=== PATIENT | female | born 1945 | race American Indian/Alaskan Native ===

== ENCOUNTER 2022-03-20 14:33 | Inpatient (IN) | payer MEDICARE, OTHER ==
[2022-03-20] MEDS ORDERED: SODIUM CHLORIDE 0.9% 500 ML 500 ML IV ONE (15:41)
--- NOTE | 2022-03-20 15:45 | Emergency Department Report ---
ED General Adult HPI - General Chief complaint: Weakness Stated complaint: LOW BLOOD PRESSURE Time Seen by Provider: 03/20/22 15:34 Source: patient, EMS (Verbal report received from emergency medical services. EMS documentation not available at time of chart dictation ), RN notes reviewed Mode of arrival: Stretcher Limitations: Altered Mental Status, Physical Limitation - History of Present Illness Initial comments: The patient was evaluated in the emergency department for symptoms described in the history of present illness. He/she was evaluated in the context of the global COVID-19 pandemic, which necessitated consideration that the patient mi ght be at risk for infection with the virus that causes COVID-19. Institutional protocols and algorithms that pertain to the evaluation of patients at risk for COVID-19 are in a state of rapid change based on information released by regulatory bodies including the CDC and federal and state organizations. These policies and algorithms were followed during the patient's care in the emergency department. Please note that these policies, procedures and recommendations changed on a rapid basis. Nephrology: Dr. Green Past medical history: Anemia of chronic disease, end-stage renal disease on h emodialysis, iron deficiency anemia, malnutrition, secondary hyperparathyroidism This is a 76-year-old female. She is brought to the hospital by emergency medical services with an EMS articulated complaint of low blood pressure during hemodialysis. Apparently patient's blood pressure dropped to the 70s during hemodialysis. It is not clear if she received a full hemodialysis session. EMS reports that blood pressure improved with resolution of hemodialysis, and also resolved with IV fluids given in the field. EMS also articulated to myself that son has endorsed decreased mentation and confusion over the past month. The patient herself is currently awake, confused, and moving 4 extremities. She states that she is cold, and is asking for a blanket. She otherwise denies complaints. The patient is confused, and does not describe the qualitative nature of symptoms, exacerbating factors relieving factors or aggravating factors. The patient denies physical pain to myself -: This afternoon - Related Data Allergies Allergy/AdvReac Type Severity Reaction Status Date / Time No Known Allergies Allergy Verified 03/20/22 14:42 ED Review of Systems ROS: Stated complaint: LOW BLOOD PRESSURE Other details as noted in HPI Comment: Unobtainable due to pts medical conditions ED Physical Exam - General Limitations: Altered Mental Status, Physical Limitation General appearance: in no apparent distress - Head Head exam: Present: atraumatic, normocephalic - Eye Eye exam: Present: normal appearance, EOMI, other (Corneal opacification consistent with cataract noted in the bilateral eye). Absent: nystagmus - ENT ENT exam: Present: normal exam, normal orophraynx, mucous membranes moist - Neck Neck exam: Present: normal inspection, full ROM. Absent: tenderness, meningismus - Respiratory Respiratory exam: Present: decreased breath sounds. Absent: respiratory distress, wheezes, rales, rhonchi, stridor - Cardiovascular Cardiovascular Exam: Present: regular rate, normal rhythm, normal heart sounds, JVD. Absent: bradycardia, tachycardia, irregular rhythm, rubs, gallop - GI/Abdominal GI/Abdominal exam: Present: soft. Absent: distended, tenderness, guarding, rebound, rigid, pulsatile mass - Extremities Exam Extremities exam: Present: full ROM, pedal edema, other (Patient has dry gangrene noted in her bilateral second toes. On the right posterior distal lower extremity, there is a chronic appearing wound with dry gangrene. There appears to be exposed tissue. Pulses are thready.). Absent: normal inspection (There is a right upper extremity fistula with an appropriate thrill. There is right upper extremity ecchymosis) - Back Exam Back exam: Present: normal inspection. Absent: tenderness, CVA tenderness (R), CVA tenderness (L), paraspinal tenderness, vertebral tenderness - Neurological Exam Neurological exam: Present: altered, other (There is no facial droop. The tongue is midline. EOMI. 5 out of 5 strength in 4 extremities.) - Psychiatric Psychiatric exam: Present: flat affect, other (Sensation is intact to light touch in 4 extremities.) - Skin Skin exam: Present: warm - Other Other exam information: 2+ femoral pulses noted in the bilateral lower extremities. 2+ radial pulses noted in the bilateral upper extremities. The bilateral lower extremities are warm. The patient is moving 4 extremities. There is no pain with passive range of motion of the upper or lower extremities ED Course Vital Signs 03/20/22 03/20/22 14:35 17:39 Temperature 97.7 F Pulse Rate 67 72 Respiratory 18 13 Rate Blood Pressure 152/68 121/51 [Left] O2 Sat by Pulse 98 98 Oximetry - Reevaluation(s) Reevaluation #1: 03/20/22 17:04 Differential diagnosis, including but not limited to: Dialysis disequilibrium syndrome, intracranial hemorrhage, electrolyte derangement, thyroid derangement, dry gangrene, peripheral artery disease, chronic wound Assessment and plan: 76-year-old female with a primary EMS articulated complaint of low blood pressure during hemodialysis. Her blood pressure is acceptable at this time. EMS reports that patient appears confused over the past month. She is found to have evidence of poor distal circulation, as well as dry gangrene, and a chronic appearing wound on the right posterior lower extremity. We will obtain consultation with both general surgery and nephrology. Her insurance verification rep Dr. Green does not present to this hospital. We will obtain appropriate laboratory studies, x-ray the chest, x-ray of the lower extremities, and duplex arterial ultrasonography of the bilateral lower extremities. We will also obtain CT scan of the brain. Reassess after initial data points. Anticipate admission to the medical service with surgery and nephrology to follow in consultation 03/20/22 17:12 I discussed the patient's history, physical, and clinical impression with both nephrology on-call, Dr. Jonn Armstrong, And general surgery on-call, Dr. Margret Guerrier They are in agreement with the plan of care, and they will follow in consultation. Nephrology request call back once laboratory studies have resulted 03/20/22 19:19 Laboratory studies are communicated to the aforementioned insurance verification rep. CT scan of the brain is reviewed and appreciated. CT scan of the brain is also reviewed by neurosurgeon on-call, Dr. Levy. He advises this is likely not an emergent finding. He advises that a CAT scan can be obtained in 4 to 6 hours. He also advises that neurosurgery can follow in consultation, if the inpatient team would like him to follow for this incidental abnormal finding. We will load with ceftriaxone and vancomycin. Hospital physician, Dr. Mcarthur to admit patient to the medical service. ED Medical Decision Making - Lab Data Result diagrams: 03/20/22 17:09 03/20/22 17:09 Vital Signs 03/20/22 14:35 Temperature 97.7 F Pulse Rate 67 Respiratory 18 Rate Blood Pressure 152/68 [Left] O2 Sat by Pulse 98 Oximetry Lab Results 03/20/22 03/20/22 03/20/22 Range/Units 17:09 17:09 17:09 WBC 10.6 (4.5-11.0) K/mm3 RBC 2.32 L (3.65-5.03) M/mm3 Hgb 7.0 L (10.1-14.3) gm/dl Hct 21.1 L (30.3-42.9) % MCV 91 (79-97) fl MCH 30 (28-32) pg MCHC 33 (30-34) % RDW 18.7 H (13.2-15.2) % Plt Count 250 (140-440) K/mm3 Lymph % (Auto) 7.1 L (13.4-35.0) % [place] % (Auto) 6.2 (0.0-7.3) % Eos % (Auto) 0.7 (0.0-4.3) % Baso % (Auto) 0.3 (0.0-1.8) % Lymph # (Auto) 0.7 L (1.2-5.4) K/mm3 [place] # (Auto) 0.7 (0.0-0.8) K/mm3 Eos # (Auto) 0.1 (0.0-0.4) K/mm3 Baso # (Auto) 0.0 (0.0-0.1) K/mm3 Seg Neutrophils % 85.7 H (40.0-70.0) % Seg Neutrophils # 9.0 H (1.8-7.7) K/mm3 PT 13.5 (12.2-14.9) Sec. INR 0.93 (0.87-1.13) Sodium 136 L (137-145) mmol/L Potassium 4.2 (3.6-5.0) mmol/L Chloride 97.7 L (98-107) mmol/L Carbon Dioxide 24 (22-30) mmol/L Anion Gap 19 mmol/L BUN 46 H (7-17) mg/dL Creatinine 7.0 H (0.6-1.2) mg/dL Estimated GFR 6 ml/min BUN/Creatinine Ratio 7 % Glucose 79 (65-100) mg/dL Lactic Acid (0.7-2.0) mmol/L Calcium 8.6 (8.4-10.2) mg/dL Total Bilirubin 0.40 (0.1-1.2) mg/dL AST 17 (5-40) units/L ALT 9 (7-56) units/L Alkaline Phosphatase 88 (35-129) units/L Ammonia (25-60) umol/L Total Creatine Kinase 100 (30-135) units/L Troponin T 0.203 H* (0.00-0.029) ng/mL Total Protein 5.5 L (6.3-8.2) g/dL Albumin 2.6 L (3.9-5) g/dL Albumin/Globulin Ratio 0.9 % Salicylates (2.8-20.0) mg/dL Acetaminophen (10.0-30.0) ug/mL 03/20/22 03/20/22 03/20/22 Range/Units 17:09 17:09 17:09 WBC (4.5-11.0) K/mm3 RBC (3.65-5.03) M/mm3 Hgb (10.1-14.3) gm/dl Hct (30.3-42.9) % MCV (79-97) fl MCH (28-32) pg MCHC (30-34) % RDW (13.2-15.2) % Plt Count (140-440) K/mm3 Lymph % (Auto) (13.4-35.0) % [place] % (Auto) (0.0-7.3) % Eos % (Auto) (0.0-4.3) % Baso % (Auto) (0.0-1.8) % Lymph # (Auto) (1.2-5.4) K/mm3 [place] # (Auto) (0.0-0.8) K/mm3 Eos # (Auto) (0.0-0.4) K/mm3 Baso # (Auto) (0.0-0.1) K/mm3 Seg Neutrophils % (40.0-70.0) % Seg Neutrophils # (1.8-7.7) K/mm3 PT (12.2-14.9) Sec. INR (0.87-1.13) Sodium (137-145) mmol/L Potassium (3.6-5.0) mmol/L Chloride (98-107) mmol/L Carbon Dioxide (22-30) mmol/L Anion Gap mmol/L BUN (7-17) mg/dL Creatinine (0.6-1.2) mg/dL Estimated GFR ml/min BUN/Creatinine Ratio % Glucose (65-100) mg/dL Lactic Acid 1.00 (0.7-2.0) mmol/L Calcium (8.4-10.2) mg/dL Total Bilirubin (0.1-1.2) mg/dL AST (5-40) units/L ALT (7-56) units/L Alkaline Phosphatase (35-129) units/L Ammonia < 10.0 L (25-60) umol/L Total Creatine Kinase (30-135) units/L Troponin T (0.00-0.029) ng/mL Total Protein (6.3-8.2) g/dL Albumin (3.9-5) g/dL Albumin/Globulin Ratio % Salicylates < 0.3 L (2.8-20.0) mg/dL Acetaminophen (10.0-30.0) ug/mL 03/20/22 Range/Units 17:09 WBC (4.5-11.0) K/mm3 RBC (3.65-5.03) M/mm3 Hgb (10.1-14.3) gm/dl Hct (30.3-42.9) % MCV (79-97) fl MCH (28-32) pg MCHC (30-34) % RDW (13.2-15.2) % Plt Count (140-440) K/mm3 Lymph % (Auto) (13.4-35.0) % [place] % (Auto) (0.0-7.3) % Eos % (Auto) (0.0-4.3) % Baso % (Auto) (0.0-1.8) % Lymph # (Auto) (1.2-5.4) K/mm3 [place] # (Auto) (0.0-0.8) K/mm3 Eos # (Auto) (0.0-0.4) K/mm3 Baso # (Auto) (0.0-0.1) K/mm3 Seg Neutrophils % (40.0-70.0) % Seg Neutrophils # (1.8-7.7) K/mm3 PT (12.2-14.9) Sec. INR (0.87-1.13) Sodium (137-145) mmol/L Potassium (3.6-5.0) mmol/L Chloride (98-107) mmol/L Carbon Dioxide (22-30) mmol/L Anion Gap mmol/L BUN (7-17) mg/dL Creatinine (0.6-1.2) mg/dL Estimated GFR ml/min BUN/Creatinine Ratio % Glucose (65-100) mg/dL Lactic Acid (0.7-2.0) mmol/L Calcium (8.4-10.2) mg/dL Total Bilirubin (0.1-1.2) mg/dL AST (5-40) units/L ALT (7-56) units/L Alkaline Phosphatase (35-129) units/L Ammonia (25-60) umol/L Total Creatine Kinase (30-135) units/L Troponin T (0.00-0.029) ng/mL Total Protein (6.3-8.2) g/dL Albumin (3.9-5) g/dL Albumin/Globulin Ratio % Salicylates (2.8-20.0) mg/dL Acetaminophen 5.0 L (10.0-30.0) ug/mL - EKG Data -: EKG Interpreted by Me EKG shows normal: sinus rhythm - EKG Data When compared to previous EKG there are: previous EKG unavailable 03/20/22 17:38 The EKG is interpreted at 17: 34 Sinus rhythm, rate 66 bpm. Normal axis, left ventricular hypertrophy, right bundle branch block, QTC 4 4 8 ms. PVC. Abnormal EKG. No endorsement of chest pain. Not a STEMI. - Radiology Data Radiology results: pending, report reviewed, image reviewed interpreted by me: Bilateral feet INDICATION: Foot wound FINDINGS: Diffuse vascular calcifications in bilateral feet. MTP joints show degenerative changes great toe bilaterally. No definite destructive change is seen in either foot. Degenerative change throughout the hindfoot is also noted. IMPRESSION: Mild diffuse soft tissue edema. Degenerative changes seen throughout the foot. Question soft tissue injury/defect in posterior right ankle soft tissues. No definite destructive change however if there is further clinical concern for osteomyelitis MRI is recommended. Right tibia and fibula 5 views INDICATION: Pain FINDINGS: Vascular calcifications are seen. No acute fracture is identified. No bony destructive change is definitely seen. No focal soft tissue swelling is identified. Signer Name: Errol Hemphill MD Signed: 03/20/2022 4:12 PM Workstation Name: [id number] CHEST 1 VIEW 03/20/2022 4:05 PM INDICATION / CLINICAL INFORMATION: Altered Mental Status. COMPARISON: None available. FINDINGS: SUPPORT DEVICES: None. HEART / MEDIASTINUM: No significant abnormality. LUNGS / PLEURA: Mild areas of increased interstitial prominence. Within the right mid and upper lung there is some interstitial prominence with mild rounded nodularity and density measuring 1.1 cm. There may be a small left effusion. No pneumothorax. ADDITIONAL FINDINGS: Left vascular stents in the arm IMPRESSION: 1. Increased interstitial prominence. Mild areas of nodularity in the right upper lung measuring 1.1 cm. A follow-up CT chest is recommended for pulmonary nodule. Stat report given. Signer Name: Errol Hemphill MD Signed: 03/20/2022 4:08 PM Workstation Name: [id number] DUPLEX DOPPLER LOWER EXTREMITY ARTERIAL, BILATERAL INDICATION / CLINICAL INFORMATION: Lower extremity wounds and suspected peripheral ar. TECHNIQUE: Arterial duplex examination of both lower extremities performed using B-mode, color flow and spectral Doppler assessment. FINDINGS: RIGHT: Common Femoral Artery: PSV 144 cm/sec. Biphasic waveform. Proximal SFA: PSV 126 cm/sec. Biphasic waveform. Mid SFA: PSV 104 cm/sec. Biphasic waveform. Distal SFA: PSV 153 cm/sec. Biphasic waveform. Popliteal Artery: PSV 56 cm/sec. Biphasic waveform. Posterior Tibial Artery: PSV 13 cm/sec. Monophasic waveform. Dorsalis Pedis Artery: PSV 12 cm/sec. Monophasic waveform. LEFT: Common Femoral Artery: PSV 116 cm/sec. Triphasic waveform. Proximal SFA: PSV 100 cm/sec. Biphasic waveform. Mid SFA: PSV 96 cm/sec. Biphasic waveform. Distal SFA: PSV 97 cm/sec. Triphasic waveform. Popliteal Artery: PSV 78 cm/sec. Triphasic waveform. Posterior Tibial Artery: PSV 41 cm/sec. Monophasic waveform. Dorsalis Pedis Art henri: PSV 41 cm/sec. Monophasic waveform. ADDITIONAL FINDINGS: None. RIGHT ITALIA: Not performed LEFT ITALIA: Not performed IMPRESSION: 1. Bilateral distal crural peripheral vascular disease with abnormal monophasic waveforms both forelegs. No occlusive disease Ankle-Brachial Index (ITALIA): - Calcified arteries > 1.4 - Normal = 0.9-1.4 - Mild PAD = 0.7-0.89 - Moderate PAD = 0.51-0.69 - Severe PAD < 0.5 Doppler Waveform: - Triphasic is normal. - Biphasic is abnormal if clear transition from triphasic signal along vascular tree. - Monophasic is abnormal. Signer Name: Geoff Meneses MD Signed: 03/20/2022 4:44 PM Workstation Name: [employer] [place] [address] [address] [place] [address] Cat Scan Report Signed Patient: KRISS RODRÍGUEZ MR#: [id number] 3 : 1945 Acct:[id number] Age/Sex: 76 / F ADM Date: 03/20/22 Loc: ED Attending Dr: Ordering Physician: MIN KENNY MD Date of Service: 03/20/22 Procedure(s): CT head/brain wo con Accession Number(s): [id number] cc: MIN KENNY MD CT head/brain wo con INDICATION / CLINICAL INFORMATION: 76 years Female; Altered Mental Status. TECHNIQUE: Routine CT head without contrast. All CT scans at this location are performed using CT dose reduction for ALARA by means of automated exposure control. COMPARISON: None. FINDINGS: BRAIN / INTRACRANIAL CONTENTS: There is a small area of mild increased attenuation adjacent to the atrium of the right lateral ventricle. This finding measures 12 mm in maximum dimension. Intraventricular meningioma, heterotopic saba matter, or perhaps subependymoma hemorrhage, most likely subacute, could be considered. Comparison with any prior exam would be helpful, if available. Alternatively, close follow-up is recommended. Encephalomalacia seen in the left parietal lobe, with associated atrophic dilat ation of the adjacent left lateral ventricle. Findings may be related to old branch MCA infarct or perhaps prior trauma. 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 Old lacunar-type infarct is seen in the superior thalamic region on the left. Otherwise, no acute hemorrhage, mass effect, midline shift, hydrocephalus, or acute, large territorial infarct. Moderate, diffuse cerebral and cerebellar atrophy. Marked degree of hippocampal atrophy suggested bilaterally. There are moderate, confluent areas of decreased attenuation in the white matter of the cerebral hemispheres. These are nonspecific findings and may be related to microangiopathy (hypertension, diabetes, atherosclerosis), given the patient's age. It might be difficult to evaluate for small areas of ischemia without diffusion imaging by MRI. CRANIOCERVICAL JUNCTION: No significant abnormality. ORBITS: No significant abnormality of visualized orbits. SINUSES / MASTOIDS: Visualized paranasal sinuses and mastoid air cells are essentially clear. ADDITIONAL FINDINGS: Significant canal narrowing seen at C3-4 from disc disease anteriorly and ligamentum flavum hypertrophy posteriorly. Findings most likely affect the cervical cord. Follow-up with MRI of the cervical spine, as clinically warranted. Significant atherosclerotic disease is seen in the anterior and posterior circulation. IMPRESSION: 1. Findings near the atrium of the right lateral ventricle, as described above. If no prior exams are available, close follow-up with pre and postcontrast CT and/or MRI of the head would be helpful for further evaluation. 2. Probable cord impingement at C3-4, as described above. 3. Otherwise, no focal mass, hemorrhage, hydrocephalus, or acute, large infarct appreciated. Signer Name: Juan Manuel Ramirez MD, III Signed: 03/20/2022 6:13 PM Workstation Name: [id number] Transcribed By: HR Dictated By: Juan Manuel Ramirez MD Electronically Authenticated By: Juan Manuel Ramirez MD Signed Date/Time: 03/20/221812 DD/ 02 TD/TT: Critical care attestation.: If time is entered above; I have spent that time in minutes in the direct care of this critically ill patient, excluding procedure time. ED Disposition Clinical Impression: End-stage renal disease on hemodialysis, Gangrene of toe of both feet, Wound of right lower extremity, Peripheral artery disease, Mental status, decreased Disposition: 09 ADMITTED INPATIENT Is pt being admited?: Yes Does the pt Need Aspirin: No Condition: Fair
--- NOTE | 2022-03-20 17:12 | XRay Report ---
CHEST 1 VIEW 03/20/2022 4:05 PM INDICATION / CLINICAL INFORMATION: Altered Mental Status. COMPARISON: None available. FINDINGS: SUPPORT DEVICES: None. HEART / MEDIASTINUM: No significant abnormality. LUNGS / PLEURA: Mild areas of increased interstitial prominence. Within the right mid and upper lung there is some interstitial prominence with mild rounded nodularity and density measuring 1.1 cm. Ther e may be a small left effusion. No pneumothorax. ADDITIONAL FINDINGS: Left vascular stents in the arm IMPRESSION: 1. Increased interstitial prominence. Mild areas of nodularity in the right upper lung measuring 1.1 cm. A follow-up CT chest is recommended for pulmonary nodule. Stat report given. Signer Name: Errol Hemphill MD Signed: 03/20/2022 5:08 PM Workstation Name: [id number]
--- NOTE | 2022-03-20 17:17 | XRay Report ---
Bilateral feet INDICATION: Foot wound FINDINGS: Diffuse vascular calcifications in bilateral feet. MTP joints show degenerative changes gre at toe bilaterally. No definite destructive change is seen in either foot. Degenerative change throug hout the hindfoot is also noted. IMPRESSION: Mild diffuse soft tissue edema. Degenerative changes seen throughout the foot. Question soft tissue i njury/defect in posterior right ankle soft tissues. No definite destructive change however if there i s further clinical concern for osteomyelitis MRI is recommended. Right tibia and fibula 5 views INDICATION: Pain FINDINGS: Vascular calcifications are seen. No acute fracture is identified. No bony destructive luke ge is definitely seen. No focal soft tissue swelling is identified. Signer Name: Errol Hemphill MD Signed: 03/20/2022 5:12 PM Workstation Name: [id number]
[2022-03-20 17:43] LABS: Basophils % (Auto) 0.3 % (0.0-1.8); Eosinophils # (Auto) 0.1 K/mm3 (0.0-0.4); Eosinophils % (Auto) 0.7 % (0.0-4.3); Hematocrit 21.1 % (30.3-42.9); Lymphocytes # (Auto) 0.7 K/mm3 (1.2-5.4); Lymphocytes % (Auto) 7.1 % (13.4-35.0); Mean Corpuscular HGB Conc 33 % (30-34); Mean Corpuscular Volume 91 fl (79-97); Monocytes # (Auto) 0.7 K/mm3 (0.0-0.8); Monocytes % (Auto) 6.2 % (0.0-7.3); Platelet Count 250 K/mm3 (140-440); Red Blood Count 2.32 M/mm3 (3.65-5.03); Red Cell Distribution Width 18.7 % (13.2-15.2)
--- NOTE | 2022-03-20 17:49 | Vascular Lab Report ---
DUPLEX DOPPLER LOWER EXTREMITY ARTERIAL, BILATERAL INDICATION / CLINICAL INFORMATION: Lower extremity wounds and suspected peripheral ar. TECHNIQUE: Arterial duplex examination of both lower extremities performed using B-mode, color flow a nd spectral Doppler assessment. FINDINGS: RIGHT: Common Femoral Artery: PSV 144 cm/sec. Biphasic waveform. Proximal SFA: PSV 126 cm/sec. Biphasic waveform. Mid SFA: PSV 104 cm/sec. Biphasic waveform. Distal SFA: PSV 153 cm/sec. Biphasic waveform. Popliteal Artery: PSV 56 cm/sec. Biphasic waveform. Posterior Tibial Artery: PSV 13 cm/sec. Monophasic waveform. Dorsalis Pedis Artery: PSV 12 cm/sec. Monophasic waveform. LEFT: Common Femoral Artery: PSV 116 cm/sec. Triphasic waveform. Proximal SFA: PSV 100 cm/sec. Biphasic waveform. Mid SFA: PSV 96 cm/sec. Biphasic waveform. Distal SFA: PSV 97 cm/sec. Triphasic waveform. Popliteal Artery: PSV 78 cm/sec. Triphasic waveform. Posterior Tibial Artery: PSV 41 cm/sec. Monophasic waveform. Dorsalis Pedis Artery: PSV 41 cm/sec. Monophasic waveform. ADDITIONAL FINDINGS: None. RIGHT ITALIA: Not performed LEFT ITALIA: Not performed IMPRESSION: 1. Bilateral distal crural peripheral vascular disease with abnormal monophasic waveforms both forele . No occlusive disease Ankle-Brachial Index (ITALIA): - Calcified arteries > 1.4 - Normal = 0.9-1.4 - Mild PAD = 0.7-0.89 - Moderate PAD = 0.51-0.69 - Severe PAD < 0.5 Doppler Waveform: - Triphasic is normal. - Biphasic is abnormal if clear transition from triphasic signal along vascular tree. - Monophasic is abnormal. Signer Name: Geoff Meneses MD Signed: 03/20/2022 5:44 PM Workstation Name: [id number]
[2022-03-20 17:50] LABS: INR 0.93 (0.87-1.13)
[2022-03-20 18:04] LABS: Albumin 2.6 g/dL (3.9-5); Calcium 8.6 mg/dL (8.4-10.2)
--- NOTE | 2022-03-20 18:17 | Cat Scan Report ---
CT head/brain wo con INDICATION / CLINICAL INFORMATION: 76 years Female; Altered Mental Status. TECHNIQUE: Routine CT head without contrast. All CT scans at this location are performed using CT dos e reduction for ALARA by means of automated exposure control. COMPARISON: None. FINDINGS: BRAIN / INTRACRANIAL CONTENTS: There is a small area of mild increased attenuation adjacent to the at rium of the right lateral ventricle. This finding measures 12 mm in maximum dimension. Intraventricul ar meningioma, heterotopic saba matter, or perhaps subependymoma hemorrhage, most likely subacute, co uld be considered. Comparison with any prior exam would be helpful, if available. Alternatively, clos e follow-up is recommended. Encephalomalacia seen in the left parietal lobe, with associated atrophic dilatation of the adjacent left lateral ventricle. Findings may be related to old branch MCA infarct or perhaps prior trauma. 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 Old lacunar-type infarct is seen in the superior thalamic region on the left. Otherwise, no acute hemorrhage, mass effect, midline shift, hydrocephalus, or acute, large territori al infarct. Moderate, diffuse cerebral and cerebellar atrophy. Marked degree of hippocampal atrophy suggested rosangela aterally. There are moderate, confluent areas of decreased attenuation in the white matter of the cerebral nina spheres. These are nonspecific findings and may be related to microangiopathy (hypertension, diabetes , atherosclerosis), given the patient's age. It might be difficult to evaluate for small areas of isc hemia without diffusion imaging by MRI. CRANIOCERVICAL JUNCTION: No significant abnormality. ORBITS: No significant abnormality of visualized orbits. SINUSES / MASTOIDS: Visualized paranasal sinuses and mastoid air cells are essentially clear. ADDITIONAL FINDINGS: Significant canal narrowing seen at C3-4 from disc disease anteriorly and ligame ntum flavum hypertrophy posteriorly. Findings most likely affect the cervical cord. Follow-up with MR I of the cervical spine, as clinically warranted. Significant atherosclerotic disease is seen in the anterior and posterior circulation. IMPRESSION: 1. Findings near the atrium of the right lateral ventricle, as described above. If no prior exams are available, close follow-up with pre and postcontrast CT and/or MRI of the head would be helpful for further evaluation. 2. Probable cord impingement at C3-4, as described above. 3. Otherwise, no focal mass, hemorrhage, hydrocephalus, or acute, large infarct appreciated. Signer Name: Juan Manuel Ramirez MD, III Signed: 03/20/2022 6:13 PM Workstation Name: [id number]
[2022-03-20 18:21] LABS: Chol/HDL Ratio 3.24 %
[2022-03-20 18:22] LABS: Erythrocyte Sedimentation Rate > 140.0 mm/Hr (0-20)
--- NOTE | 2022-03-20 19:00 | History and Physical Report ---
History of Present Illness Chief complaint: Her blood sugar pressure was low in dialysis History of present illness: 76 YO Female with Vascular Dementia, Cerebral Atherosclerosis, ESRD on HD, Anemia of Chronic Disease, Malnutrition, Hyperparathyroidism, PAD, Debility presents to ED for evaluation. Patient is guarded with diminished cognition at the time my evaluation is unable to provide history. Patient history provided by son who is at bedside during exam and interview. Patient is bedbound and nonambulatory and has a palliative performance score of 30% and requires 6/6 assistance with activities of daily living. Patient has decreased verbalization and is unable to make needs known or follow simple commands. As per son the patient developed low blood pressure during dialysis today. Patient was found t o have a systolic blood pressure in the 70s. EMS was notified and upon arrival the patient was found to be in distress and subsequently transported to [facility] for further care and evaluation of the aforementioned symptoms. The patient was seen and evaluated in the emergency department. All lab and imaging studies reviewed. Patient was found to have right lower limb ischemia complicated by dragging gangrene, end-stage renal disease, hyponatremia. Patient admitted to medical floor due to increased risk of worsening symptoms and for medical stabilization. Nephrology team consulted in ED. Interventional radiology team consulted in ED. No reports of fever, chills, chest pain, palpitation, pro ductive cough, skin rash, recent contact, known exposure to COVID-19. No prior admission for review. No medication listed at time of admission for reconciliation. Advanced care planning conducted in ED. Past History Past Medical History: ESRD, hypertension, other (See HPI) Past Surgical History: Other (Dialysis access) Social history: single, lives with family. denies: smoking, alcohol abuse, prescription drug abuse Family history: hypertension Medications and Allergies Allergies Allergy/AdvReac Type Severity Reaction Status Date / Time No Known Allergies Allergy Verified 03/20/22 19:20 Review of Systems ROS unobtainable: due to mental status Exam - Constitutional Vitals: Temp Pulse Resp BP Pulse Ox 97.7 F 72 13 121/51 98 03/20/22 14:35 03/20/22 17:39 03/20/22 17:39 03/20/22 17:39 03/20/22 17:39 General appearance: Present: mild distress, cachectic - EENT Eyes: Present: PERRL ENT: hearing intact, clear oral mucosa - Neck Neck: Present: supple, normal ROM - Respiratory Respiratory effort: labored Respiratory: bilateral: diminished - Cardiovascular Heart Sounds: Present: S1 & S2. Absent: rub, click - Extremities Extremity abnormal: black, pulses diminished Peripheral Pulses: abnormal - Abdominal General gastrointestinal: Present: soft, non-tender, non-distended - Integumentary Integumentary: Present: clear, dry - Musculoskeletal Musculoskeletal: generalized weakness - Psychiatric Psychiatric: no appropriate mood/affect, no intact judgment & insight - Neurologic Neurologic: CNII-XII intact, no focal deficits, no gait normal HEART Score - HEART Score Troponin: Troponin T 0.203 ng/mL (0.00-0.029) H* 03/20/22 17:09 Results - Labs CBC & Chem 7: 03/20/22 17:09 03/20/22 17:09 Labs: Abnormal lab results 03/20/22 03/20/22 03/20/22 Range/Units 17:09 17:09 17:09 RBC 2.32 L (3.65-5.03) M/mm3 Hgb 7.0 L (10.1-14.3) gm/dl Hct 21.1 L (30.3-42.9) % RDW 18.7 H (13.2-15.2) % Lymph % (Auto) 7.1 L (13.4-35.0) % Lymph # (Auto) 0.7 L (1.2-5.4) K/mm3 Seg Neutrophils % 85.7 H (40.0-70.0) % Seg Neutrophils # 9.0 H (1.8-7.7) K/mm3 Sodium 136 L (137-145) mmol/L Chloride 97.7 L (98-107) mmol/L BUN 46 H (7-17) mg/dL Creatinine 7.0 H (0.6-1.2) mg/dL Ammonia (25-60) umol/L Troponin T 0.203 H* (0.00-0.029) ng/mL C-Reactive Protein 7.30 H (0.00-1.30) mg/dL Total Protein 5.5 L (6.3-8.2) g/dL Albumin 2.6 L (3.9-5) g/dL Salicylates (2.8-20.0) mg/dL Acetaminophen (10.0-30.0) ug/mL 03/20/22 03/20/22 03/20/22 Range/Units 17:09 17:09 17:09 RBC (3.65-5.03) M/mm3 Hgb (10.1-14.3) gm/dl Hct (30.3-42.9) % RDW (13.2-15.2) % Lymph % (Auto) (13.4-35.0) % Lymph # (Auto) (1.2-5.4) K/mm3 Seg Neutrophils % (40.0-70.0) % Seg Neutrophils # (1.8-7.7) K/mm3 Sodium (137-145) mmol/L Chloride (98-107) mmol/L BUN (7-17) mg/dL Creatinine (0.6-1.2) mg/dL Ammonia < 10.0 L (25-60) umol/L Troponin T (0.00-0.029) ng/mL C-Reactive Protein (0.00-1.30) mg/dL Total Protein (6.3-8.2) g/dL Albumin (3.9-5) g/dL Salicylates < 0.3 L (2.8-20.0) mg/dL Acetaminophen 5.0 L (10.0-30.0) ug/mL Assessment and Plan - Patient Problems (1) Ischemia of right lower extremity Status: Acute Plan to address problem: Lower extremity arterial duplex, vascular surgery team consulted, supportive care. 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 Wound care team consulted. (3) End stage renal disease Status: Acute Plan to address problem: Nephrology team consulted in ED, dialysis as per renal team. (4) Vascular dementia Status: Acute Qualifiers: Dementia behavioral disturbance: without behavioral disturbance Qualified Code(s): F01.50 - Vascular dementia without behavioral disturbance Plan to address problem: Verbal prompting, verbal redirection, benzodiazepine therapy as clinically indicated. (5) Cerebral atherosclerosis Status: Acute Plan to address problem: Risk factor reduction, antiplatelet therapy as clinically indicated. (6) Malnutrition Status: Acute Qualifiers: Malnutrition type: protein-calorie malnutrition Protein-calorie malnutrition severity: severe Qualified Code(s): E43 - Unspecified severe protein-calorie malnutrition Plan to address problem: Increase protein intake, dietary supplementation. (7) Peripheral artery disease Status: Acute Plan to address problem: Chronic, supportive care, vascular surgery team consulted. (8) DVT prophylaxis Status: Acute Plan to address problem: SCDs bilateral lower extremities while in bed (9) Advance care planning Status: Acute Plan to address problem: Disease education conducted, care plan discussed, diagnoses discussed, prognosis discussed, patient is full code. Patient son acknowledges understanding and agreement with current care plan. +30 minutes. (10) Preventative health care Status: Acute Plan to address problem: Patient son regarding patient prognosis. Patient son counseled regarding future need for end-of-life care. Patient son counseled regarding outpatient follow-up for all age and risk factor appropriate screening test. +30 minutes.
[2022-03-20] MEDS ORDERED: ONDANSETRON 4 MG/2 ML INJ IV PRN (19:10)
[2022-03-20] MEDS ORDERED: ALBUTEROL 2.5 MG/3 ML NEBU IH PRN (19:10)
[2022-03-20] MEDS ORDERED: ACETAMINOPHEN 325 MG TAB PO PRN (19:10)
[2022-03-20] MEDS ORDERED: oxyCODONE /ACETAMINOPHEN 5-325MG TAB PO PRN (19:10)
[2022-03-20] MEDS ORDERED: HYDROmorphone 0.5 MG/0.5 ML INJ IV PRN (19:10)
[2022-03-20] MEDS ORDERED: VANCOMYCIN 500 MG in SODIUM CHLORIDE 0.9% 500 ML 500 ML IV ONE (19:17)
[2022-03-20] MEDS ORDERED: cefTRIAXone/NS 1 GM/50 ML 1 GM/50 ML BAG IV ONE (19:17)
[2022-03-20] MEDS ORDERED: VANCOMYCIN 500 MG in SODIUM CHLORIDE 0.9% 100 ML IV ONE (21:00)
[2022-03-20] MEDS ORDERED: SODIUM CHLORIDE 0.9% 1000 ML 1,000 ML ONE (21:22)
[2022-03-21 00:18] LABS: Hepatitis B Surface Antigen Non-Reactive (Negative); Hepatitis C Virus Antibody Non-Reactive (NonReactive)
--- NOTE | 2022-03-21 01:11 | Cat Scan Report ---
CT HEAD WITHOUT CONTRAST INDICATION / CLINICAL INFORMATION: AMS. TECHNIQUE: All CT scans at this location are performed using CT dose reduction for ALARA by means of automated exposure control. COMPARISON: 03/20/2022 FINDINGS: BRAIN PARENCHYMA: Moderate areas of periventricular and subcortical white matter hypoattenuation, mos t consistent with chronic small vessel ischemic changes. There is stable encephalomalacia probably re lated to remote infarct in the left parietal lobe, left thalamus, and right cerebellar hemisphere. No acute intracranial hemorrhage. There is no evidence of recent infarct. No mass effect or midline sasha ft. VENTRICULAR SYSTEM/EXTRA-AXIAL SPACES: Stable focus of mild increased attenuation adjacent to the atr ium of the right lateral ventricle. These findings remain indeterminate on this noncontrast study. Fo llow recommendations are unchanged. There is moderate cerebral atrophy and ex vacuo dilatation of the occipital horn left lateral ventricle. No extra-axial fluid collection. ORBITS: No acute findings. SKELETAL SYSTEM/SOFT TISSUES: Normal bones and soft tissues. PARANASAL SINUSES/MASTOID AIR CELLS: No significant abnormality. ADDITIONAL FINDINGS: None. IMPRESSION: No significant interval change from 03/20/2022. Stable focus of increased attenuation adjacent to the a trium of the right lateral ventricle. This remains incompletely characterized and follow-up recommend ations are unchanged. Signer Name: Chuy Correa MD Signed: 03/21/2022 1:07 AM Workstation Name: [id number]
[2022-03-21 05:36] LABS: Hemoglobin 6.5 gm/dl (10.1-14.3)
[2022-03-21 05:59] LABS: Calcium 8.6 mg/dL (8.4-10.2)
--- NOTE | 2022-03-21 08:01 | Consultation ---
History of Present Illness - Reason for Consult Consult date: 03/21/22 - History of Present Illness The patient is a 76 YO female with Dementia, Anemia of Chronic Disease, Malnutrition, Hyperparathyroidism, PAD, Debility and ESRD on HD who presented to [facility] ED 03/20/22 for evaluation of hypotension. Patient not able to provide any history and there was no family member at the bedside. Patient is bedbound and nonambulatory. Patient developed low blood pressure during dialysis. Patient was found to have a systolic blood pressure in the 70s. All lab and imaging studies reviewed. Patient was found to have right lower limb ischemia complicated by dry gangrene. Patient admitted to medical floor. Nephrology consulted for ESRD management. Past History Past Medical History: dialysis, ESRD, hypertension, other (See HPI) Past Surgical History: Other (Dialysis access) Social history: single, lives with family. denies: smoking, alcohol abuse, prescription drug abuse Family history: hypertension Medications and Allergies Allergies Allergy/AdvReac Type Severity Reaction Status Date / Time No Known Allergies Allergy Verified 03/20/22 19:20 Active Meds: Active Medications Acetaminophen (Acetaminophen 325 Mg Tab) 650 mg PO Q4H PRN PRN Reason: Pain MILD(1-3)/Fever >100.5/PATTERSON Albuterol (Albuterol 2.5 Mg/3 Ml Nebu) 2.5 mg IH Q4HRT PRN PRN Reason: Shortness Of Breath Hydromorphone HCl (Hydromorphone 0.5 Mg/0.5 Ml Inj) 0.5 mg IV Q13H PRN PRN Reason: Pain , Severe (7-10) Ondansetron HCl (Ondansetron 4 Mg/2 Ml Inj) 4 mg IV Q8H PRN PRN Reason: Nausea And Vomiting Oxycodone/Acetaminophen (Oxycodone /Acetaminophen 5-325mg Tab) 1 tab PO Q6H PRN PRN Reason: Pain, Moderate (4-6) Sodium Chloride (Sodium Chloride 0.9% 10 Ml Flush Syringe) 10 ml IV BID LEONOR Last Admin: 03/20/22 23:55 Dose: 10 ml Sodium Chloride (Sodium Chloride 0.9% 10 Ml Flush Syringe) 10 ml IV PRN PRN PRN Reason: LINE FLUSH Review of Systems ROS unobtainable: due to mental status Exam - Vital Signs Vital signs: Vital Signs Temp Pulse Resp BP Pulse Ox 97.7 F 67 18 152/68 98 03/20/22 14:35 03/20/22 14:35 03/20/22 14:35 03/20/22 14:35 03/20/22 14:35 Results - Lab Results 03/21/22 05:06 03/21/22 05:06 Most recent lab results Calcium 8.6 mg/dL (8.4-10.2) 03/21/22 05:06 Assessment and Plan 1. End Stage Renal Disease: Patient is a on maintenance hemodialysis, ?MWF schedule. Unable to get any further information. Meds dosage based on GFR. Hemodialysis: today. 2. FEN: Hyponatremia, HD today, monitor. Volume overload, UF with HD, monitor. Monitor lytes. 3. Right lower extremity Ischemia / PAD: Associated cellulitis/dry gangrene. Abx. 4. Sepsis: 2/2 R lower extremity cellulitis. Abx. 5. Normocytic Anemia, POA: PRBC as needed. Epogen with HD. 6. Hypotension: BP is better now. Monitor. 7. Dementia. 8. Protein calorie malnutrition. Subjective: Patient was seen and examined at the bedside. Examination: General appearance: well-developed, emaciated, appears stated age, no distress, not cooperative HEENT: ATNC, no icterus Neck: trachea midline Respiratory: clear to auscultation, diminished bibasilar Heart: S1S2, appears regular, no murmur Gastrointestinal: normoactive bowel sounds, NT Integumentary: R 2nd toe necrotic, R arm bruise Neurologic: somnolent, not following any command MS: legs are crossed Ext: trace LE edema noted Hemodialysis access: R arm AVF
--- NOTE | 2022-03-21 09:49 | Progress Note ---
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 On admission, patient was noted to be guarded with diminished cognition and unable to provide history. Patient history provided by son who reported that the. Patient is bedbound and nonambulatory and has a palliative performance score of 30% and requires 6/6 assistance with activities of daily living. Patient has decreased verbalization and is unable to make needs known or follow simple commands. As per son, the patient developed low blood pressure during dialysis today. Prashanth pringle was found to have a systolic blood pressure in the 70s. EMS was notified and upon arrival the patient was found to be in distress and subsequently transported to [facility] for further care and evaluation of the aforementioned symptoms. The patient was seen and evaluated in the emergency department. All lab and imaging studies reviewed. Patient was found to have right lower limb ischemia complicated by dry gangrene, end-stage renal disease, hyponatremia. Patient admitted to medical floor due to increased risk of worsening symptoms and for medical stabilization. Nephrology team consulted in ED. Interventional radiology team consulted in ED. Right ischemic lower extremity Right lower extremity cellulitis/dry gangrene Sepsis. Patient meets criteria given the tachycardia, tachypnea and diagnosis of right lower extremity cellulitis Peripheral vascular disease ESRD on HD Vascular dementia Cerebral atherosclerosis Protein calorie malnutrition 03/21/2022. Continue IV antibiotics. Follow-up blood cultures. Await IR consultation. Continue hemodialysis per nephrology recommendations. Nephrology consultation pending. History Interval history: No new issues overnight. Hospitalist Physical - Constitutional Vitals: Temp Pulse Resp BP Pulse Ox 97.6 F 84 18 142/46 100 03/21/22 09:37 03/21/22 01:08 03/21/22 09:37 03/21/22 09:37 03/21/22 01:08 General appearance: Present: mild distress, cachectic - EENT Eyes: Present: PERRL, EOM intact ENT: hearing intact, clear oral mucosa, dentition normal - Neck Neck: Present: supple, normal ROM - Respiratory Respiratory effort: normal Respiratory: bilateral: CTA - Cardiovascular Rhythm: regular Heart Sounds: Present: S1 & S2. Absent: gallop, rub - Extremities Extremities: no ischemia, No edema, Full ROM - Abdominal General gastrointestinal: soft, non-tender, non-distended, normal bowel sounds - Integumentary Integumentary: Present: clear, warm, dry - Neurologic Neurologic: CNII-XII intact, moves all extremities HEART Score - HEART Score Troponin: Troponin T 0.203 ng/mL (0.00-0.029) H* 03/20/22 17:09 Results - Labs CBC & Chem 7: 03/21/22 05:06 03/21/22 05:06 Labs: Laboratory Last Values WBC 10.6 K/mm3 (4.5-11.0) 03/20/22 17:09 RBC 2.32 M/mm3 (3.65-5.03) L 03/20/22 17:09 Hgb 6.5 gm/dl (10.1-14.3) L 03/21/22 05:06 Hct 20.0 % (30.3-42.9) L 03/21/22 05:06 MCV 91 fl (79-97) 03/20/22 17:09 MCH 30 pg (28-32) 03/20/22 17:09 MCHC 33 % (30-34) 03/20/22 17:09 RDW 18.7 % (13.2-15.2) H 03/20/22 17:09 Plt Count 250 K/mm3 (140-440) 03/20/22 17:09 Lymph % (Auto) 7.1 % (13.4-35.0) L 03/20/22 17:09 [place] % (Auto) 6.2 % (0.0-7.3) 03/20/22 17:09 Eos % (Auto) 0.7 % (0.0-4.3) 03/20/22 17:09 Baso % (Auto) 0.3 % (0.0-1.8) 03/20/22 17:09 Lymph # (Auto) 0.7 K/mm3 (1.2-5.4) L 03/20/22 17:09 [place] # (Auto) 0.7 K/mm3 (0.0-0.8) 03/20/22 17:09 Eos # (Auto) 0.1 K/mm3 (0.0-0.4) 03/20/22 17:09 Baso # (Auto) 0.0 K/mm3 (0.0-0.1) 03/20/22 17:09 Seg Neutrophils % 85.7 % (40.0-70.0) H 03/20/22 17:09 Seg Neutrophils # 9.0 K/mm3 (1.8-7.7) H 03/20/22 17:09 ESR > 140.0 mm/Hr (0-20) 03/20/22 17:09 PT 13.5 Sec. (12.2-14.9) 03/20/22 17:09 INR 0.93 (0.87-1.13) 03/20/22 17:09 Sodium 137 mmol/L (137-145) 03/21/22 05:06 Potassium 4.3 mmol/L (3.6-5.0) 03/21/22 05:06 Chloride 99.9 mmol/L (98-107) 03/21/22 05:06 Carbon Dioxide 22 mmol/L (22-30) 03/21/22 05:06 Anion Gap 19 mmol/L 03/21/22 05:06 BUN 52 mg/dL (7-17) H 03/21/22 05:06 Creatinine 7.6 mg/dL (0.6-1.2) H 03/21/22 05:06 Estimated GFR 6 ml/min 03/21/22 05:06 BUN/Creatinine Ratio 7 % 03/21/22 05:06 Glucose 72 mg/dL (65-100) 03/21/22 05:06 Lactic Acid 1.00 mmol/L (0.7-2.0) 03/20/22 17:09 Calcium 8.6 mg/dL (8.4-10.2) 03/21/22 05:06 Total Bilirubin 0.40 mg/dL (0.1-1.2) 03/20/22 17:09 AST 17 units/L (5-40) 03/20/22 17:09 ALT 9 units/L (7-56) 03/20/22 17:09 Alkaline Phosphatase 88 units/L (35-129) 03/20/22 17:09 Ammonia < 10.0 umol/L (25-60) L 03/20/22 17:09 Total Creatine Kinase 100 units/L (30-135) 03/20/22 17:09 Troponin T 0.203 ng/mL (0.00-0.029) H* 03/20/22 17:09 C-Reactive Protein 7.30 mg/dL (0.00-1.30) H 03/20/22 17:09 Total Protein 5.5 g/dL (6.3-8.2) L 03/20/22 17:09 Albumin 2.6 g/dL (3.9-5) L 03/20/22 17:09 Albumin/Globulin Ratio 0.9 % 03/20/22 17:09 Triglycerides 118 mg/dL (2-149) 03/20/22 17:09 Cholesterol 133 mg/dL (50-199) 03/20/22 17:09 LDL Cholesterol Direct 64 mg/dL (50-130) 03/20/22 17:09 HDL Cholesterol 41 mg/dL (40-59) 03/20/22 17:09 Cholesterol/HDL Ratio 3.24 % 03/20/22 17:09 TSH 3.590 mlU/mL (0.270-4.200) 03/20/22 17:09 Salicylates < 0.3 mg/dL (2.8-20.0) L 03/20/22 17:09 Acetaminophen 5.0 ug/mL (10.0-30.0) L 03/20/22 17:09 Hepatitis A IgM Ab Non-reactive (NonReactive) 03/20/22 23:31 Hep Bs Antigen Non-reactive (Negative) 03/20/22 23:31 Hep B Core IgM Ab Non-reactive (NonReactive) 03/20/22 23:31 Hepatitis C Antibody Non-reactive (NonReactive) 03/20/22 23:31 Microbiology: Microbiology 03/20/22 17:09 Peripheral/Venous Blood Culture - Preliminary Culture in Progress 03/20/22 17:09 Peripheral/Venous Blood Culture - Preliminary Culture in Progress Active Medications - Current Medications Current Medications: Generic Name Dose Route Start Last Admin Trade Name Freq PRN Reason Stop Dose Admin Acetaminophen 650 mg 03/20/22 19:10 Acetaminophen 325 Mg Tab PO Q4H PRN Pain MILD(1-3)/Fever >100.5/PATTERSON Albuterol 2.5 mg 03/20/22 19:10 Albuterol 2.5 Mg/3 Ml Nebu IH Q4HRT PRN Shortness Of Breath Hydromorphone HCl 0.5 mg 03/20/22 19:10 Hydromorphone 0.5 Mg/0.5 Ml Inj IV Q13H PRN Pain , Severe (7-10) Ondansetron HCl 4 mg 03/20/22 19:10 Ondansetron 4 Mg/2 Ml Inj IV Q8H PRN Nausea And Vomiting Oxycodone/Acetaminophen 1 tab 03/20/22 19:10 Oxycodone /Acetaminophen 5-325mg Tab PO Q6H PRN Pain, Moderate (4-6) Sodium Chloride 10 ml 03/20/22 22:00 03/21/22 09:39 Sodium Chloride 0.9% 10 Ml Flush Syringe IV 10 ml BID LEONOR Administration Sodium Chloride 10 ml 03/20/22 19:10 Sodium Chloride 0.9% 10 Ml Flush Syringe IV PRN PRN LINE FLUSH
[2022-03-21] MEDS ORDERED: SODIUM CHLORIDE 0.9% 100 ML IV PRN (11:00)
--- NOTE | 2022-03-21 11:28 | Consultation ---
History of Present Illness Consult date: 03/21/22 Reason for consult: wound care Chief complaint: leg wounds - History of present illness History of present illness: 76 yo F with PMHx of esrd on hd, anemia, malnutrition who was brought to ER by EMS for hypotension during HD. Patient was treated with IV fluids and HD terminated. Her BP responded well to those interventions. Patient also with AMS. Pt found to have chronic appearing lower extremity wounds with possible infection, non palpable pedal pulses. General surgery consulted for evaluation of wounds. All hx obtained from chart. Past History Past Medical History: ESRD, hypertension, other (See HPI) Past Surgical History: Other (Dialysis access) Social history: single, lives with family. denies: smoking, alcohol abuse, prescription drug abuse Family history: hypertension Medications and Allergies Allergies Allergy/AdvReac Type Severity Reaction Status Date / Time No Known Allergies Allergy Verified 03/20/22 19:20 Active Meds: Active Medications Acetaminophen (Acetaminophen 325 Mg Tab) 650 mg PO Q4H PRN PRN Reason: Pain MILD(1-3)/Fever >100.5/PATTERSON Albuterol (Albuterol 2.5 Mg/3 Ml Nebu) 2.5 mg IH Q4HRT PRN PRN Reason: Shortness Of Breath Epoetin Raulito-epbx (Epoetin Raulito-Epbx 20,000 Unit/1 Ml Vial) 20,000 unit IV GARETH PRN PRN Reason: hemodialysis Hydromorphone HCl (Hydromorphone 0.5 Mg/0.5 Ml Inj) 0.5 mg IV Q13H PRN PRN Reason: Pain , Severe (7-10) Sodium Chloride (Nacl 0.9%) 100 mls @ 999 mls/hr IV GARETH PRN PRN Reason: Hypotension Ondansetron HCl (Ondansetron 4 Mg/2 Ml Inj) 4 mg IV Q8H PRN PRN Reason: Nausea And Vomiting Oxycodone/Acetaminophen (Oxycodone /Acetaminophen 5-325mg Tab) 1 tab PO Q6H PRN PRN Reason: Pain, Moderate (4-6) Sodium Chloride (Sodium Chloride 0.9% 10 Ml Flush Syringe) 10 ml IV BID LEONOR Last Admin: 03/21/22 09:39 Dose: 10 ml Sodium Chloride (Sodium Chloride 0.9% 10 Ml Flush Syringe) 10 ml IV PRN PRN PRN Reason: LINE FLUSH Exam Vital Signs Temp Pulse Resp BP Pulse Ox 97.7 F 67 18 152/68 98 03/20/22 14:35 03/20/22 14:35 03/20/22 14:35 03/20/22 14:35 03/20/22 14:35 Narrative exam: Gen: Awake, alert. NAD. Not oriented. Cachectic. Asking to go home. ENT; no scleral icterus or conjuntival pallor CV: S1, S2+ Resp: even and unlabored Ext: Contracted b/l LE. B/L 2nd toe dry gangrene. Feet are warm but cannot palpate distal pulses. Right posterior ankle wound with dressing c/d/i. Photos reviewed - full thickness wound with eschar and fat exposed. Results - Labs 03/21/22 05:06 03/21/22 05:06 Abnormal lab results 03/20/22 03/20/22 03/20/22 Range/Units 17:09 17:09 17:09 RBC 2.32 L (3.65-5.03) M/mm3 Hgb 7.0 L (10.1-14.3) gm/dl Hct 21.1 L (30.3-42.9) % RDW 18.7 H (13.2-15.2) % Lymph % (Auto) 7.1 L (13.4-35.0) % Lymph # (Auto) 0.7 L (1.2-5.4) K/mm3 Seg Neutrophils % 85.7 H (40.0-70.0) % Seg Neutrophils # 9.0 H (1.8-7.7) K/mm3 Sodium 136 L (137-145) mmol/L Chloride 97.7 L (98-107) mmol/L BUN 46 H (7-17) mg/dL Creatinine 7.0 H (0.6-1.2) mg/dL Ammonia (25-60) umol/L Troponin T 0.203 H* (0.00-0.029) ng/mL C-Reactive Protein 7.30 H (0.00-1.30) mg/dL Total Protein 5.5 L (6.3-8.2) g/dL Albumin 2.6 L (3.9-5) g/dL Salicylates (2.8-20.0) mg/dL Acetaminophen (10.0-30.0) ug/mL 03/20/22 03/20/22 03/20/22 Range/Units 17:09 17:09 17:09 RBC (3.65-5.03) M/mm3 Hgb (10.1-14.3) gm/dl Hct (30.3-42.9) % RDW (13.2-15.2) % Lymph % (Auto) (13.4-35.0) % Lymph # (Auto) (1.2-5.4) K/mm3 Seg Neutrophils % (40.0-70.0) % Seg Neutrophils # (1.8-7.7) K/mm3 Sodium (137-145) mmol/L Chloride (98-107) mmol/L BUN (7-17) mg/dL Creatinine (0.6-1.2) mg/dL Ammonia < 10.0 L (25-60) umol/L Troponin T (0.00-0.029) ng/mL C-Reactive Protein (0.00-1.30) mg/dL Total Protein (6.3-8.2) g/dL Albumin (3.9-5) g/dL Salicylates < 0.3 L (2.8-20.0) mg/dL Acetaminophen 5.0 L (10.0-30.0) ug/mL 03/21/22 03/21/22 Range/Units 05:06 05:06 RBC (3.65-5.03) M/mm3 Hgb 6.5 L (10.1-14.3) gm/dl Hct 20.0 L (30.3-42.9) % RDW (13.2-15.2) % Lymph % (Auto) (13.4-35.0) % Lymph # (Auto) (1.2-5.4) K/mm3 Seg Neutrophils % (40.0-70.0) % Seg Neutrophils # (1.8-7.7) K/mm3 Sodium (137-145) mmol/L Chloride (98-107) mmol/L BUN 52 H (7-17) mg/dL Creatinine 7.6 H (0.6-1.2) mg/dL Ammonia (25-60) umol/L Troponin T (0.00-0.029) ng/mL C-Reactive Protein (0.00-1.30) mg/dL Total Protein (6.3-8.2) g/dL Albumin (3.9-5) g/dL Salicylates (2.8-20.0) mg/dL Acetaminophen (10.0-30.0) ug/mL Diabetes panel 03/20/22 03/21/22 Range/Units 17:09 05:06 Sodium 136 L 137 (137-145) mmol/L Potassium 4.2 4.3 (3.6-5.0) mmol/L Chloride 97.7 L 99.9 (98-107) mmol/L Carbon Dioxide 24 22 (22-30) mmol/L BUN 46 H 52 H (7-17) mg/dL Creatinine 7.0 H 7.6 H (0.6-1.2) mg/dL Glucose 79 72 (65-100) mg/dL Calcium 8.6 8.6 (8.4-10.2) mg/dL AST 17 (5-40) units/L ALT 9 (7-56) units/L Alkaline Phosphatase 88 (35-129) units/L Total Protein 5.5 L (6.3-8.2) g/dL Albumin 2.6 L (3.9-5) g/dL Triglycerides 118 (2-149) mg/dL HDL Cholesterol 41 (40-59) mg/dL Thyroid panel 03/20/22 Range/Units 17:09 TSH 3.590 (0.270-4.200) mlU/mL Calcium panel 03/20/22 03/21/22 Range/Units 17:09 05:06 Calcium 8.6 8.6 (8.4-10.2) mg/dL Albumin 2.6 L (3.9-5) g/dL Pituitary panel 03/20/22 03/20/22 03/21/22 Range/Units 17:09 17:09 05:06 Sodium 136 L 137 (137-145) mmol/L Potassium 4.2 4.3 (3.6-5.0) mmol/L Chloride 97.7 L 99.9 (98-107) mmol/L Carbon Dioxide 24 22 (22-30) mmol/L BUN 46 H 52 H (7-17) mg/dL Creatinine 7.0 H 7.6 H (0.6-1.2) mg/dL Glucose 79 72 (65-100) mg/dL Calcium 8.6 8.6 (8.4-10.2) mg/dL TSH 3.590 (0.270-4.200) mlU/mL Adrenal panel 03/20/22 03/21/22 Range/Units 17:09 05:06 Sodium 136 L 137 (137-145) mmol/L Potassium 4.2 4.3 (3.6-5.0) mmol/L Chloride 97.7 L 99.9 (98-107) mmol/L Carbon Dioxide 24 22 (22-30) mmol/L BUN 46 H 52 H (7-17) mg/dL Creatinine 7.0 H 7.6 H (0.6-1.2) mg/dL Glucose 79 72 (65-100) mg/dL Calcium 8.6 8.6 (8.4-10.2) mg/dL Total Bilirubin 0.40 (0.1-1.2) mg/dL AST 17 (5-40) units/L ALT 9 (7-56) units/L Alkaline Phosphatase 88 (35-129) units/L Total Protein 5.5 L (6.3-8.2) g/dL Albumin 2.6 L (3.9-5) g/dL - Imaging Additional studies: R foot and tib/fib xray U/s art doppler LE Assessment and Plan 76 yo F with 1. chronic RLE wounds 2. PAD 3. protein calorie malnutrition 4. ESRD of HD Plan: 1. empiric IV abx 2. topical wound care 3. Vascular consult for abnormal arterial u/s 4. optimize nutrition 5. offload bony prominences 6. HD per nephro 7. Follow up vascular recs. May need to be evaluated for amputation. Thank you, please call with questions.
--- NOTE | 2022-03-21 12:05 | Consultation ---
History of Present Illness - Reason for Consult Consult date: 03/21/22 PVD with gangrene and nonhealing wounds - History of Present Illness Patient with a history of end-stage renal disease on hemodialysis, vascular dementia who is bedbound with bilateral lower extremities partially contracted. She is noted to have chronic appearing wounds to the medial aspect of her right ankle with gangrenous changes to multiple toes on both feet. Past History Past Medical History: ESRD, hypertension, other (See HPI) Past Surgical History: Other (Dialysis access) Social history: single, lives with family. denies: smoking, alcohol abuse, prescription drug abuse Family history: hypertension Medications and Allergies Allergies Allergy/AdvReac Type Severity Reaction Status Date / Time No Known Allergies Allergy Verified 03/20/22 19:20 Active Meds: Active Medications Acetaminophen (Acetaminophen 325 Mg Tab) 650 mg PO Q4H PRN PRN Reason: Pain MILD(1-3)/Fever >100.5/PATTERSON Albuterol (Albuterol 2.5 Mg/3 Ml Nebu) 2.5 mg IH Q4HRT PRN PRN Reason: Shortness Of Breath Epoetin Raulito-epbx (Epoetin Raulito-Epbx 20,000 Unit/1 Ml Vial) 20,000 unit IV GARETH PRN PRN Reason: hemodialysis Hydromorphone HCl (Hydromorphone 0.5 Mg/0.5 Ml Inj) 0.5 mg IV Q13H PRN PRN Reason: Pain , Severe (7-10) Sodium Chloride (Nacl 0.9%) 100 mls @ 999 mls/hr IV GARETH PRN PRN Reason: Hypotension Ondansetron HCl (Ondansetron 4 Mg/2 Ml Inj) 4 mg IV Q8H PRN PRN Reason: Nausea And Vomiting Oxycodone/Acetaminophen (Oxycodone /Acetaminophen 5-325mg Tab) 1 tab PO Q6H PRN PRN Reason: Pain, Moderate (4-6) Sodium Chloride (Sodium Chloride 0.9% 10 Ml Flush Syringe) 10 ml IV BID LEONOR Last Admin: 03/21/22 09:39 Dose: 10 ml Sodium Chloride (Sodium Chloride 0.9% 10 Ml Flush Syringe) 10 ml IV PRN PRN PRN Reason: LINE FLUSH Review of Systems ROS unobtainable: due to mental status Exam - Constitutional Vitals: Temp Pulse Resp BP Pulse Ox 97.6 F 84 20 142/46 98 03/21/22 09:37 03/21/22 01:08 03/21/22 10:39 03/21/22 09:37 03/21/22 10:39 General appearance: Present: cachectic - EENT ENT: hearing intact - Neck Neck: Present: normal ROM - Respiratory Respiratory effort: normal - Extremities Extremities: abnormal - Abdominal General gastrointestinal: Present: deferred - Rectal Rectal Exam: deferred Results - Labs CBC & Chem 7: 03/21/22 05:06 03/21/22 05:06 Labs: Abnormal lab results 03/20/22 03/20/22 03/20/22 Range/Units 17:09 17:09 17:09 RBC 2.32 L (3.65-5.03) M/mm3 Hgb 7.0 L (10.1-14.3) gm/dl Hct 21.1 L (30.3-42.9) % RDW 18.7 H (13.2-15.2) % Lymph % (Auto) 7.1 L (13.4-35.0) % Lymph # (Auto) 0.7 L (1.2-5.4) K/mm3 Seg Neutrophils % 85.7 H (40.0-70.0) % Seg Neutrophils # 9.0 H (1.8-7.7) K/mm3 Sodium 136 L (137-145) mmol/L Chloride 97.7 L (98-107) mmol/L BUN 46 H (7-17) mg/dL Creatinine 7.0 H (0.6-1.2) mg/dL Ammonia (25-60) umol/L Troponin T 0.203 H* (0.00-0.029) ng/mL C-Reactive Protein 7.30 H (0.00-1.30) mg/dL Total Protein 5.5 L (6.3-8.2) g/dL Albumin 2.6 L (3.9-5) g/dL Salicylates (2.8-20.0) mg/dL Acetaminophen (10.0-30.0) ug/mL 03/20/22 03/20/22 03/20/22 Range/Units 17:09 17:09 17:09 RBC (3.65-5.03) M/mm3 Hgb (10.1-14.3) gm/dl Hct (30.3-42.9) % RDW (13.2-15.2) % Lymph % (Auto) (13.4-35.0) % Lymph # (Auto) (1.2-5.4) K/mm3 Seg Neutrophils % (40.0-70.0) % Seg Neutrophils # (1.8-7.7) K/mm3 Sodium (137-145) mmol/L Chloride (98-107) mmol/L BUN (7-17) mg/dL Creatinine (0.6-1.2) mg/dL Ammonia < 10.0 L (25-60) umol/L Troponin T (0.00-0.029) ng/mL C-Reactive Protein (0.00-1.30) mg/dL Total Protein (6.3-8.2) g/dL Albumin (3.9-5) g/dL Salicylates < 0.3 L (2.8-20.0) mg/dL Acetaminophen 5.0 L (10.0-30.0) ug/mL 03/21/22 03/21/22 Range/Units 05:06 05:06 RBC (3.65-5.03) M/mm3 Hgb 6.5 L (10.1-14.3) gm/dl Hct 20.0 L (30.3-42.9) % RDW (13.2-15.2) % Lymph % (Auto) (13.4-35.0) % Lymph # (Auto) (1.2-5.4) K/mm3 Seg Neutrophils % (40.0-70.0) % Seg Neutrophils # (1.8-7.7) K/mm3 Sodium (137-145) mmol/L Chloride (98-107) mmol/L BUN 52 H (7-17) mg/dL Creatinine 7.6 H (0.6-1.2) mg/dL Ammonia (25-60) umol/L Troponin T (0.00-0.029) ng/mL C-Reactive Protein (0.00-1.30) mg/dL Total Protein (6.3-8.2) g/dL Albumin (3.9-5) g/dL Salicylates (2.8-20.0) mg/dL Acetaminophen (10.0-30.0) ug/mL - Imaging and Cardiology Venous US: report reviewed, image reviewed Assessment and Plan Patient with PVD with slow to heal wounds. We will obtain a CTA of the abdomen and pelvis with bilateral lower extremity runoff. Ultimately, the patient may require amputations as she is bedbound, contracted and nonambulatory. Based on her ultrasound, the patient appears to have popliteal disease and distal disease.
--- NOTE | 2022-03-22 10:00 | Progress Note ---
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 On admission, patient was noted to be guarded with diminished cognition and unable to provide history. Patient history provided by son who reported that the. Patient is bedbound and nonambulatory and has a palliative performance score of 30% and requires 6/6 assistance with activities of daily living. Patient has decreased verbalization and is unable to make needs known or follow simple commands. As per son, the patient developed low blood pressure during dialysis today. Prashanth pringle was found to have a systolic blood pressure in the 70s. EMS was notified and upon arrival the patient was found to be in distress and subsequently transported to [facility] for further care and evaluation of the aforementioned symptoms. The patient was seen and evaluated in the emergency department. All lab and imaging studies reviewed. Patient was found to have right lower limb ischemia complicated by dry gangrene, end-stage renal disease, hyponatremia. Patient admitted to medical floor due to increased risk of worsening symptoms and for medical stabilization. Nephrology team consulted in ED. Interventional radiology team consulted in ED. Right ischemic lower extremity Right lower extremity cellulitis/dry gangrene Sepsis. Patient meets criteria given the tachycardia, tachypnea and diagnosis of right lower extremity cellulitis Peripheral vascular disease ESRD on HD Vascular dementia Cerebral atherosclerosis Protein calorie malnutrition 03/21/2022. Continue IV antibiotics. Follow-up blood cultures. Await IR consultation. Continue hemodialysis per nephrology recommendations. Nephrology consultation pending. 03/22/2022. Arterial Doppler reveals bilateral distal crural peripheral vascular disease with abnormal monophasic waveforms in both forelegs. No occlusive disease. Based on her ultrasound, the patient appears to have popliteal disease and distal disease. Plain films essentially negative. Continue empiric IV antibiotics and wound care. Vascular to perform CTA of the abdomen and pelvis with lower extremity runoffs. Patient may require amputations given nonambulatory/bedbound status, contractures. History Interval history: No new issues overnight. Hospitalist Physical - Constitutional Vitals: Temp Pulse Resp BP Pulse Ox 98.6 F 93 H 20 142/64 96 03/22/22 06:00 03/22/22 06:00 03/22/22 06:00 03/22/22 06:00 03/22/22 06:00 General appearance: Present: cachectic - EENT Eyes: Present: PERRL, EOM intact ENT: hearing intact, clear oral mucosa, dentition normal - Neck Neck: Present: supple, normal ROM - Respiratory Respiratory effort: normal Respiratory: bilateral: CTA - Cardiovascular Rhythm: regular Heart Sounds: Present: S1 & S2. Absent: gallop, rub - Extremities Extremities: no ischemia, No edema, Full ROM - Abdominal General gastrointestinal: soft, non-tender, non-distended, normal bowel sounds - Integumentary Integumentary: Present: clear, warm, dry - Neurologic Neurologic: CNII-XII intact, moves all extremities HEART Score - HEART Score Troponin: Troponin T 0.203 ng/mL (0.00-0.029) H* 03/20/22 17:09 Results - Labs CBC & Chem 7: 03/21/22 05:06 03/21/22 05:06 Labs: Laboratory Last Values WBC 10.6 K/mm3 (4.5-11.0) 03/20/22 17:09 RBC 2.32 M/mm3 (3.65-5.03) L 03/20/22 17:09 Hgb 6.5 gm/dl (10.1-14.3) L 03/21/22 05:06 Hct 20.0 % (30.3-42.9) L 03/21/22 05:06 MCV 91 fl (79-97) 03/20/22 17:09 MCH 30 pg (28-32) 03/20/22 17:09 MCHC 33 % (30-34) 03/20/22 17:09 RDW 18.7 % (13.2-15.2) H 03/20/22 17:09 Plt Count 250 K/mm3 (140-440) 03/20/22 17:09 Lymph % (Auto) 7.1 % (13.4-35.0) L 03/20/22 17:09 [place] % (Auto) 6.2 % (0.0-7.3) 03/20/22 17:09 Eos % (Auto) 0.7 % (0.0-4.3) 03/20/22 17:09 Baso % (Auto) 0.3 % (0.0-1.8) 03/20/22 17:09 Lymph # (Auto) 0.7 K/mm3 (1.2-5.4) L 03/20/22 17:09 [place] # (Auto) 0.7 K/mm3 (0.0-0.8) 03/20/22 17:09 Eos # (Auto) 0.1 K/mm3 (0.0-0.4) 03/20/22 17:09 Baso # (Auto) 0.0 K/mm3 (0.0-0.1) 03/20/22 17:09 Seg Neutrophils % 85.7 % (40.0-70.0) H 03/20/22 17:09 Seg Neutrophils # 9.0 K/mm3 (1.8-7.7) H 03/20/22 17:09 ESR > 140.0 mm/Hr (0-20) 03/20/22 17:09 PT 13.5 Sec. (12.2-14.9) 03/20/22 17:09 INR 0.93 (0.87-1.13) 03/20/22 17:09 Sodium 137 mmol/L (137-145) 03/21/22 05:06 Potassium 4.3 mmol/L (3.6-5.0) 03/21/22 05:06 Chloride 99.9 mmol/L (98-107) 03/21/22 05:06 Carbon Dioxide 22 mmol/L (22-30) 03/21/22 05:06 Anion Gap 19 mmol/L 03/21/22 05:06 BUN 52 mg/dL (7-17) H 03/21/22 05:06 Creatinine 7.6 mg/dL (0.6-1.2) H 03/21/22 05:06 Estimated GFR 6 ml/min 03/21/22 05:06 BUN/Creatinine Ratio 7 % 03/21/22 05:06 Glucose 72 mg/dL (65-100) 03/21/22 05:06 Lactic Acid 1.00 mmol/L (0.7-2.0) 03/20/22 17:09 Calcium 8.6 mg/dL (8.4-10.2) 03/21/22 05:06 Total Bilirubin 0.40 mg/dL (0.1-1.2) 03/20/22 17:09 AST 17 units/L (5-40) 03/20/22 17:09 ALT 9 units/L (7-56) 03/20/22 17:09 Alkaline Phosphatase 88 units/L (35-129) 03/20/22 17:09 Ammonia < 10.0 umol/L (25-60) L 03/20/22 17:09 Total Creatine Kinase 100 units/L (30-135) 03/20/22 17:09 Troponin T 0.203 ng/mL (0.00-0.029) H* 03/20/22 17:09 C-Reactive Protein 7.30 mg/dL (0.00-1.30) H 03/20/22 17:09 Total Protein 5.5 g/dL (6.3-8.2) L 03/20/22 17:09 Albumin 2.6 g/dL (3.9-5) L 03/20/22 17:09 Albumin/Globulin Ratio 0.9 % 03/20/22 17:09 Triglycerides 118 mg/dL (2-149) 03/20/22 17:09 Cholesterol 133 mg/dL (50-199) 03/20/22 17:09 LDL Cholesterol Direct 64 mg/dL (50-130) 03/20/22 17:09 HDL Cholesterol 41 mg/dL (40-59) 03/20/22 17:09 Cholesterol/HDL Ratio 3.24 % 03/20/22 17:09 TSH 3.590 mlU/mL (0.270-4.200) 03/20/22 17:09 Salicylates < 0.3 mg/dL (2.8-20.0) L 03/20/22 17:09 Acetaminophen 5.0 ug/mL (10.0-30.0) L 03/20/22 17:09 Hepatitis A IgM Ab Non-reactive (NonReactive) 03/20/22 23:31 Hep Bs Antigen Non-reactive (Negative) 03/20/22 23:31 Hep B Core IgM Ab Non-reactive (NonReactive) 03/20/22 23:31 Hepatitis C Antibody Non-reactive (NonReactive) 03/20/22 23:31 Microbiology: Microbiology 03/20/22 17:09 Peripheral/Venous Blood Culture - Preliminary NO GROWTH AFTER 24 HOURS 03/20/22 17:09 Peripheral/Venous Blood Culture - Preliminary NO GROWTH AFTER 24 HOURS Active Medications - Current Medications Current Medications: Generic Name Dose Route Start Last Admin Trade Name Freq PRN Reason Stop Dose Admin Acetaminophen 650 mg 03/20/22 19:10 Acetaminophen 325 Mg Tab PO Q4H PRN Pain MILD(1-3)/Fever >100.5/PATTERSON Albuterol 2.5 mg 03/20/22 19:10 Albuterol 2.5 Mg/3 Ml Nebu IH Q4HRT PRN Shortness Of Breath Epoetin Raulito-epbx 20,000 unit 03/21/22 11:00 Epoetin Raulito-Epbx 20,000 Unit/1 Ml Vial IV GARETH PRN hemodialysis Hydromorphone HCl 0.5 mg 03/20/22 19:10 Hydromorphone 0.5 Mg/0.5 Ml Inj IV Q13H PRN Pain , Severe (7-10) Sodium Chloride 100 mls @ 999 mls/hr 03/21/22 11:00 Nacl 0.9% IV GARETH PRN Hypotension Ondansetron HCl 4 mg 03/20/22 19:10 Ondansetron 4 Mg/2 Ml Inj IV Q8H PRN Nausea And Vomiting Oxycodone/Acetaminophen 1 tab 03/20/22 19:10 Oxycodone /Acetaminophen 5-325mg Tab PO Q6H PRN Pain, Moderate (4-6) Sodium Chloride 10 ml 03/20/22 22:00 03/21/22 22:03 Sodium Chloride 0.9% 10 Ml Flush Syringe IV 10 ml BID LEONOR Administration Sodium Chloride 10 ml 03/20/22 19:10 Sodium Chloride 0.9% 10 Ml Flush Syringe IV PRN PRN LINE FLUSH Nutrition/Malnutrition Assess - Dietary Evaluation Nutrition/Malnutrition Findings: Nutrition Notes Start: 03/21/22 12:46 Freq: Status: Active Protocol: Document 03/21/22 12:46 DEXTER (Rec: 03/21/22 13:14 DEXTER [id number]) Nutrition Notes Need for Assessment generated from: MD Order,spray crew,MST, Education,Low BMI Initial or Follow up Assessment Current Diagnosis CKD (stage V CKD),Hypertension ,Malnutrition Other Pertinent Diagnosis ESRD+HD, Anemia, R-LE Ischemia /Dry Gangrene, PAD, ... Current Diet Renal Diet (D 03/20). Labs/Tests 03/21: BUN 52, Crea 7.6. Pertinent Medications 03/21: Nutritionally unremarkable. Height 5 ft Weight 40.3 kg [place] Body Weight (kg) 45.45 BMI 17.3 Intake Prior to Admission Poor Weight change and time frame Pt states having, unintentionally, loss between 2 and 13 lb recently. Weight Status Underweight Subjective/Other Information RD consult for Skin risk, risk of malnutrition, Low BMI, and nutrition educatioin assessments. No reports available on Pt's PO intake of meals at the time , will assess at F/U. I will prescribe dietary supplements to compensate for poor or insuficient PO intake of meals and to support for wound healing processes. Pt is on Nasal Cannula, O2 saturation @ 98%, according to Physical Assessment History notes. Pt presents R-Foot stage IV wound and Gangrene as sinificant skin risk factors of concern, according to Physical Assessment History notes and Admission Documents. Pt shows unintentional body weight loss and prolongued poor appetite as significant risk for malnutrition factors, according to Physical Assessment History notes. Pt's Low BMI seems to correspond to a natural body composition, exacerbated by a sudden loss of body weight and possibly chronic malnutrition , as is mentioned in the Physical Assessment History and the Progress notes. Pt needs total assistance with ADL activities, not a candidate for Nutrition Education. Percent of energy/protein needs met: Prescribed Renal Diet provides for energy/protein needs (2, 072 Kcal/77 g) during LOS; additionally, Dietary Supplements will compensate for possible poor or insufficient PO intake of meals and support wound healing processes with 1,275 Kcal and 57 g of protein. Burn Absent Trauma Absent GI Symptoms None Food Allergy No Skin Integrity/Comment R-Foot stage IV wound and Gangrene. 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 Etiology PAD As Evidenced by Signs and Symptoms R-LE Ischemia/stage IV wound/ Dry Gangrene. #1 Nutrition Diagnosis Malnutrition Etiology Possibly ESRD. As Evidenced by Signs and Symptoms Prolongued poor appetite PO intake of meals <50% for more than 5 days, unintentional body weight loss between 2 and 13 lb recently. Is patient on ventilator? No Is Patient Ambulatory and/or Out of Bed No [facility] [phone] Calculation Used for Recommendations [facility] Additional Notes Protein: 1.2-1.5 g/Kg ABW; 48- 60 g/day. Fluids: 1 ml/Kcal, or as per MD. Nutrition Intervention Change Diet Order: Continue Renal Diet. Add Supplement/Snack (indicate name/kcal Start 8 fl oz Nepro w/ /protein ) CARBSTEADY; TID. Provides kCal: 1,275 Provides Protein (gm) 57 Goal #1 Support, through dietary supplementation, wound healing processes during LOS. Goal #2 Compensate, through dietary supplementation, for possible poor or insufficient PO intake of meals during LOS. Goal #3 Adjust the dietary intervention to better serve Pt's needs and clinical conditions during LOS. Follow-Up By: 03/28/22 Additional Comments Continue monitoring food tolerance, %PO intake of meals and ONS, and BM.
--- NOTE | 2022-03-22 10:01 | Progress Note ---
Assessment and Plan 1. End Stage Renal Disease: Patient is a on maintenance hemodialysis, ?MWF schedule. Unable to get any further information. Meds dosage based on GFR. Hemodialysis: 03/22. 2. FEN: Hyponatremia, improved, on HD, monitor. Volume overload, UF with HD, monitor. Monitor lytes. 3. Right lower extremity Ischemia / PAD: Associated cellulitis/dry gangrene. Abx. CTA today. 4. Sepsis: 2/2 R lower extremity cellulitis. Abx. 5. Normocytic Anemia, POA: PRBC as needed. Epogen with HD. 6. Hypotension: BP is better now. Monitor. 7. Dementia. 8. Protein calorie malnutrition. Subjective: Patient was seen and examined at the bedside. Examination: General appearance: well-developed, emaciated, appears stated age, no distress, not cooperative HEENT: ATNC, no icterus Neck: trachea midline Respiratory: clear to auscultation, diminished bibasilar Heart: S1S2, appears regular, no murmur Gastrointestinal: normoactive bowel sounds, NT Integumentary: R 2nd toe necrotic, R arm bruise Neurologic: somnolent, not following any command MS: legs are crossed Ext: no edema Hemodialysis access: R arm AVF Subjective Date of service: 03/22/22 Objective - Vital Signs Vital signs: Vital Signs - 12hr 03/22/22 06:00 Temperature 98.6 F Pulse Rate 93 H Respiratory 20 Rate Blood Pressure 142/64 [Left] O2 Sat by Pulse 96 Oximetry - Lab 03/21/22 05:06 03/21/22 05:06 Most recent lab results Calcium 8.6 mg/dL (8.4-10.2) 03/21/22 05:06 Medications & Allergies - Medications Allergies/Adverse Reactions: Allergies No Known Allergies Allergy (Verified 03/20/22 19:20) Home Medications: Home Medications Medication Instructions Recorded Confirmed Last Taken Type No Known Home Medications [No 03/22/22 03/22/22 Unknown History Reported Home Medications] Active Medications: Generic Name Dose Route Start Last Admin Trade Name Freq PRN Reason Stop Dose Admin Acetaminophen 650 mg 03/20/22 19:10 Acetaminophen 325 Mg Tab PO Q4H PRN Pain MILD(1-3)/Fever >100.5/PATTERSON Albuterol 2.5 mg 03/20/22 19:10 Albuterol 2.5 Mg/3 Ml Nebu IH Q4HRT PRN Shortness Of Breath Epoetin Raulito-epbx 20,000 unit 03/21/22 11:00 Epoetin Raulito-Epbx 20,000 Unit/1 Ml Vial IV GARETH PRN hemodialysis Hydromorphone HCl 0.5 mg 03/20/22 19:10 Hydromorphone 0.5 Mg/0.5 Ml Inj IV Q13H PRN Pain , Severe (7-10) Sodium Chloride 100 mls @ 999 mls/hr 03/21/22 11:00 Nacl 0.9% IV GARETH PRN Hypotension Ondansetron HCl 4 mg 03/20/22 19:10 Ondansetron 4 Mg/2 Ml Inj IV Q8H PRN Nausea And Vomiting Oxycodone/Acetaminophen 1 tab 03/20/22 19:10 Oxycodone /Acetaminophen 5-325mg Tab PO Q6H PRN Pain, Moderate (4-6) Sodium Chloride 10 ml 03/20/22 22:00 03/22/22 09:56 Sodium Chloride 0.9% 10 Ml Flush Syringe IV 10 ml BID LEONOR Administration Sodium Chloride 10 ml 03/20/22 19:10 Sodium Chloride 0.9% 10 Ml Flush Syringe IV PRN PRN LINE FLUSH
--- NOTE | 2022-03-22 15:08 | Cat Scan Report ---
CTA ABDOMEN, PELVIS, AND LOWER EXTREMITIES WITH CONTRAST INDICATION: PVD with gangrene and wound bilaterally. TECHNIQUE: Axial CT images were obtained through the abdomen, pelvis and lower extremities after injection of 10 0 cc Omnipaque 350 IV contrast. 3 plane MIP reconstructions were produced. All CT scans at this [facility] ion are performed using CT dose reduction for ALARA by means of automated exposure control. COMPARISON: Bilateral lower extremity arterial Doppler performed on 03/20/2022. FINDINGS: Motion artifact limits the study. CTA ABDOMEN: Abdominal Aorta: There is moderate generalized nonobstructive atherosclerosis. No other significant a bnormality. Celiac Artery: No significant abnormality. Superior Mesenteric Artery: No significant abnormality. Right Renal Artery: Severely obstructive calcified and noncalcified plaques are seen at the vessel or igin without other significant abnormalities. Left Renal Artery: Severely obstructive calcified and noncalcified plaques are seen along the proxima l third of the vessel as well as short segment near total occlusion along the middle third of the ves channing. No other significant abnormality. Inferior Mesenteric Artery: No significant abnormality. CTA PELVIS: RIGHT: - Common Iliac Artery: There is mild nonobstructive atherosclerosis. No other significant abnormality . - Internal Iliac Artery: There is moderate generalized atherosclerosis with secondary moderate/severe obstruction at the vessel bifurcation. No other significant abnormality. - External Iliac Artery: No significant abnormality. LEFT: - Common Iliac Artery: There is mild nonobstructive atherosclerosis without other significant abnorma lities. - Internal Iliac Artery: There is moderate nonobstructive atherosclerosis without other significant a bnormalities. - External Iliac Artery: No significant abnormality. CTA LOWER EXTREMITIES: RIGHT LOWER EXTREMITY: - Common Femoral Artery: Mild atherosclerosis is seen with secondary mild obstruction along the proxi mal third of the vessel. No other significant abnormality. - Superficial Femoral Artery: Moderate atherosclerosis is seen along the distal half of the vessel wi th secondary moderate/severe obstruction along the distal third of the vessel. No other significant a bnormality. - Profunda Femoral Artery: No significant abnormality. - Popliteal Artery: There is mild nonobstructive atherosclerosis. No other significant abnormality. - Anterior Tibial Artery: Occluded at its origin without distal reconstitution of flow. Severe calcif ication is present throughout the vessel. - Tibioperoneal Trunk: Occluded without distal reconstitution of flow. - Posterior Tibial Artery: Occluded at its origin without distal reconstitution of flow. - Peroneal Artery: Occluded at its origin without distal reconstitution of flow. - Ankle runoff: None. LEFT LOWER EXTREMITY: - Common Femoral Artery: There is mild nonobstructive atherosclerosis. No other significant abnormali ty. - Superficial Femoral Artery: There is moderate atherosclerosis with secondary mild obstruction seen along the middle third of the vessel. No other significant abnormality. - Profunda Femoral Artery: No significant abnormality. - Popliteal Artery: There is mild nonobstructive atherosclerosis without other significant abnormalit ies. - Anterior Tibial Artery: Briefly patent and normal in caliber along the proximal third of its course with subsequent occlusion with distal reconstitution of flow at the ankle, continuing as a patent do rsalis pedis artery. - Tibioperoneal Trunk: There is mild nonobstructive atherosclerosis. No other significant abnormality . - Posterior Tibial Artery: Occluded at its origin without distal reconstitution of flow. - Peroneal Artery: Occluded at its origin without distal reconstitution of flow. - Ankle runoff: One vessel. NONTARGET STRUCTURES: CHEST: A solid spiculated nodule is seen superiorly along the right lower lobe on image 35 of series 2 measuring 1.1 x 0.8 cm. There is a small left pleural effusion with associated atelectasis. The hea rt is mildly enlarged without a significant pericardial effusion. No other significant abnormality. ABDOMEN:There is a large amount of ascites. Noninflamed sigmoid diverticulosis is noted. There is non specific mild/moderate thickening of multiple small bowel loops. Generalized subcutaneous edema is no abi. There is severe bilateral renal atrophy. No other significant abnormality. PELVIS:No significant abnormality. LOWER EXTREMITIES:No significant abnormality. SKELETAL: No acute findings. The bones are demineralized. ADDITIONAL FINDINGS: Multiple collateral vessels are seen along the visualized portions of the upper extremities. IMPRESSION: 1. Limited exam due to motion artifact. 2. Moderate aortoiliac atherosclerosis with secondary moderate/severe obstruction along the right int ernal iliac artery and superior obstruction along the renal arteries. 3. Moderate right superficial femoral atherosclerosis with secondary moderate/severe obstruction dist ally. Severe atherosclerosis is seen along the right lower leg with occlusion of all of the arteries below the knee without distal reconstitution of flow. 4. Mildly obstructive moderate left superficial femoral atherosclerosis with occlusion of the majorit y of the left anterior tibial artery with reconstitution of flow at the ankle. There is occlusion of the left posterior tibial and peroneal arteries at their origins without distal reconstitution of annalise w. 5. Additional findings as above. Signer Name: Freddie Ashby MD Signed: 03/22/2022 3:04 PM Workstation Name: [id number]
--- NOTE | 2022-03-22 17:36 | Electrocardiograph Report ---
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
--- NOTE | 2022-03-23 07:47 | Progress Note ---
Assessment and Plan 1. End Stage Renal Disease: Patient is a on maintenance hemodialysis, ?MWF schedule. Unable to get any further information. Meds dosage based on GFR. Hemodialysis: 03/21. HD today. 2. FEN: Hyponatremia, improved, on HD, monitor. Volume overload, UF with HD, monitor. Monitor lytes. 3. Right lower extremity Ischemia / PAD: Associated cellulitis/dry gangrene. Abx. 4. Sepsis: 2/2 R lower extremity cellulitis. Abx. 5. Normocytic Anemia, POA: PRBC as needed. Epogen with HD. 6. Hypotension: BP is better now. Monitor. 7. Dementia. 8. Protein calorie malnutrition. Subjective: Patient was seen and examined at the bedside. Examination: General appearance: well-developed, emaciated, appears stated age, no distress, not cooperative HEENT: ATNC, no icterus Neck: trachea midline Respiratory: clear to auscultation, diminished bibasilar Heart: S1S2, appears regular, no murmur Gastrointestinal: normoactive bowel sounds, NT Integumentary: R 2nd toe necrotic, R arm bruise Neurologic: somnolent, not following any command MS: legs are crossed Ext: no edema Hemodialysis access: R arm AVF Subjective Date of service: 03/23/22 Objective - Vital Signs Vital signs: Vital Signs - 12hr 03/22/22 03/22/22 21:14 22:00 Temperature 97.6 F Pulse Rate 93 H Respiratory 20 Rate Blood Pressure 160/73 [Left] O2 Sat by Pulse 96 98 Oximetry - Lab 03/23/22 07:09 03/23/22 07:09 Most recent lab results Calcium 8.6 mg/dL (8.4-10.2) 03/21/22 05:06 Medications & Allergies - Medications Allergies/Adverse Reactions: Allergies No Known Allergies Allergy (Verified 03/20/22 19:20) Home Medications: Home Medications Medication Instructions Recorded Confirmed Last Taken Type No Known Home Medications [No 03/22/22 03/22/22 Unknown History Reported Home Medications] Active Medications: Generic Name Dose Route Start Last Admin Trade Name Freq PRN Reason Stop Dose Admin Acetaminophen 650 mg 03/20/22 19:10 Acetaminophen 325 Mg Tab PO Q4H PRN Pain MILD(1-3)/Fever >100.5/PATTERSON Albuterol 2.5 mg 03/20/22 19:10 Albuterol 2.5 Mg/3 Ml Nebu IH Q4HRT PRN Shortness Of Breath Epoetin Raulito-epbx 20,000 unit 03/21/22 11:00 Epoetin Raulito-Epbx 20,000 Unit/1 Ml Vial IV GARETH PRN hemodialysis Hydromorphone HCl 0.5 mg 03/20/22 19:10 Hydromorphone 0.5 Mg/0.5 Ml Inj IV Q13H PRN Pain , Severe (7-10) Sodium Chloride 100 mls @ 999 mls/hr 03/21/22 11:00 Nacl 0.9% IV GARETH PRN Hypotension Ondansetron HCl 4 mg 03/20/22 19:10 Ondansetron 4 Mg/2 Ml Inj IV Q8H PRN Nausea And Vomiting Oxycodone/Acetaminophen 1 tab 03/20/22 19:10 Oxycodone /Acetaminophen 5-325mg Tab PO Q6H PRN Pain, Moderate (4-6) Sodium Chloride 10 ml 03/20/22 22:00 03/22/22 22:27 Sodium Chloride 0.9% 10 Ml Flush Syringe IV 10 ml BID LEONOR Administration Sodium Chloride 10 ml 03/20/22 19:10 Sodium Chloride 0.9% 10 Ml Flush Syringe IV PRN PRN LINE FLUSH
[2022-03-23 08:03] LABS: Calcium 9.7 mg/dL (8.4-10.2)
[2022-03-23 08:10] LABS: Basophils # (Auto) 0.1 K/mm3 (0.0-0.1); Basophils % (Auto) 0.5 % (0.0-1.8); Eosinophils # (Auto) 0.1 K/mm3 (0.0-0.4); Hemoglobin 6.9 gm/dl (10.1-14.3); Lymphocytes % (Auto) 10.3 % (13.4-35.0); Mean Corpuscular HGB Conc 31 % (30-34); Mean Corpuscular Volume 93 fl (79-97); Monocytes # (Auto) 0.8 K/mm3 (0.0-0.8); Monocytes % (Auto) 7.8 % (0.0-7.3); Platelet Count 229 K/mm3 (140-440); Red Blood Count 2.38 M/mm3 (3.65-5.03); Red Cell Distribution Width 19.2 % (13.2-15.2)
--- NOTE | 2022-03-23 09:07 | Progress Note ---
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 On admission, patient was noted to be guarded with diminished cognition and unable to provide history. Patient history provided by son who reported that the. Patient is bedbound and nonambulatory and has a palliative performance score of 30% and requires 6/6 assistance with activities of daily living. Patient has decreased verbalization and is unable to make needs known or follow simple commands. As per son, the patient developed low blood pressure during dialysis today. Prashanth pringle was found to have a systolic blood pressure in the 70s. EMS was notified and upon arrival the patient was found to be in distress and subsequently transported to [facility] for further care and evaluation of the aforementioned symptoms. The patient was seen and evaluated in the emergency department. All lab and imaging studies reviewed. Patient was found to have right lower limb ischemia complicated by dry gangrene, end-stage renal disease, hyponatremia. Patient admitted to medical floor due to increased risk of worsening symptoms and for medical stabilization. Nephrology team consulted in ED. Interventional radiology team consulted in ED. Right ischemic lower extremity Right lower extremity cellulitis/dry gangrene Sepsis. Patient meets criteria given the tachycardia, tachypnea and diagnosis of right lower extremity cellulitis Peripheral vascular disease ESRD on HD Vascular dementia Cerebral atherosclerosis Protein calorie malnutrition 03/21/2022. Continue IV antibiotics. Follow-up blood cultures. Await IR consultation. Continue hemodialysis per nephrology recommendations. Nephrology consultation pending. 03/22/2022. Arterial Doppler reveals bilateral distal crural peripheral vascular disease with abnormal monophasic waveforms in both forelegs. No occlusive disease. Based on her ultrasound, the patient appears to have popliteal disease and distal disease. Plain films essentially negative. Continue empiric IV antibiotics and wound care. Vascular to perform CTA of the abdomen and pelvis with lower extremity runoffs. Patient may require amputations given nonambulatory/bedbound status, contractures. 03/23/2022. CTA revealed moderate aortoiliac atherosclerosis with secondary moderate to severe obstruction along the right internal iliac artery and superior obstruction along the renal arteries. Moderate right superficial femoral atherosclerosis with secondary moderate to severe obstruction distally severe atherosclerosis is seen along the right lower leg with occlusion of all the arteries below the knee without distal reconstitution of flow. Mild ob structive moderate left superficial femoral atherosclerosis with occlusion of the majority of the left anterior tibial artery with reconstitution of flow at the ankle. There is occlusion of the left posterior tibial and peroneal arteries at their origins without distal reconstitution of flow. Await vascular surgery recommendations for revascularization. Continue hemodialysis per nephrology recommendations. Continue local wound care and IV antibiotics. History Interval history: No new issues overnight. Hospitalist Physical - Constitutional Vitals: Temp Pulse Resp BP Pulse Ox 97.6 F 93 H 20 160/73 98 03/22/22 21:14 03/22/22 21:14 03/22/22 21:14 03/22/22 21:14 03/22/22 22:00 General appearance: Present: cachectic - EENT Eyes: Present: PERRL, EOM intact ENT: hearing intact, clear oral mucosa, dentition normal - Neck Neck: Present: supple, normal ROM - Respiratory Respiratory effort: normal Respiratory: bilateral: CTA - Cardiovascular Rhythm: regular Heart Sounds: Present: S1 & S2. Absent: gallop, rub - Extremities Extremities: no ischemia, No edema, Full ROM - Abdominal General gastrointestinal: soft, non-tender, non-distended, normal bowel sounds - Integumentary Integumentary: Present: clear, warm, dry - Neurologic Neurologic: CNII-XII intact, moves all extremities HEART Score - HEART Score Troponin: Troponin T 0.203 ng/mL (0.00-0.029) H* 03/20/22 17:09 Results - Labs CBC & Chem 7: 03/23/22 07:09 03/23/22 07:09 Labs: Laboratory Last Values WBC 9.9 K/mm3 (4.5-11.0) 03/23/22 07:09 RBC 2.38 M/mm3 (3.65-5.03) L 03/23/22 07:09 Hgb 6.9 gm/dl (10.1-14.3) L 03/23/22 07:09 Hct 22.0 % (30.3-42.9) L 03/23/22 07:09 MCV 93 fl (79-97) 03/23/22 07:09 MCH 29 pg (28-32) 03/23/22 07:09 MCHC 31 % (30-34) 03/23/22 07:09 RDW 19.2 % (13.2-15.2) H 03/23/22 07:09 Plt Count 229 K/mm3 (140-440) 03/23/22 07:09 Lymph % (Auto) 10.3 % (13.4-35.0) L 03/23/22 07:09 [place] % (Auto) 7.8 % (0.0-7.3) H 03/23/22 07:09 Eos % (Auto) 1.0 % (0.0-4.3) 03/23/22 07:09 Baso % (Auto) 0.5 % (0.0-1.8) 03/23/22 07:09 Lymph # (Auto) 1.0 K/mm3 (1.2-5.4) L 03/23/22 07:09 [place] # (Auto) 0.8 K/mm3 (0.0-0.8) 03/23/22 07:09 Eos # (Auto) 0.1 K/mm3 (0.0-0.4) 03/23/22 07:09 Baso # (Auto) 0.1 K/mm3 (0.0-0.1) 03/23/22 07:09 Seg Neutrophils % 80.4 % (40.0-70.0) H 03/23/22 07:09 Seg Neutrophils # 7.9 K/mm3 (1.8-7.7) H 03/23/22 07:09 ESR > 140.0 mm/Hr (0-20) 03/20/22 17:09 PT 13.5 Sec. (12.2-14.9) 03/20/22 17:09 INR 0.93 (0.87-1.13) 03/20/22 17:09 Sodium 138 mmol/L (137-145) 03/23/22 07:09 Potassium 4.8 mmol/L (3.6-5.0) 03/23/22 07:09 Chloride 99.1 mmol/L (98-107) 03/23/22 07:09 Carbon Dioxide 27 mmol/L (22-30) 03/23/22 07:09 Anion Gap 17 mmol/L 03/23/22 07:09 BUN 22 mg/dL (7-17) H 03/23/22 07:09 Creatinine 5.5 mg/dL (0.6-1.2) H 03/23/22 07:09 Estimated GFR 9 ml/min 03/23/22 07:09 BUN/Creatinine Ratio 4 % 03/23/22 07:09 Glucose 78 mg/dL (65-100) 03/23/22 07:09 Lactic Acid 1.00 mmol/L (0.7-2.0) 03/20/22 17:09 Calcium 9.7 mg/dL (8.4-10.2) 03/23/22 07:09 Total Bilirubin 0.40 mg/dL (0.1-1.2) 03/20/22 17:09 AST 17 units/L (5-40) 03/20/22 17:09 ALT 9 units/L (7-56) 03/20/22 17:09 Alkaline Phosphatase 88 units/L (35-129) 03/20/22 17:09 Ammonia < 10.0 umol/L (25-60) L 03/20/22 17:09 Total Creatine Kinase 100 units/L (30-135) 03/20/22 17:09 Troponin T 0.203 ng/mL (0.00-0.029) H* 03/20/22 17:09 C-Reactive Protein 7.30 mg/dL (0.00-1.30) H 03/20/22 17:09 Total Protein 5.5 g/dL (6.3-8.2) L 03/20/22 17:09 Albumin 2.6 g/dL (3.9-5) L 03/20/22 17:09 Albumin/Globulin Ratio 0.9 % 03/20/22 17:09 Triglycerides 118 mg/dL (2-149) 03/20/22 17:09 Cholesterol 133 mg/dL (50-199) 03/20/22 17:09 LDL Cholesterol Direct 64 mg/dL (50-130) 03/20/22 17:09 HDL Cholesterol 41 mg/dL (40-59) 03/20/22 17:09 Cholesterol/HDL Ratio 3.24 % 03/20/22 17:09 TSH 3.590 mlU/mL (0.270-4.200) 03/20/22 17:09 Salicylates < 0.3 mg/dL (2.8-20.0) L 03/20/22 17:09 Acetaminophen 5.0 ug/mL (10.0-30.0) L 03/20/22 17:09 Hepatitis A IgM Ab Non-reactive (NonReactive) 03/20/22 23:31 Hep Bs Antigen Non-reactive (Negative) 03/20/22 23:31 Hep B Core IgM Ab Non-reactive (NonReactive) 03/20/22 23:31 Hepatitis C Antibody Non-reactive (NonReactive) 03/20/22 23:31 Microbiology: Microbiology 03/20/22 17:09 Peripheral/Venous Blood Culture - Preliminary NO GROWTH AFTER 48 HOURS 03/20/22 17:09 Peripheral/Venous Blood Culture - Preliminary NO GROWTH AFTER 48 HOURS Active Medications - Current Medications Current Medications: Generic Name Dose Route Start Last Admin Trade Name Freq PRN Reason Stop Dose Admin Acetaminophen 650 mg 03/20/22 19:10 Acetaminophen 325 Mg Tab PO Q4H PRN Pain MILD(1-3)/Fever >100.5/PATTERSON Albuterol 2.5 mg 03/20/22 19:10 Albuterol 2.5 Mg/3 Ml Nebu IH Q4HRT PRN Shortness Of Breath Epoetin Raulito-epbx 20,000 unit 03/21/22 11:00 Epoetin Raulito-Epbx 20,000 Unit/1 Ml Vial IV GARETH PRN hemodialysis Hydromorphone HCl 0.5 mg 03/20/22 19:10 Hydromorphone 0.5 Mg/0.5 Ml Inj IV Q13H PRN Pain , Severe (7-10) Sodium Chloride 100 mls @ 999 mls/hr 03/21/22 11:00 Nacl 0.9% IV GARETH PRN Hypotension Ceftriaxone Sodium 1 gm in 50 mls @ 100 mls/hr 03/23/22 09:00 Rocephin/Ns 1 Gm/50 Ml IV Q24H LEONOR Protocol Ondansetron HCl 4 mg 03/20/22 19:10 Ondansetron 4 Mg/2 Ml Inj IV Q8H PRN Nausea And Vomiting Oxycodone/Acetaminophen 1 tab 03/20/22 19:10 Oxycodone /Acetaminophen 5-325mg Tab PO Q6H PRN Pain, Moderate (4-6) Sodium Chloride 10 ml 03/20/22 22:00 03/22/22 22:27 Sodium Chloride 0.9% 10 Ml Flush Syringe IV 10 ml BID LEONOR Administration Sodium Chloride 10 ml 03/20/22 19:10 Sodium Chloride 0.9% 10 Ml Flush Syringe IV PRN PRN LINE FLUSH Nutrition/Malnutrition Assess - Dietary Evaluation Nutrition/Malnutrition Findings: Nutrition Notes Start: 03/21/22 12:46 Freq: Status: Active Protocol: Document 03/21/22 12:46 DEXTER (Rec: 03/21/22 13:14 DEXTER [id number]) Nutrition Notes Need for Assessment generated from: MD 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 Current Diet Renal Diet (D 03/20). Labs/Tests 03/21: BUN 52, Crea 7.6. Pertinent Medications 03/21: Nutritionally unremarkable. Height 5 ft Weight 40.3 kg Pony Body Weight (kg) 45.45 BMI 17.3 Intake Prior to Admission Poor Weight change and time frame Pt states having, unintentionally, loss between 2 and 13 lb recently. Weight Status Underweight Subjective/Other Information RD consult for Skin risk, risk of malnutrition, Low BMI, and nutrition educatioin assessments. No reports available on Pt's PO intake of meals at the time , will assess at F/U. I will prescribe dietary supplements to compensate for poor or insuficient PO intake of meals and to support for wound healing processes. Pt is on Nasal Cannula, O2 saturation @ 98%, according to Physical Assessment History notes. Pt presents R-Foot stage IV wound and Gangrene as sinificant skin risk factors of concern, according to Physical Assessment History notes and Admission Documents. Pt shows unintentional body weight loss and prolongued poor appetite as significant risk for malnutrition factors, according to Physical Assessment History notes. Pt's Low BMI seems to correspond to a natural body composition, exacerbated by a sudden loss of body weight and possibly chronic malnutrition , as is mentioned in the Physical Assessment History and the Progress notes. Pt needs total assistance with ADL activities, not a candidate for Nutrition Education. Percent of energy/protein needs met: Prescribed Renal Diet provides for energy/protein needs (2, 072 Kcal/77 g) during LOS; additionally, Dietary Supplements will compensate for possible poor or insufficient PO intake of meals and support wound healing processes with 1,275 Kcal and 57 g of protein. Burn Absent Trauma Absent GI Symptoms None Food Allergy No Skin Integrity/Comment R-Foot stage IV wound and Gangrene. Minimum of two criteria Yes Energy Intake (severe) < or equal to 50% Estimated Energy Requirement > or equal to 5 days Interpretation of Weight Loss (severe) >10% in 6 months Fluid Accumulation N/A Reduced Bear Keeper Strength N/A (non-severe) Protein-Calorie Malnutrition Severe #2 Nutrition Diagnosis Increased nutrient needs ( specify in comment below) Comments: Protein to support wound healing processes. Etiology PAD As Evidenced by Signs and Symptoms R-LE Ischemia/stage IV wound/ Dry Gangrene. #1 Nutrition Diagnosis Malnutrition Etiology Possibly ESRD. As Evidenced by Signs and Symptoms Prolongued poor appetite PO intake of meals <50% for more than 5 days, unintentional body weight loss between 2 and 13 lb recently. Is patient on ventilator? No Is Patient Ambulatory and/or Out of Bed No REE-([facility]-confined to bed) [phone] Calculation Used for Recommendations [facility] Additional Notes Protein: 1.2-1.5 g/Kg ABW; 48- 60 g/day. Fluids: 1 ml/Kcal, or as per MD. Nutrition Intervention Change Diet Order: Continue Renal Diet. Add Supplement/Snack (indicate name/kcal Start 8 fl oz Nepro w/ /protein ) CARBSTEADY; TID. Provides kCal: 1,275 Provides Protein (gm) 57 Goal #1 Support, through dietary supplementation, wound healing processes during LOS. Goal #2 Compensate, through dietary supplementation, for possible poor or insufficient PO intake of meals during LOS. Goal #3 Adjust the dietary intervention to better serve Pt's needs and clinical conditions during LOS. Follow-Up By: 03/28/22 Additional Comments Continue monitoring food tolerance, %PO intake of meals and ONS, and BM.
--- NOTE | 2022-03-23 12:14 | Progress Note ---
Assessment and Plan 76-year-old female with bilateral lower extremity contractures, gangrene of the bilateral second digits, gangrene of the right lower ankle. The patient has underlying severe peripheral vascular disease. Given her contractures, and severe dementia, she is not a candidate for revascularization. Options include palliation with Betadine and hospice care versus above-knee amputations. Recommend palliation with Betadine and hospice care. I had a discussion with the patient's son and provided my recommendations. He is in agreement with palliation with Betadine and hospice care. Subjective Date of service: 03/23/22 Interval history: Patient is aggressively demented. Her legs are contracted. She has bilateral second digit gangrene. Her right lower ankle region is partially gangrenous. Objective - Constitutional Vitals: Vital Signs - 12hr 03/23/22 10:00 O2 Sat by Pulse 96 Oximetry General appearance: Present: other (Aggressive and extremely demented) - EENT ENT: other (Difficult to determine) - Neck Neck: supple - Respiratory Respiratory effort: normal Extremities: abnormal (Contracted with gangrene as described before) - Gastrointestinal General gastrointestinal: Present: soft, non-tender - Psychiatric Psychiatric: other (Demented, aggressive) - Labs CBC & Chem 7: 03/23/22 07:09 03/23/22 07:09 Labs: Abnormal lab results 03/23/22 03/23/22 Range/Units 07:09 07:09 RBC 2.38 L (3.65-5.03) M/mm3 Hgb 6.9 L (10.1-14.3) gm/dl Hct 22.0 L (30.3-42.9) % RDW 19.2 H (13.2-15.2) % Lymph % (Auto) 10.3 L (13.4-35.0) % [place] % (Auto) 7.8 H (0.0-7.3) % Lymph # (Auto) 1.0 L (1.2-5.4) K/mm3 Seg Neutrophils % 80.4 H (40.0-70.0) % Seg Neutrophils # 7.9 H (1.8-7.7) K/mm3 BUN 22 H (7-17) mg/dL Creatinine 5.5 H (0.6-1.2) mg/dL Medications & Allergies - Medications Allergies/Adverse Reactions: Allergies No Known Allergies Allergy (Verified 03/20/22 19:20) Home Medications: Home Medications Medication Instructions Recorded Confirmed Last Taken Type No Known Home Medications [No 03/22/22 03/22/22 Unknown History Reported Home Medications] Active Medications: Generic Name Dose Route Start Last Admin Trade Name Freq PRN Reason Stop Dose Admin Acetaminophen 650 mg 03/20/22 19:10 Acetaminophen 325 Mg Tab PO Q4H PRN Pain MILD(1-3)/Fever >100.5/PATTERSON Albuterol 2.5 mg 03/20/22 19:10 Albuterol 2.5 Mg/3 Ml Nebu IH Q4HRT PRN Shortness Of Breath Epoetin Raulito-epbx 20,000 unit 03/21/22 11:00 Epoetin Raulito-Epbx 20,000 Unit/1 Ml Vial IV GARETH PRN hemodialysis Hydromorphone HCl 0.5 mg 03/20/22 19:10 Hydromorphone 0.5 Mg/0.5 Ml Inj IV Q13H PRN Pain , Severe (7-10) Sodium Chloride 100 mls @ 999 mls/hr 03/21/22 11:00 Nacl 0.9% IV GARETH PRN Hypotension Ceftriaxone Sodium 1 gm in 50 mls @ 100 mls/hr 03/23/22 09:00 Rocephin/Ns 1 Gm/50 Ml IV Q24H LEONOR Protocol Ondansetron HCl 4 mg 03/20/22 19:10 Ondansetron 4 Mg/2 Ml Inj IV Q8H PRN Nausea And Vomiting Oxycodone/Acetaminophen 1 tab 03/20/22 19:10 Oxycodone /Acetaminophen 5-325mg Tab PO Q6H PRN Pain, Moderate (4-6) Sodium Chloride 10 ml 03/20/22 22:00 03/22/22 22:27 Sodium Chloride 0.9% 10 Ml Flush Syringe IV 10 ml BID LEONOR Administration Sodium Chloride 10 ml 03/20/22 19:10 Sodium Chloride 0.9% 10 Ml Flush Syringe IV PRN PRN LINE FLUSH HEART Score - HEART Score Troponin: Troponin T 0.203 ng/mL (0.00-0.029) H* 03/20/22 17:09
[2022-03-23] MEDS: cefTRIAXone/NS 1 GM/50 ML 1 GM/50 ML BAG IV SCH (15:10)
[2022-03-23] MEDS: EPOETIN ALFA-EPBX 20,000 UNIT/1 ML VIAL IV PRN (21:32)
--- NOTE | 2022-03-24 10:59 | Progress Note ---
Assessment and Plan 1. End Stage Renal Disease: Patient is a on maintenance hemodialysis, ?MWF schedule. Unable to get any further information. Meds dosage based on GFR. Hemodialysis: 03/21, 03/23. 2. FEN: Hyponatremia, improved, on HD, monitor. Volume overload, UF with HD, monitor. Monitor lytes. 3. Right lower extremity Ischemia / PAD: Associated cellulitis/dry gangrene. Abx. Followed by Vascular. 4. Sepsis: 2/2 R lower extremity cellulitis. Abx. 5. Normocytic Anemia, POA: PRBC as needed. Epogen with HD. 6. Hypotension: BP is better now. Monitor. 7. Dementia. 8. Protein calorie malnutrition. Subjective: Patient was seen and examined at the bedside. Examination: General appearance: well-developed, emaciated, appears stated age, no distress, on mittens HEENT: ATNC, no icterus Neck: trachea midline Respiratory: clear to auscultation, diminished bibasilar Heart: S1S2, appears regular, no murmur Gastrointestinal: normoactive bowel sounds, NT Integumentary: R 2nd toe necrotic Neurologic: lethargic, not following any command MS: multiple contractures noted Ext: no edema Hemodialysis access: R arm AVF Subjective Date of service: 03/24/22 Objective - Vital Signs Vital signs: Vital Signs - 12hr 03/24/22 10:00 O2 Sat by Pulse 96 Oximetry - Lab 03/23/22 07:09 03/24/22 22:30 Most recent lab results Calcium 9.7 mg/dL (8.4-10.2) 03/23/22 07:09 Medications & Allergies - Medications Allergies/Adverse Reactions: Allergies No Known Allergies Allergy (Verified 03/20/22 19:20) Home Medications: Home Medications Medication Instructions Recorded Confirmed Last Taken Type No Known Home Medications [No 03/22/22 03/22/22 Unknown History Reported Home Medications] Active Medications: Generic Name Dose Route Start Last Admin Trade Name Freq PRN Reason Stop Dose Admin Acetaminophen 650 mg 03/20/22 19:10 Acetaminophen 325 Mg Tab PO Q4H PRN Pain MILD(1-3)/Fever >100.5/PATTERSON Albuterol 2.5 mg 03/20/22 19:10 Albuterol 2.5 Mg/3 Ml Nebu IH Q4HRT PRN Shortness Of Breath Epoetin Raulito-epbx 20,000 unit 03/21/22 11:00 03/23/22 21:32 Epoetin Raulito-Epbx 20,000 Unit/1 Ml Vial IV 20,000 unit GARETH PRN Administration hemodialysis Hydromorphone HCl 0.5 mg 03/20/22 19:10 Hydromorphone 0.5 Mg/0.5 Ml Inj IV Q13H PRN Pain , Severe (7-10) Sodium Chloride 100 mls @ 999 mls/hr 03/21/22 11:00 Nacl 0.9% IV GARETH PRN Hypotension Ceftriaxone Sodium 1 gm in 50 mls @ 100 mls/hr 03/23/22 09:00 03/23/22 15:10 Rocephin/Ns 1 Gm/50 Ml IV 100 mls/hr Q24H LEONOR Administration Protocol Ondansetron HCl 4 mg 03/20/22 19:10 Ondansetron 4 Mg/2 Ml Inj IV Q8H PRN Nausea And Vomiting Oxycodone/Acetaminophen 1 tab 03/20/22 19:10 Oxycodone /Acetaminophen 5-325mg Tab PO Q6H PRN Pain, Moderate (4-6) Sodium Chloride 10 ml 03/20/22 22:00 03/23/22 22:53 Sodium Chloride 0.9% 10 Ml Flush Syringe IV 10 ml BID LEONOR Administration Sodium Chloride 10 ml 03/20/22 19:10 Sodium Chloride 0.9% 10 Ml Flush Syringe IV PRN PRN LINE FLUSH
--- NOTE | 2022-03-24 11:10 | Progress Note ---
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 On admission, patient was noted to be guarded with diminished cognition and unable to provide history. Patient history provided by son who reported that the. Patient is bedbound and nonambulatory and has a palliative performance score of 30% and requires 6/6 assistance with activities of daily living. Patient has decreased verbalization and is unable to make needs known or follow simple commands. As per son, the patient developed low blood pressure during dialysis today. Prashanth pringle was found to have a systolic blood pressure in the 70s. EMS was notified and upon arrival the patient was found to be in distress and subsequently transported to [facility] for further care and evaluation of the aforementioned symptoms. The patient was seen and evaluated in the emergency department. All lab and imaging studies reviewed. Patient was found to have right lower limb ischemia complicated by dry gangrene, end-stage renal disease, hyponatremia. Patient admitted to medical floor due to increased risk of worsening symptoms and for medical stabilization. Nephrology team consulted in ED. Interventional radiology team consulted in ED. Right ischemic lower extremity Right lower extremity cellulitis/dry gangrene Sepsis. Patient meets criteria given the tachycardia, tachypnea and diagnosis of right lower extremity cellulitis Peripheral vascular disease ESRD on HD palliation and hospice care Vascular dementia Cerebral atherosclerosis Protein calorie malnutrition 03/21/2022. Continue IV antibiotics. Follow-up blood cultures. Await IR consultation. Continue hemodialysis per nephrology recommendations. Nephrology consultation pending. 03/22/2022. Arterial Doppler reveals bilateral distal crural peripheral vascular disease with abnormal monophasic waveforms in both forelegs. No occlusive disease. Based on her ultrasound, the patient appears to have popliteal disease and distal disease. Plain films essentially negative. Continue empiric IV antibiotics and wound care. Vascular to perform CTA of the abdomen and pelvis with lower extremity runoffs. Patient may require amputations given nonambulatory/bedbound status, contractures. 03/23/2022. CTA revealed moderate aortoiliac atherosclerosis with secondary moderate to severe obstruction along the right internal iliac artery and superior obstruction along the renal arteries. Moderate right superficial femor al atherosclerosis with secondary moderate to severe obstruction distally severe atherosclerosis is seen along the right lower leg with occlusion of all the arteries below the knee without distal reconstitution of flow. Mild obstructive moderate left superficial femoral atherosclerosis with occlusion of the majority of the left anterior tibial artery with reconstitution of flow at the ankle. There is occlusion of the left posterior tibial and peroneal arteries at their origins without distal reconstitution of flow. Await vascular surgery recommendations for revascularization. Continue hemodialysis per nephrology recommendations. Continue local wound care and IV antibiotics. 03/24/2022. Vascular surgery reports that given her contractures and severe dementia that she is not a candidate for revascularization. Options include palliation and hospice care versus above-knee amputation. Dr. Wells discussed with the son who is in agreement with palliation and hospice care. Consult case management for further evaluation History Interval history: No new issues overnight. Hospitalist Physical - Constitutional Vitals: Temp Pulse Resp BP Pulse Ox 98.9 F 107 H 20 157/59 96 03/23/22 20:50 03/23/22 20:50 03/23/22 20:50 03/23/22 20:50 03/24/22 10:00 General appearance: Present: other (Aggressive and extremely demented) - EENT Eyes: Present: PERRL, EOM intact ENT: hearing intact, clear oral mucosa, dentition normal - Neck Neck: Present: supple, normal ROM - Respiratory Respiratory effort: normal Respiratory: bilateral: CTA - Cardiovascular Rhythm: regular Heart Sounds: Present: S1 & S2. Absent: gallop, rub - Extremities Extremities: no ischemia, No edema, Full ROM - Abdominal General gastrointestinal: soft, non-tender, non-distended, normal bowel sounds - Integumentary Integumentary: Present: clear, warm, dry - Neurologic Neurologic: CNII-XII intact, moves all extremities HEART Score - HEART Score Troponin: Troponin T 0.203 ng/mL (0.00-0.029) H* 03/20/22 17:09 Results - Labs CBC & Chem 7: 03/23/22 07:09 03/23/22 07:09 Labs: Laboratory Last Values WBC 9.9 K/mm3 (4.5-11.0) 03/23/22 07:09 RBC 2.38 M/mm3 (3.65-5.03) L 03/23/22 07:09 Hgb 6.9 gm/dl (10.1-14.3) L 03/23/22 07:09 Hct 22.0 % (30.3-42.9) L 03/23/22 07:09 MCV 93 fl (79-97) 03/23/22 07:09 MCH 29 pg (28-32) 03/23/22 07:09 MCHC 31 % (30-34) 03/23/22 07:09 RDW 19.2 % (13.2-15.2) H 03/23/22 07:09 Plt Count 229 K/mm3 (140-440) 03/23/22 07:09 Lymph % (Auto) 10.3 % (13.4-35.0) L 03/23/22 07:09 [place] % (Auto) 7.8 % (0.0-7.3) H 03/23/22 07:09 Eos % (Auto) 1.0 % (0.0-4.3) 03/23/22 07:09 Baso % (Auto) 0.5 % (0.0-1.8) 03/23/22 07:09 Lymph # (Auto) 1.0 K/mm3 (1.2-5.4) L 03/23/22 07:09 [place] # (Auto) 0.8 K/mm3 (0.0-0.8) 03/23/22 07:09 Eos # (Auto) 0.1 K/mm3 (0.0-0.4) 03/23/22 07:09 Baso # (Auto) 0.1 K/mm3 (0.0-0.1) 03/23/22 07:09 Seg Neutrophils % 80.4 % (40.0-70.0) H 03/23/22 07:09 Seg Neutrophils # 7.9 K/mm3 (1.8-7.7) H 03/23/22 07:09 ESR > 140.0 mm/Hr (0-20) 03/20/22 17:09 PT 13.5 Sec. (12.2-14.9) 03/20/22 17:09 INR 0.93 (0.87-1.13) 03/20/22 17:09 Sodium 138 mmol/L (137-145) 03/23/22 07:09 Potassium 4.8 mmol/L (3.6-5.0) 03/23/22 07:09 Chloride 99.1 mmol/L (98-107) 03/23/22 07:09 Carbon Dioxide 27 mmol/L (22-30) 03/23/22 07:09 Anion Gap 17 mmol/L 03/23/22 07:09 BUN 22 mg/dL (7-17) H 03/23/22 07:09 Creatinine 5.5 mg/dL (0.6-1.2) H 03/23/22 07:09 Estimated GFR 9 ml/min 03/23/22 07:09 BUN/Creatinine Ratio 4 % 03/23/22 07:09 Glucose 78 mg/dL (65-100) 03/23/22 07:09 Lactic Acid 1.00 mmol/L (0.7-2.0) 03/20/22 17:09 Calcium 9.7 mg/dL (8.4-10.2) 03/23/22 07:09 Total Bilirubin 0.40 mg/dL (0.1-1.2) 03/20/22 17:09 AST 17 units/L (5-40) 03/20/22 17:09 ALT 9 units/L (7-56) 03/20/22 17:09 Alkaline Phosphatase 88 units/L (35-129) 03/20/22 17:09 Ammonia < 10.0 umol/L (25-60) L 03/20/22 17:09 Total Creatine Kinase 100 units/L (30-135) 03/20/22 17:09 Troponin T 0.203 ng/mL (0.00-0.029) H* 03/20/22 17:09 C-Reactive Protein 7.30 mg/dL (0.00-1.30) H 03/20/22 17:09 Total Protein 5.5 g/dL (6.3-8.2) L 03/20/22 17:09 Albumin 2.6 g/dL (3.9-5) L 03/20/22 17:09 Albumin/Globulin Ratio 0.9 % 03/20/22 17:09 Triglycerides 118 mg/dL (2-149) 03/20/22 17:09 Cholesterol 133 mg/dL (50-199) 03/20/22 17:09 LDL Cholesterol Direct 64 mg/dL (50-130) 03/20/22 17:09 HDL Cholesterol 41 mg/dL (40-59) 03/20/22 17:09 Cholesterol/HDL Ratio 3.24 % 03/20/22 17:09 TSH 3.590 mlU/mL (0.270-4.200) 03/20/22 17:09 Salicylates < 0.3 mg/dL (2.8-20.0) L 03/20/22 17:09 Acetaminophen 5.0 ug/mL (10.0-30.0) L 03/20/22 17:09 Hepatitis A IgM Ab Non-reactive (NonReactive) 03/20/22 23:31 Hep Bs Antigen Non-reactive (Negative) 03/20/22 23:31 Hep B Core IgM Ab Non-reactive (NonReactive) 03/20/22 23:31 Hepatitis C Antibody Non-reactive (NonReactive) 03/20/22 23:31 Microbiology: Microbiology 03/20/22 17:09 Peripheral/Venous Blood Culture - Preliminary NO GROWTH AFTER 72 HOURS 03/20/22 17:09 Peripheral/Venous Blood Culture - Preliminary NO GROWTH AFTER 72 HOURS Owen/IV: Voiding Method Incontinent Active Medications - Current Medications Current Medications: Generic Name Dose Route Start Last Admin Trade Name Freq PRN Reason Stop Dose Admin Acetaminophen 650 mg 03/20/22 19:10 Acetaminophen 325 Mg Tab PO Q4H PRN Pain MILD(1-3)/Fever >100.5/PATTERSON Albuterol 2.5 mg 03/20/22 19:10 Albuterol 2.5 Mg/3 Ml Nebu IH Q4HRT PRN Shortness Of Breath Epoetin Raulito-epbx 20,000 unit 03/21/22 11:00 03/23/22 21:32 Epoetin Raulito-Epbx 20,000 Unit/1 Ml Vial IV 20,000 unit GARETH PRN Administration hemodialysis Hydromorphone HCl 0.5 mg 03/20/22 19:10 Hydromorphone 0.5 Mg/0.5 Ml Inj IV Q13H PRN Pain , Severe (7-10) Sodium Chloride 100 mls @ 999 mls/hr 03/21/22 11:00 Nacl 0.9% IV GARETH PRN Hypotension Ceftriaxone Sodium 1 gm in 50 mls @ 100 mls/hr 03/23/22 09:00 03/23/22 15:10 Rocephin/Ns 1 Gm/50 Ml IV 100 mls/hr Q24H LEONOR Administration Protocol Ondansetron HCl 4 mg 03/20/22 19:10 Ondansetron 4 Mg/2 Ml Inj IV Q8H PRN Nausea And Vomiting Oxycodone/Acetaminophen 1 tab 03/20/22 19:10 Oxycodone /Acetaminophen 5-325mg Tab PO Q6H PRN Pain, Moderate (4-6) Sodium Chloride 10 ml 03/20/22 22:00 03/23/22 22:53 Sodium Chloride 0.9% 10 Ml Flush Syringe IV 10 ml BID LEONOR Administration Sodium Chloride 10 ml 03/20/22 19:10 Sodium Chloride 0.9% 10 Ml Flush Syringe IV PRN PRN LINE FLUSH Nutrition/Malnutrition Assess - Dietary Evaluation Nutrition/Malnutrition Findings: Nutrition Notes Start: 03/21/22 12:46 Freq: Status: Active Protocol: Document 03/21/22 12:46 DEXTER (Rec: 03/21/22 13:14 DEXTER [email or web address]) Nutrition Notes Need for Assessment generated from: MD Order,foreign exchange dealer,MST, Education,Low BMI Initial or Follow up Assessment Current Diagnosis CKD (stage V CKD),Hypertension ,Malnutrition Other Pertinent Diagnosis ESRD+HD, Anemia, R-LE Ischemia /Dry Gangrene, PAD, ... Current Diet Renal Diet (D 03/20). Labs/Tests 03/21: BUN 52, Crea 7.6. Pertinent Medications 03/21: Nutritionally unremarkable. Height 5 ft Weight 40.3 kg [place] Body Weight (kg) 45.45 BMI 17.3 Intake Prior to Admission Poor Weight change and time frame Pt states having, unintentionally, loss between 2 and 13 lb recently. Weight Status Underweight Subjective/Other Information RD consult for Skin risk, risk of malnutrition, Low BMI, and nutrition educatioin assessments. No reports available on Pt's PO intake of meals at the time , will assess at F/U. I will prescribe dietary supplements to compensate for poor or insuficient PO intake of meals and to support for wound healing processes. Pt is on Nasal Cannula, O2 saturation @ 98%, according to Physical Assessment History notes. Pt presents R-Foot stage IV wound and Gangrene as sinificant skin risk factors of concern, according to Physical Assessment History notes and Admission Documents. Pt shows unintentional body weight loss and prolongued poor appetite as significant risk for malnutrition factors, according to Physical Assessment History notes. Pt's Low BMI seems to correspond to a natural body composition, exacerbated by a sudden loss of body weight and possibly chronic malnutrition , as is mentioned in the Physical Assessment History and the Progress notes. Pt needs total assistance with ADL activities, not a candidate for Nutrition Education. Percent of energy/protein needs met: Prescribed Renal Diet provides for energy/protein needs (2, 072 Kcal/77 g) during LOS; additionally, Dietary Supplements will compensate for possible poor or insufficient PO intake of meals and support wound healing processes with 1,275 Kcal and 57 g of protein. Burn Absent Trauma Absent GI Symptoms None Food Allergy No Skin Integrity/Comment R-Foot stage IV wound and Gangrene. 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 Etiology PAD As Evidenced by Signs and Symptoms R-LE Ischemia/stage IV wound/ Dry Gangrene. #1 Nutrition Diagnosis Malnutrition Etiology Possibly ESRD. As Evidenced by Signs and Symptoms Prolongued poor appetite PO intake of meals <50% for more than 5 days, unintentional body weight loss between 2 and 13 lb recently. Is patient on ventilator? No Is Patient Ambulatory and/or Out of Bed No REE-([facility]-confined to bed) [phone] Calculation Used for Recommendations [facility] Additional Notes Protein: 1.2-1.5 g/Kg ABW; 48- 60 g/day. Fluids: 1 ml/Kcal, or as per MD. Nutrition Intervention Change Diet Order: Continue Renal Diet. Add Supplement/Snack (indicate name/kcal Start 8 fl oz Nepro w/ /protein ) CARBSTEADY; TID. Provides kCal: 1,275 Provides Protein (gm) 57 Goal #1 Support, through dietary supplementation, wound healing processes during LOS. Goal #2 Compensate, through dietary supplementation, for possible poor or insufficient PO intake of meals during LOS. Goal #3 Adjust the dietary intervention to better serve Pt's needs and clinical conditions during LOS. Follow-Up By: 03/28/22 Additional Comments Continue monitoring food tolerance, %PO intake of meals and ONS, and BM.
[2022-03-24] MEDS: cefTRIAXone/NS 1 GM/50 ML 1 GM/50 ML BAG IV SCH (12:07)
[2022-03-24] MEDS ORDERED: DEXTROSE 50% IN WATER (25GM) 50 ML SYRINGE IV PRN (22:25)
--- NOTE | 2022-03-25 09:56 | Progress Note ---
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 On admission, patient was noted to be guarded with diminished cognition and unable to provide history. Patient history provided by son who reported that the. Patient is bedbound and nonambulatory and has a palliative performance score of 30% and requires 6/6 assistance with activities of daily living. Patient has decreased verbalization and is unable to make needs known or follow simple commands. As per son, the patient developed low blood pressure during dialysis today. Prashanth pringle was found to have a systolic blood pressure in the 70s. EMS was notified and upon arrival the patient was found to be in distress and subsequently transported to [facility] for further care and evaluation of the aforementioned symptoms. The patient was seen and evaluated in the emergency department. All lab and imaging studies reviewed. Patient was found to have right lower limb ischemia complicated by dry gangrene, end-stage renal disease, hyponatremia. Patient admitted to medical floor due to increased risk of worsening symptoms and for medical stabilization. Nephrology team consulted in ED. Interventional radiology team consulted in ED. Right ischemic lower extremity Right lower extremity cellulitis/dry gangrene Sepsis. Patient meets criteria given the tachycardia, tachypnea and diagnosis of right lower extremity cellulitis Peripheral vascular disease ESRD on HD palliation and hospice care Vascular dementia Cerebral atherosclerosis Protein calorie malnutrition 03/21/2022. Continue IV antibiotics. Follow-up blood cultures. Await IR consultation. Continue hemodialysis per nephrology recommendations. Nephrology consultation pending. 03/22/2022. Arterial Doppler reveals bilateral distal crural peripheral vascular disease with abnormal monophasic waveforms in both forelegs. No occlusive disease. Based on her ultrasound, the patient appears to have popliteal disease and distal disease. Plain films essentially negative. Continue empiric IV antibiotics and wound care. Vascular to perform CTA of the abdomen and pelvis with lower extremity runoffs. Patient may require amputations given nonambulatory/bedbound status, contractures. 03/23/2022. CTA revealed moderate aortoiliac atherosclerosis with secondary moderate to severe obstruction along the right internal iliac artery and superior obstruction along the renal arteries. Moderate right superficial femor al atherosclerosis with secondary moderate to severe obstruction distally severe atherosclerosis is seen along the right lower leg with occlusion of all the arteries below the knee without distal reconstitution of flow. Mild obstructive moderate left superficial femoral atherosclerosis with occlusion of the majority of the left anterior tibial artery with reconstitution of flow at the ankle. There is occlusion of the left posterior tibial and peroneal arteries at their origins without distal reconstitution of flow. Await vascular surgery recommendations for revascularization. Continue hemodialysis per nephrology recommendations. Continue local wound care and IV antibiotics. 03/24/2022. Vascular surgery reports that given her contractures and severe dementia that she is not a candidate for revascularization. Options include palliation and hospice care versus above-knee amputation. Dr. Wells discussed with the son who is in agreement with palliation and hospice care. Consult case management for further evaluation 03/25/2022. Awaiting hospice placement. Continue supportive care. Follow-up H&H and transfuse for hemoglobin less than 7. History Interval history: No new issues overnight. Hospitalist Physical - Constitutional Vitals: Temp Pulse Resp BP Pulse Ox 98.8 F 87 17 146/55 98 03/25/22 06:17 03/25/22 06:17 03/25/22 06:17 03/25/22 06:17 03/25/22 06:17 General appearance: Present: other (Aggressive and extremely demented) - EENT Eyes: Present: PERRL, EOM intact ENT: hearing intact, clear oral mucosa, dentition normal - Neck Neck: Present: supple, normal ROM - Respiratory Respiratory effort: normal Respiratory: bilateral: CTA - Cardiovascular Rhythm: regular Heart Sounds: Present: S1 & S2. Absent: gallop, rub - Extremities Extremities: no ischemia, No edema, Full ROM - Abdominal General gastrointestinal: soft, non-tender, non-distended, normal bowel sounds - Integumentary Integumentary: Present: clear, warm, dry - Neurologic Neurologic: CNII-XII intact, moves all extremities HEART Score - HEART Score Troponin: Troponin T 0.203 ng/mL (0.00-0.029) H* 03/20/22 17:09 Results - Labs CBC & Chem 7: 03/23/22 07:09 03/24/22 22:30 Labs: Laboratory Last Values WBC 9.9 K/mm3 (4.5-11.0) 03/23/22 07:09 RBC 2.38 M/mm3 (3.65-5.03) L 03/23/22 07:09 Hgb 6.9 gm/dl (10.1-14.3) L 03/23/22 07:09 Hct 22.0 % (30.3-42.9) L 03/23/22 07:09 MCV 93 fl (79-97) 03/23/22 07:09 MCH 29 pg (28-32) 03/23/22 07:09 MCHC 31 % (30-34) 03/23/22 07:09 RDW 19.2 % (13.2-15.2) H 03/23/22 07:09 Plt Count 229 K/mm3 (140-440) 03/23/22 07:09 Lymph % (Auto) 10.3 % (13.4-35.0) L 03/23/22 07:09 Gallia % (Auto) 7.8 % (0.0-7.3) H 03/23/22 07:09 Eos % (Auto) 1.0 % (0.0-4.3) 03/23/22 07:09 Baso % (Auto) 0.5 % (0.0-1.8) 03/23/22 07:09 Lymph # (Auto) 1.0 K/mm3 (1.2-5.4) L 03/23/22 07:09 Gallia # (Auto) 0.8 K/mm3 (0.0-0.8) 03/23/22 07:09 Eos # (Auto) 0.1 K/mm3 (0.0-0.4) 03/23/22 07:09 Baso # (Auto) 0.1 K/mm3 (0.0-0.1) 03/23/22 07:09 Seg Neutrophils % 80.4 % (40.0-70.0) H 03/23/22 07:09 Seg Neutrophils # 7.9 K/mm3 (1.8-7.7) H 03/23/22 07:09 ESR > 140.0 mm/Hr (0-20) 03/20/22 17:09 PT 13.5 Sec. (12.2-14.9) 03/20/22 17:09 INR 0.93 (0.87-1.13) 03/20/22 17:09 Sodium 138 mmol/L (137-145) 03/23/22 07:09 Potassium 4.8 mmol/L (3.6-5.0) 03/23/22 07:09 Chloride 99.1 mmol/L (98-107) 03/23/22 07:09 Carbon Dioxide 27 mmol/L (22-30) 03/23/22 07:09 Anion Gap 17 mmol/L 03/23/22 07:09 BUN 22 mg/dL (7-17) H 03/23/22 07:09 Creatinine 5.5 mg/dL (0.6-1.2) H 03/23/22 07:09 Estimated GFR 9 ml/min 03/23/22 07:09 BUN/Creatinine Ratio 4 % 03/23/22 07:09 Glucose 87 mg/dL (65-100) 03/24/22 22:30 POC Glucose 79 mg/dL (70-105) 03/25/22 08:11 Lactic Acid 1.00 mmol/L (0.7-2.0) 03/20/22 17:09 Calcium 9.7 mg/dL (8.4-10.2) 03/23/22 07:09 Total Bilirubin 0.40 mg/dL (0.1-1.2) 03/20/22 17:09 AST 17 units/L (5-40) 03/20/22 17:09 ALT 9 units/L (7-56) 03/20/22 17:09 Alkaline Phosphatase 88 units/L (35-129) 03/20/22 17:09 Ammonia < 10.0 umol/L (25-60) L 03/20/22 17:09 Total Creatine Kinase 100 units/L (30-135) 03/20/22 17:09 Troponin T 0.203 ng/mL (0.00-0.029) H* 03/20/22 17:09 C-Reactive Protein 7.30 mg/dL (0.00-1.30) H 03/20/22 17:09 Total Protein 5.5 g/dL (6.3-8.2) L 03/20/22 17:09 Albumin 2.6 g/dL (3.9-5) L 03/20/22 17:09 Albumin/Globulin Ratio 0.9 % 03/20/22 17:09 Triglycerides 118 mg/dL (2-149) 03/20/22 17:09 Cholesterol 133 mg/dL (50-199) 03/20/22 17:09 LDL Cholesterol Direct 64 mg/dL (50-130) 03/20/22 17:09 HDL Cholesterol 41 mg/dL (40-59) 03/20/22 17:09 Cholesterol/HDL Ratio 3.24 % 03/20/22 17:09 TSH 3.590 mlU/mL (0.270-4.200) 03/20/22 17:09 Salicylates < 0.3 mg/dL (2.8-20.0) L 03/20/22 17:09 Acetaminophen 5.0 ug/mL (10.0-30.0) L 03/20/22 17:09 Hepatitis A IgM Ab Non-reactive (NonReactive) 03/20/22 23:31 Hep Bs Antigen Non-reactive (Negative) 03/20/22 23:31 Hep B Core IgM Ab Non-reactive (NonReactive) 03/20/22 23:31 Hepatitis C Antibody Non-reactive (NonReactive) 03/20/22 23:31 Microbiology: Microbiology 03/20/22 17:09 Peripheral/Venous Blood Culture - Preliminary NO GROWTH AFTER 4 DAYS 03/20/22 17:09 Peripheral/Venous Blood Culture - Preliminary NO GROWTH AFTER 4 DAYS Owen/IV: Voiding Method Diaper Active Medications - Current Medications Current Medications: Generic Name Dose Route Start Last Admin Trade Name Freq PRN Reason Stop Dose Admin Acetaminophen 650 mg 03/20/22 19:10 Acetaminophen 325 Mg Tab PO Q4H PRN Pain MILD(1-3)/Fever >100.5/PATTERSON Albuterol 2.5 mg 03/20/22 19:10 Albuterol 2.5 Mg/3 Ml Nebu IH Q4HRT PRN Shortness Of Breath Dextrose 0 ml 03/24/22 22:25 03/24/22 22:58 Dextrose 50% In Water (25gm) 50 Ml Syringe IV 50 ml Q30MIN PRN Administration Hypoglycemia Protocol Epoetin Raulito-epbx 20,000 unit 03/21/22 11:00 03/23/22 21:32 Epoetin Raulito-Epbx 20,000 Unit/1 Ml Vial IV 20,000 unit GARETH PRN Administration hemodialysis Hydromorphone HCl 0.5 mg 03/20/22 19:10 Hydromorphone 0.5 Mg/0.5 Ml Inj IV Q13H PRN Pain , Severe (7-10) Sodium Chloride 100 mls @ 999 mls/hr 03/21/22 11:00 Nacl 0.9% IV GARETH PRN Hypotension Ceftriaxone Sodium 1 gm in 50 mls @ 100 mls/hr 03/23/22 09:00 03/24/22 12:07 Rocephin/Ns 1 Gm/50 Ml IV 100 mls/hr Q24H LEONOR Administration Protocol Ondansetron HCl 4 mg 03/20/22 19:10 Ondansetron 4 Mg/2 Ml Inj IV Q8H PRN Nausea And Vomiting Oxycodone/Acetaminophen 1 tab 03/20/22 19:10 Oxycodone /Acetaminophen 5-325mg Tab PO Q6H PRN Pain, Moderate (4-6) Sodium Chloride 10 ml 03/20/22 22:00 03/24/22 23:01 Sodium Chloride 0.9% 10 Ml Flush Syringe IV 10 ml BID LEONOR Administration Sodium Chloride 10 ml 03/20/22 19:10 Sodium Chloride 0.9% 10 Ml Flush Syringe IV PRN PRN LINE FLUSH Nutrition/Malnutrition Assess - Dietary Evaluation Nutrition/Malnutrition Findings: Nutrition Notes Start: 03/21/22 12:46 Freq: Status: Active Protocol: Document 03/21/22 12:46 DEXTER (Rec: 03/21/22 13:14 DEXTER [id number]) Nutrition Notes Need for Assessment generated from: MD 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 Current Diet Renal Diet (D 03/20). Labs/Tests 03/21: BUN 52, Crea 7.6. Pertinent Medications 03/21: Nutritionally unremarkable. Height 5 ft Weight 40.3 kg [place] Body Weight (kg) 45.45 BMI 17.3 Intake Prior to Admission Poor Weight change and time frame Pt states having, unintentionally, loss between 2 and 13 lb recently. Weight Status Underweight Subjective/Other Information RD consult for Skin risk, risk of malnutrition, Low BMI, and nutrition educatioin assessments. No reports available on Pt's PO intake of meals at the time , will assess at F/U. I will prescribe dietary supplements to compensate for poor or insuficient PO intake of meals and to support for wound healing processes. Pt is on Nasal Cannula, O2 saturation @ 98%, according to Physical Assessment History notes. Pt presents R-Foot stage IV wound and Gangrene as sinificant skin risk factors of concern, according to Physical Assessment History notes and Admission Documents. Pt shows unintentional body weight loss and prolongued poor appetite as significant risk for malnutrition factors, according to Physical Assessment History notes. Pt's Low BMI seems to correspond to a natural body composition, exacerbated by a sudden loss of body weight and possibly chronic malnutrition , as is mentioned in the Physical Assessment History and the Progress notes. Pt needs total assistance with ADL activities, not a candidate for Nutrition Education. Percent of energy/protein needs met: Prescribed Renal Diet provides for energy/protein needs (2, 072 Kcal/77 g) during LOS; additionally, Dietary Supplements will compensate for possible poor or insufficient PO intake of meals and support wound healing processes with 1,275 Kcal and 57 g of protein. Burn Absent Trauma Absent GI Symptoms None Food Allergy No Skin Integrity/Comment R-Foot stage IV wound and Gangrene. Minimum of two criteria Yes Energy Intake (severe) < or equal to 50% Estimated Energy Requirement > or equal to 5 days Interpretation of Weight Loss (severe) >10% in 6 months Fluid Accumulation N/A Reduced Box Builder Strength N/A (non-severe) Protein-Calorie Malnutrition Severe #2 Nutrition Diagnosis Increased nutrient needs ( specify in comment below) Comments: Protein to support wound healing processes. Etiology PAD As Evidenced by Signs and Symptoms R-LE Ischemia/stage IV wound/ Dry Gangrene. #1 Nutrition Diagnosis Malnutrition Etiology Possibly ESRD. As Evidenced by Signs and Symptoms Prolongued poor appetite PO intake of meals <50% for more than 5 days, unintentional body weight loss between 2 and 13 lb recently. Is patient on ventilator? No Is Patient Ambulatory and/or Out of Bed No REE-([facility]-confined to bed) [phone] Calculation Used for Recommendations [facility] Additional Notes Protein: 1.2-1.5 g/Kg ABW; 48- 60 g/day. Fluids: 1 ml/Kcal, or as per MD. Nutrition Intervention Change Diet Order: Continue Renal Diet. Add Supplement/Snack (indicate name/kcal Start 8 fl oz Nepro w/ /protein ) CARBSTEADY; TID. Provides kCal: 1,275 Provides Protein (gm) 57 Goal #1 Support, through dietary supplementation, wound healing processes during LOS. Goal #2 Compensate, through dietary supplementation, for possible poor or insufficient PO intake of meals during LOS. Goal #3 Adjust the dietary intervention to better serve Pt's needs and clinical conditions during LOS. Follow-Up By: 03/28/22 Additional Comments Continue monitoring food tolerance, %PO intake of meals and ONS, and BM.
[2022-03-25] MEDS: cefTRIAXone/NS 1 GM/50 ML 1 GM/50 ML BAG IV SCH (11:05)
[2022-03-25] MEDS ORDERED: SODIUM CHLORIDE 0.9% 100 ML IV PRN (11:09)
--- NOTE | 2022-03-25 11:09 | Progress Note ---
Assessment and Plan ESRD - HD in am Lytes - F/u labs Vitals - Stable, continue f/u off BP meds Anemia - Consider PRBC transfusion. Continue Epogen on HD Subjective Date of service: 03/25/22 Interval history: No complaint Objective - Vital Signs Vital signs: Vital Signs - 12hr 03/25/22 03/25/22 00:03 06:17 Temperature 98.5 F 98.8 F Pulse Rate 100 H 87 Respiratory 19 17 Rate Blood Pressure 140/59 146/55 [Left] O2 Sat by Pulse 98 98 Oximetry - General Appearance General appearance: other (Awake & responsive) EENT: PERRL Neck: no JVD Respiratory: Present: Other (Good air entry) Cardiology: regular, S1S2 Gastrointestinal: other (Soft) Neurologic: disoriented - Lab 03/23/22 07:09 03/24/22 22:30 Most recent lab results Calcium 9.7 mg/dL (8.4-10.2) 03/23/22 07:09 Medications & Allergies - Medications Allergies/Adverse Reactions: Allergies No Known Allergies Allergy (Verified 03/20/22 19:20) Home Medications: Home Medications Medication Instructions Recorded Confirmed Last Taken Type No Known Home Medications [No 03/22/22 03/22/22 Unknown History Reported Home Medications] Active Medications: Generic Name Dose Route Start Last Admin Trade Name Christianq PRN Reason Stop Dose Admin Acetaminophen 650 mg 03/20/22 19:10 Acetaminophen 325 Mg Tab PO Q4H PRN Pain MILD(1-3)/Fever >100.5/PATTERSON Albuterol 2.5 mg 03/20/22 19:10 Albuterol 2.5 Mg/3 Ml Nebu IH Q4HRT PRN Shortness Of Breath Dextrose 0 ml 03/24/22 22:25 03/24/22 22:58 Dextrose 50% In Water (25gm) 50 Ml Syringe IV 50 ml Q30MIN PRN Administration Hypoglycemia Protocol Epoetin Raulito-epbx 20,000 unit 03/21/22 11:00 03/23/22 21:32 Epoetin Raulito-Epbx 20,000 Unit/1 Ml Vial IV 20,000 unit GARETH PRN Administration hemodialysis Hydromorphone HCl 0.5 mg 03/20/22 19:10 Hydromorphone 0.5 Mg/0.5 Ml Inj IV Q13H PRN Pain , Severe (7-10) Sodium Chloride 100 mls @ 999 mls/hr 03/21/22 11:00 Nacl 0.9% IV GARETH PRN Hypotension Ceftriaxone Sodium 1 gm in 50 mls @ 100 mls/hr 03/23/22 09:00 03/24/22 12:07 Rocephin/Ns 1 Gm/50 Ml IV 100 mls/hr Q24H LEONOR Administration Protocol Ondansetron HCl 4 mg 03/20/22 19:10 Ondansetron 4 Mg/2 Ml Inj IV Q8H PRN Nausea And Vomiting Oxycodone/Acetaminophen 1 tab 03/20/22 19:10 Oxycodone /Acetaminophen 5-325mg Tab PO Q6H PRN Pain, Moderate (4-6) Sodium Chloride 10 ml 03/20/22 22:00 03/24/22 23:01 Sodium Chloride 0.9% 10 Ml Flush Syringe IV 10 ml BID LEONOR Administration Sodium Chloride 10 ml 03/20/22 19:10 Sodium Chloride 0.9% 10 Ml Flush Syringe IV PRN PRN LINE FLUSH
[2022-03-26 01:11] LABS: Basophils # (Auto) 0.2 K/mm3 (0.0-0.1); Basophils % (Auto) 0.9 % (0.0-1.8); Eosinophils # (Auto) 0.1 K/mm3 (0.0-0.4); Eosinophils % (Auto) 0.5 % (0.0-4.3); Lymphocytes # (Auto) 1.7 K/mm3 (1.2-5.4); Lymphocytes % (Auto) 8.9 % (13.4-35.0); Mean Corpuscular HGB Conc 31 % (30-34); Mean Corpuscular Volume 95 fl (79-97); Monocytes % (Auto) 5.5 % (0.0-7.3); Platelet Count 200 K/mm3 (140-440); Red Blood Count 1.98 M/mm3 (3.65-5.03); Red Cell Distribution Width 19.9 % (13.2-15.2)
[2022-03-26 01:14] LABS: Hematocrit 18.8 % (30.3-42.9); Hemoglobin 5.8 gm/dl (10.1-14.3)
[2022-03-26 01:31] LABS: Calcium 9.6 mg/dL (8.4-10.2)
[2022-03-26] MEDS ORDERED: SODIUM CHLORIDE 0.9% 500 ML 500 ML IV ONE ×2 (02:44→18:31)
--- NOTE | 2022-03-26 08:11 | Progress Note ---
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 On admission, patient was noted to be guarded with diminished cognition and unable to provide history. Patient history provided by son who reported that the. Patient is bedbound and nonambulatory and has a palliative performance score of 30% and requires 6/6 assistance with activities of daily living. Patient has decreased verbalization and is unable to make needs known or follow simple commands. As per son, the patient developed low blood pressure during dialysis today. Patient was found to have a systolic blood pressure in the 70s. EMS was notified and upon arrival the patient was found to be in distress and subsequently transported to [facility] for further care and evaluation of the aforementioned symptoms. The patient was seen and evaluated in the emergency department. All lab and imaging studies reviewed. Patient was found to have right lower limb ischemia complicated by dry gangrene, end-stage renal disease, hyponatremia. Patient admitted to medical floor due to increased risk of worsening symptoms and for medical stabilization. Nephrology team consulted in ED. Interventional radiology team consulted in ED. Right ischemic lower extremity Right lower extremity cellulitis/dry gangrene Sepsis. Patient meets criteria given the tachycardia, tachypnea and diagnosis of right lower extremity cellulitis Peripheral vascular disease ESRD on HD palliation and hospice care Vascular dementia Cerebral atherosclerosis Protein calorie malnutrition 03/21/2022. Continue IV antibiotics. Follow-up blood cultures. Await IR consultation. Continue hemodialysis per nephrology recommendations. Nephrology consultation pending. 03/22/2022. Arterial Doppler reveals bilateral distal crural peripheral vascular disease with abnormal monophasic waveforms in both forelegs. No occlusive disease. Based on her ultrasound, the patient appears to have popliteal disease and distal disease. Plain films essentially negative. Continue empiric IV antibiotics and wound c are. Vascular to perform CTA of the abdomen and pelvis with lower extremity runoffs. Patient may require amputations given nonambulatory/bedbound status, contractures. 03/23/2022. CTA revealed moderate aortoiliac atherosclerosis with secondary moderate to severe obstruction along the right internal iliac artery and superior obstruction along the renal arteries. Moderate right superficial femoral atherosclerosis with secondary moderate to severe obstruction distally severe atherosclerosis is seen along the right lower leg with occlusion of all the arteries below the knee without distal reconstitution of flow. Mild obstructive moderate left superficial femoral atherosclerosis with occlusion of the majority of the left anterior tibial artery with reconstitution of flow at the ankle. There is occlusion of the left posterior tibial and peroneal arteries at their origins without distal reconstitution of flow. Await vascular surgery recommendations for revascularization. Continue hemodialysis per nephrology recommendations. Continue local wound care and IV antibiotics. 03/24/2022. Vascular surgery reports that given her contractures and severe dementia that she is not a candidate for revascularization. Options include palliation and hospice care versus above-knee amputation. Dr. Wells discussed with the son who is in agreement with palliation and hospice care. Consult case management for further evaluation 03/25/2022. Awaiting hospice placement. Continue supportive care. Follow-up H&H and transfuse for hemoglobin less than 7. 03/26/2022; patient has severe anemia hemoglobin 5.2, transfuse 2 unit PRBC stat, DC planning possible hospice placement History Interval history: I have seen and examined the patient at the bedside Patient's chart and medications reviewed Patient is critically ill, emaciated, cachectic In mild distress, severe anemia Requiring blood transfusion Vital signs noted Hospitalist Physical - Constitutional Vitals: Temp Pulse Resp BP Pulse Ox 97.9 F 99 H 16 165/81 71 L 03/26/22 04:22 03/26/22 04:22 03/26/22 04:22 03/26/22 04:22 03/26/22 04:22 General appearance: Present: severe distress, cachectic, disheveled, other (Aggressive and extremely demented) - EENT Eyes: Present: PERRL, EOM intact - Neck Neck: Present: supple, normal ROM - Respiratory Respiratory effort: normal Respiratory: bilateral: diminished, negative: rales, rhonchi, wheezing - Cardiovascular Rhythm: regular Heart Sounds: Present: S1 & S2 - Extremities Extremities: abnormal (Gangrene right lower extremity) - Abdominal General gastrointestinal: soft, non-tender, non-distended, normal bowel sounds - Integumentary Integumentary: Present: clear, warm - Psychiatric Psychiatric: other - Neurologic Neurologic: moves all extremities HEART Score - HEART Score Troponin: Troponin T 0.203 ng/mL (0.00-0.029) H* 03/20/22 17:09 Results - Labs CBC & Chem 7: 03/26/22 08:24 03/26/22 08:24 Labs: Laboratory Last Values WBC 18.9 K/mm3 (4.5-11.0) H 03/26/22 00:23 RBC 1.98 M/mm3 (3.65-5.03) L 03/26/22 00:23 Hgb 5.8 gm/dl (10.1-14.3) L* 03/26/22 00:23 Hct 18.8 % (30.3-42.9) L* 03/26/22 00:23 MCV 95 fl (79-97) 03/26/22 00:23 MCH 29 pg (28-32) 03/26/22 00:23 MCHC 31 % (30-34) 03/26/22 00:23 RDW 19.9 % (13.2-15.2) H 03/26/22 00:23 Plt Count 200 K/mm3 (140-440) 03/26/22 00:23 Lymph % (Auto) 8.9 % (13.4-35.0) L 03/26/22 00:23 [place] % (Auto) 5.5 % (0.0-7.3) 03/26/22 00:23 Eos % (Auto) 0.5 % (0.0-4.3) 03/26/22 00:23 Baso % (Auto) 0.9 % (0.0-1.8) 03/26/22 00:23 Lymph # (Auto) 1.7 K/mm3 (1.2-5.4) 03/26/22 00:23 [place] # (Auto) 1.0 K/mm3 (0.0-0.8) H 03/26/22 00:23 Eos # (Auto) 0.1 K/mm3 (0.0-0.4) 03/26/22 00:23 Baso # (Auto) 0.2 K/mm3 (0.0-0.1) H 03/26/22 00:23 Seg Neutrophils % 84.2 % (40.0-70.0) H 03/26/22 00:23 Seg Neutrophils # 15.9 K/mm3 (1.8-7.7) H 03/26/22 00:23 ESR > 140.0 mm/Hr (0-20) 03/20/22 17:09 PT 13.5 Sec. (12.2-14.9) 03/20/22 17:09 INR 0.93 (0.87-1.13) 03/20/22 17:09 Sodium 145 mmol/L (137-145) D 03/26/22 00:23 Potassium 4.1 mmol/L (3.6-5.0) 03/26/22 00:23 Chloride 104.1 mmol/L (98-107) 03/26/22 00:23 Carbon Dioxide 27 mmol/L (22-30) 03/26/22 00:23 Anion Gap 18 mmol/L 03/26/22 00:23 BUN 26 mg/dL (7-17) H 03/26/22 00:23 Creatinine 6.2 mg/dL (0.6-1.2) H 03/26/22 00:23 Estimated GFR 8 ml/min 03/26/22 00:23 BUN/Creatinine Ratio 4 % 03/26/22 00:23 Glucose 89 mg/dL (65-100) 03/26/22 00:23 POC Glucose 78 mg/dL (70-105) 03/26/22 07:25 Lactic Acid 1.00 mmol/L (0.7-2.0) 03/20/22 17:09 Calcium 9.6 mg/dL (8.4-10.2) 03/26/22 00:23 Total Bilirubin 0.40 mg/dL (0.1-1.2) 03/20/22 17:09 AST 17 units/L (5-40) 03/20/22 17:09 ALT 9 units/L (7-56) 03/20/22 17:09 Alkaline Phosphatase 88 units/L (35-129) 03/20/22 17:09 Ammonia < 10.0 umol/L (25-60) L 03/20/22 17:09 Total Creatine Kinase 100 units/L (30-135) 03/20/22 17:09 Troponin T 0.203 ng/mL (0.00-0.029) H* 03/20/22 17:09 C-Reactive Protein 7.30 mg/dL (0.00-1.30) H 03/20/22 17:09 Total Protein 5.5 g/dL (6.3-8.2) L 03/20/22 17:09 Albumin 2.6 g/dL (3.9-5) L 03/20/22 17:09 Albumin/Globulin Ratio 0.9 % 03/20/22 17:09 Triglycerides 118 mg/dL (2-149) 03/20/22 17:09 Cholesterol 133 mg/dL (50-199) 03/20/22 17:09 LDL Cholesterol Direct 64 mg/dL (50-130) 03/20/22 17:09 HDL Cholesterol 41 mg/dL (40-59) 03/20/22 17:09 Cholesterol/HDL Ratio 3.24 % 03/20/22 17:09 TSH 3.590 mlU/mL (0.270-4.200) 03/20/22 17:09 Salicylates < 0.3 mg/dL (2.8-20.0) L 03/20/22 17:09 Acetaminophen 5.0 ug/mL (10.0-30.0) L 03/20/22 17:09 Hepatitis A IgM Ab Non-reactive (NonReactive) 03/20/22 23:31 Hep Bs Antigen Non-reactive (Negative) 03/20/22 23:31 Hep B Core IgM Ab Non-reactive (NonReactive) 03/20/22 23:31 Hepatitis C Antibody Non-reactive (NonReactive) 03/20/22 23:31 Microbiology: Microbiology 03/20/22 17:09 Peripheral/Venous Blood Culture - Final NO GROWTH AFTER 5 DAYS 03/20/22 17:09 Peripheral/Venous Blood Culture - Final NO GROWTH AFTER 5 DAYS Owen/IV: Voiding Method Incontinent Active Medications - Current Medications Current Medications: Generic Name Dose Route Start Last Admin Trade Name Freq PRN Reason Stop Dose Admin Acetaminophen 650 mg 03/20/22 19:10 Acetaminophen 325 Mg Tab PO Q4H PRN Pain MILD(1-3)/Fever >100.5/PATTERSON Albuterol 2.5 mg 03/20/22 19:10 Albuterol 2.5 Mg/3 Ml Nebu IH Q4HRT PRN Shortness Of Breath Dextrose 0 ml 03/24/22 22:25 03/24/22 22:58 Dextrose 50% In Water (25gm) 50 Ml Syringe IV 50 ml Q30MIN PRN Administration Hypoglycemia Protocol Epoetin Raulito-epbx 20,000 unit 03/21/22 11:00 03/23/22 21:32 Epoetin Raulito-Epbx 20,000 Unit/1 Ml Vial IV 20,000 unit GARETH PRN Administration hemodialysis Hydromorphone HCl 0.5 mg 03/20/22 19:10 Hydromorphone 0.5 Mg/0.5 Ml Inj IV Q13H PRN Pain , Severe (7-10) Ceftriaxone Sodium 1 gm in 50 mls @ 100 mls/hr 03/23/22 09:00 03/25/22 11:05 Rocephin/Ns 1 Gm/50 Ml IV 100 mls/hr Q24H LEONOR Administration Protocol Sodium Chloride 100 mls @ 999 mls/hr 03/25/22 11:09 Nacl 0.9% IV GARETH PRN Hypotension Ondansetron HCl 4 mg 03/20/22 19:10 Ondansetron 4 Mg/2 Ml Inj IV Q8H PRN Nausea And Vomiting Oxycodone/Acetaminophen 1 tab 03/20/22 19:10 Oxycodone /Acetaminophen 5-325mg Tab PO Q6H PRN Pain, Moderate (4-6) Sodium Chloride 10 ml 03/20/22 22:00 03/25/22 21:55 Sodium Chloride 0.9% 10 Ml Flush Syringe IV 10 ml BID LEONOR Administration Sodium Chloride 10 ml 03/20/22 19:10 Sodium Chloride 0.9% 10 Ml Flush Syringe IV PRN PRN LINE FLUSH Nutrition/Malnutrition Assess - Dietary Evaluation Nutrition/Malnutrition Findings: Nutrition Notes Start: 03/21/22 12:46 Freq: Status: Active Protocol: Document 03/21/22 12:46 DEXTER (Rec: 03/21/22 13:14 DEXTER [id number]) Nutrition Notes Need for Assessment generated from: MD Order,phytopathology teacher,MST, Education,Low BMI Initial or Follow up Assessment Current Diagnosis CKD (stage V CKD),Hypertension ,Malnutrition Other Pertinent Diagnosis ESRD+HD, Anemia, R-LE Ischemia /Dry Gangrene, PAD, ... Current Diet Renal Diet (D 03/20). Labs/Tests 03/21: BUN 52, Crea 7.6. Pertinent Medications 03/21: Nutritionally unremarkable. Height 5 ft Weight 40.3 kg [place] Body Weight (kg) 45.45 BMI 17.3 Intake Prior to Admission Poor Weight change and time frame Pt states having, unintentionally, loss between 2 and 13 lb recently. Weight Status Underweight Subjective/Other Information RD consult for Skin risk, risk of malnutrition, Low BMI, and nutrition educatioin assessments. No reports available on Pt's PO intake of meals at the time , will assess at F/U. I will prescribe dietary supplements to compensate for poor or insuficient PO intake of meals and to support for wound healing processes. Pt is on Nasal Cannula, O2 saturation @ 98%, according to Physical Assessment History notes. Pt presents R-Foot stage IV wound and Gangrene as sinificant skin risk factors of concern, according to Physical Assessment History notes and Admission Documents. Pt shows unintentional body weight loss and prolongued poor appetite as significant risk for malnutrition factors, according to Physical Assessment History notes. Pt's Low BMI seems to correspond to a natural body composition, exacerbated by a sudden loss of body weight and possibly chronic malnutrition , as is mentioned in the Physical Assessment History and the Progress notes. Pt needs total assistance with ADL activities, not a candidate for Nutrition Education. Percent of energy/protein needs met: Prescribed Renal Diet provides for energy/protein needs (2, 072 Kcal/77 g) during LOS; additionally, Dietary Supplements will compensate for possible poor or insufficient PO intake of meals and support wound healing processes with 1,275 Kcal and 57 g of protein. Burn Absent Trauma Absent GI Symptoms None Food Allergy No Skin Integrity/Comment R-Foot stage IV wound and Gangrene. 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 Etiology PAD As Evidenced by Signs and Symptoms R-LE Ischemia/stage IV wound/ Dry Gangrene. #1 Nutrition Diagnosis Malnutrition Etiology Possibly ESRD. As Evidenced by Signs and Symptoms Prolongued poor appetite PO intake of meals <50% for more than 5 days, unintentional body weight loss between 2 and 13 lb recently. Is patient on ventilator? No Is Patient Ambulatory and/or Out of Bed No [place] [phone] Calculation [facility] Recommendations [facility] Additional Notes Protein: 1.2-1.5 g/Kg ABW; 48- 60 g/day. Fluids: 1 ml/Kcal, or as per MD. Nutrition Intervention Change Diet Order: Continue Renal Diet. Add Supplement/Snack (indicate name/kcal Start 8 fl oz Nepro w/ /protein ) CARBSTEADY; TID. Provides kCal: 1,275 Provides Protein (gm) 57 Goal #1 Support, through dietary supplementation, wound healing processes during LOS. Goal #2 Compensate, through dietary supplementation, for possible poor or insufficient PO intake of meals during LOS. Goal #3 Adjust the dietary intervention to better serve Pt's needs and clinical conditions during LOS. Follow-Up By: 03/28/22 Additional Comments Continue monitoring food tolerance, %PO intake of meals and ONS, and BM.
[2022-03-26 08:56] LABS: Basophils # (Auto) 0.1 K/mm3 (0.0-0.1); Basophils % (Auto) 0.6 % (0.0-1.8); Eosinophils # (Auto) 0.1 K/mm3 (0.0-0.4); Eosinophils % (Auto) 0.5 % (0.0-4.3); Lymphocytes # (Auto) 0.8 K/mm3 (1.2-5.4); Lymphocytes % (Auto) 5.3 % (13.4-35.0); Mean Corpuscular HGB Conc 32 % (30-34); Mean Corpuscular Volume 93 fl (79-97); Monocytes # (Auto) 0.8 K/mm3 (0.0-0.8); Monocytes % (Auto) 5.2 % (0.0-7.3); Platelet Count 193 K/mm3 (140-440); Red Blood Count 1.72 M/mm3 (3.65-5.03); Red Cell Distribution Width 19.1 % (13.2-15.2)
[2022-03-26 09:02] LABS: Hemoglobin 5.2 gm/dl (10.1-14.3)
[2022-03-26 09:08] LABS: Calcium 9.7 mg/dL (8.4-10.2)
[2022-03-26] MEDS: cefTRIAXone/NS 1 GM/50 ML 1 GM/50 ML BAG IV SCH (09:21)
[2022-03-26] MEDS ORDERED: SODIUM CHLORIDE 0.9% 500 ML 500 ML ONE ×2 (11:25→20:44)
[2022-03-26] MEDS ORDERED: LORazepam 2 MG/ML VIAL IV STA (11:50)
--- NOTE | 2022-03-26 16:28 | Progress Note ---
Assessment and Plan ESRD - HD today Lytes - F/u labs Vitals - Stable, continue f/u off BP meds Anemia - PRBC transfusion. Continue Epogen on HD Subjective Date of service: 03/26/22 Interval history: No complaint Objective - Vital Signs Vital signs: Vital Signs - 12hr 03/26/22 03/26/22 03/26/22 08:18 11:39 12:27 Temperature 98.9 F 98.6 F Pulse Rate 69 53 L Respiratory 18 19 Rate Blood Pressure 133/71 145/65 O2 Sat by Pulse 98 100 90 Oximetry 03/26/22 03/26/22 03/26/22 12:33 12:42 12:58 Temperature 98.6 F 98.3 F 98.3 F Pulse Rate 53 L 54 L 96 H Respiratory 19 19 19 Rate Blood Pressure 145/65 148/68 148/68 O2 Sat by Pulse 90 92 100 Oximetry 03/26/22 03/26/22 03/26/22 12:59 13:12 13:37 Temperature 98.4 F Pulse Rate 54 L 95 H Respiratory 19 Rate Blood Pressure 137/62 O2 Sat by Pulse 92 95 94 Oximetry 03/26/22 03/26/22 03/26/22 13:42 13:45 14:12 Temperature 98.4 F 98.4 F 98.4 F Pulse Rate 93 H 93 H 94 H Respiratory 19 19 19 Rate Blood Pressure 145/62 145/62 137/63 O2 Sat by Pulse 100 100 100 Oximetry 03/26/22 03/26/22 03/26/22 14:18 14:42 14:43 Temperature 98.4 F 98.4 F Pulse Rate 94 H 92 H 92 H Respiratory 19 19 Rate Blood Pressure 137/63 147/66 147/66 O2 Sat by Pulse 100 100 100 Oximetry - General Appearance General appearance: other (+Arousal) EENT: PERRL Neck: no JVD Respiratory: Present: Other (Good air entry) Cardiology: regular, S1S2 Gastrointestinal: other (Soft) Neurologic: disoriented - Lab 03/26/22 08:24 03/26/22 08:24 Most recent lab results Calcium 9.7 mg/dL (8.4-10.2) 03/26/22 08:24 Phosphorus 3.90 mg/dL (2.5-4.5) 03/26/22 08:24 Magnesium 1.70 mg/dL (1.7-2.3) 03/26/22 08:24 Medications & Allergies - Medications Allergies/Adverse Reactions: Allergies No Known Allergies Allergy (Verified 03/20/22 19:20) Home Medications: Home Medications Medication Instructions Recorded Confirmed Last Taken Type No Known Home Medications [No 03/22/22 03/22/22 Unknown History Reported Home Medications] Active Medications: Generic Name Dose Route Start Last Admin Trade Name Freq PRN Reason Stop Dose Admin Acetaminophen 650 mg 03/20/22 19:10 Acetaminophen 325 Mg Tab PO Q4H PRN Pain MILD(1-3)/Fever >100.5/PATTERSON Albuterol 2.5 mg 03/20/22 19:10 Albuterol 2.5 Mg/3 Ml Nebu IH Q4HRT PRN Shortness Of Breath Dextrose 0 ml 03/24/22 22:25 03/24/22 22:58 Dextrose 50% In Water (25gm) 50 Ml Syringe IV 50 ml Q30MIN PRN Administration Hypoglycemia Protocol Epoetin Raulito-epbx 20,000 unit 03/21/22 11:00 03/23/22 21:32 Epoetin Raulito-Epbx 20,000 Unit/1 Ml Vial IV 20,000 unit GARETH PRN Administration hemodialysis Hydromorphone HCl 0.5 mg 03/20/22 19:10 Hydromorphone 0.5 Mg/0.5 Ml Inj IV Q13H PRN Pain , Severe (7-10) Ceftriaxone Sodium 1 gm in 50 mls @ 100 mls/hr 03/23/22 09:00 03/26/22 09:21 Rocephin/Ns 1 Gm/50 Ml IV 03/29/22 10:59 100 mls/hr Q24H LEONOR Administration Protocol Sodium Chloride 100 mls @ 999 mls/hr 03/25/22 11:09 Nacl 0.9% IV GARETH PRN Hypotension Ondansetron HCl 4 mg 03/20/22 19:10 Ondansetron 4 Mg/2 Ml Inj IV Q8H PRN Nausea And Vomiting Oxycodone/Acetaminophen 1 tab 03/20/22 19:10 Oxycodone /Acetaminophen 5-325mg Tab PO Q6H PRN Pain, Moderate (4-6) Sodium Chloride 10 ml 03/20/22 22:00 03/26/22 09:21 Sodium Chloride 0.9% 10 Ml Flush Syringe IV 10 ml BID LEONOR Administration Sodium Chloride 10 ml 03/20/22 19:10 Sodium Chloride 0.9% 10 Ml Flush Syringe IV PRN PRN LINE FLUSH
[2022-03-26] MEDS: EPOETIN ALFA-EPBX 20,000 UNIT/1 ML VIAL IV PRN (18:15)
[2022-03-26] MEDS: hydrALAZINE 20 MG/1 ML INJ IV PRN (21:42)
[2022-03-27] MEDS ORDERED: hydrALAZINE 20 MG/1 ML INJ IV SCH
[2022-03-27] MEDS: cefTRIAXone/NS 1 GM/50 ML 1 GM/50 ML BAG IV SCH (09:23)
--- NOTE | 2022-03-27 10:02 | Progress Note ---
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 On admission, patient was noted to be guarded with diminished cognition and unable to provide history. Patient history provided by son who reported that the. Patient is bedbound and nonambulatory and has a palliative performance score of 30% and requires 6/6 assistance with activities of daily living. Patient has decreased verbalization and is unable to make needs known or follow simple commands. As per son, the patient developed low blood pressure during dialysis today. Patient was found to have a systolic blood pressure in the 70s. EMS was notified and upon arrival the patient was found to be in distress and subsequently transported to [facility] for further care and evaluation of the aforementioned symptoms. The patient was seen and evaluated in the emergency department. All lab and imaging studies reviewed. Patient was found to have right lower limb ischemia complicated by dry gangrene, end-stage renal disease, hyponatremia. Patient admitted to medical floor due to increased risk of worsening symptoms and for medical stabilization. Nephrology team consulted in ED. Interventional radiology team consulted in ED. Right ischemic lower extremity Right lower extremity cellulitis/dry gangrene Sepsis. Patient meets criteria given the tachycardia, tachypnea and diagnosis of right lower extremity cellulitis Peripheral vascular disease ESRD on HD palliation and hospice care Vascular dementia Cerebral atherosclerosis Protein calorie malnutrition 03/21/2022. Continue IV antibiotics. Follow-up blood cultures. Await IR consultation. Continue hemodialysis per nephrology recommendations. Nephrology consultation pending. 03/22/2022. Arterial Doppler reveals bilateral distal crural peripheral vascular disease with abnormal monophasic waveforms in both forelegs. No occlusive disease. Based on her ultrasound, the patient appears to have popliteal disease and distal disease. Plain films essentially negative. Continue empiric IV antibiotics and wound c are. Vascular to perform CTA of the abdomen and pelvis with lower extremity runoffs. Patient may require amputations given nonambulatory/bedbound status, contractures. 03/23/2022. CTA revealed moderate aortoiliac atherosclerosis with secondary moderate to severe obstruction along the right internal iliac artery and superior obstruction along the renal arteries. Moderate right superficial femoral atherosclerosis with secondary moderate to severe obstruction distally severe atherosclerosis is seen along the right lower leg with occlusion of all the arteries below the knee without distal reconstitution of flow. Mild obstructive moderate left superficial femoral atherosclerosis with occlusion of the majority of the left anterior tibial artery with reconstitution of flow at the ankle. There is occlusion of the left posterior tibial and peroneal arteries at their origins without distal reconstitution of flow. Await vascular surgery recommendations for revascularization. Continue hemodialysis per nephrology recommendations. Continue local wound care and IV antibiotics. 03/24/2022. Vascular surgery reports that given her contractures and severe dementia that she is not a candidate for revascularization. Options include palliation and hospice care versus above-knee amputation. Dr. Wells discussed with the son who is in agreement with palliation and hospice care. Consult case management for further evaluation 03/25/2022. Awaiting hospice placement. Continue supportive care. Follow-up H&H and transfuse for hemoglobin less than 7. 03/26/2022; patient has severe anemia hemoglobin 5.2, transfuse 2 unit PRBC stat, DC planning possible hospice placement 03/27/2022; hypokalemia, hypomagnesemia, replenished with potassium chloride and mag sulfate Monitor electrolytes History Interval history: Seen and examined the patient at the bedside Patient's chart and medications reviewed Hospitalist Physical - Constitutional Vitals: Temp Pulse Resp BP Pulse Ox 98.2 F 92 H 18 130/59 98 03/27/22 06:04 03/27/22 06:04 03/27/22 06:04 03/27/22 06:04 03/27/22 06:04 General appearance: Present: severe distress, cachectic, disheveled, other (Aggressive and extremely demented) HEART Score - HEART Score Troponin: Troponin T 0.203 ng/mL (0.00-0.029) H* 03/20/22 17:09 Results - Labs CBC & Chem 7: 03/27/22 10:44 03/27/22 10:44 Labs: Laboratory Last Values WBC 15.0 K/mm3 (4.5-11.0) H 03/26/22 08:24 RBC 1.72 M/mm3 (3.65-5.03) L 03/26/22 08:24 Hgb 5.2 gm/dl (10.1-14.3) L* 03/26/22 08:24 Hct 16.0 % (30.3-42.9) L* 03/26/22 08:24 MCV 93 fl (79-97) 07/12/22 08:24 MCH 30 pg (28-32) 03/26/22 08:24 MCHC 32 % (30-34) 03/26/22 08:24 RDW 19.1 % (13.2-15.2) H 03/26/22 08:24 Plt Count 193 K/mm3 (140-440) 03/26/22 08:24 Lymph % (Auto) 5.3 % (13.4-35.0) L 03/26/22 08:24 [place] % (Auto) 5.2 % (0.0-7.3) 03/26/22 08:24 Eos % (Auto) 0.5 % (0.0-4.3) 03/26/22 08:24 Baso % (Auto) 0.6 % (0.0-1.8) 03/26/22 08:24 Lymph # (Auto) 0.8 K/mm3 (1.2-5.4) L 03/26/22 08:24 [place] # (Auto) 0.8 K/mm3 (0.0-0.8) 03/26/22 08:24 Eos # (Auto) 0.1 K/mm3 (0.0-0.4) 03/26/22 08:24 Baso # (Auto) 0.1 K/mm3 (0.0-0.1) 03/26/22 08:24 Seg Neutrophils % 88.4 % (40.0-70.0) H 03/26/22 08:24 Seg Neutrophils # 13.3 K/mm3 (1.8-7.7) H 03/26/22 08:24 ESR > 140.0 mm/Hr (0-20) 03/20/22 17:09 PT 13.5 Sec. (12.2-14.9) 03/20/22 17:09 INR 0.93 (0.87-1.13) 03/20/22 17:09 Sodium 145 mmol/L (137-145) 03/26/22 08:24 Potassium 3.5 mmol/L (3.6-5.0) L 03/26/22 08:24 Chloride 105.3 mmol/L (98-107) 03/26/22 08:24 Carbon Dioxide 27 mmol/L (22-30) 03/26/22 08:24 Anion Gap 16 mmol/L 03/26/22 08:24 BUN 29 mg/dL (7-17) H 03/26/22 08:24 Creatinine 6.7 mg/dL (0.6-1.2) H 03/26/22 08:24 Estimated GFR 7 ml/min 03/26/22 08:24 BUN/Creatinine Ratio 4 % 03/26/22 08:24 Glucose 85 mg/dL (65-100) 03/26/22 08:24 POC Glucose 101 mg/dL (70-105) 03/27/22 00:57 Lactic Acid 1.00 mmol/L (0.7-2.0) 03/20/22 17:09 Calcium 9.7 mg/dL (8.4-10.2) 03/26/22 08:24 Phosphorus 3.90 mg/dL (2.5-4.5) 03/26/22 08:24 Magnesium 1.70 mg/dL (1.7-2.3) 03/26/22 08:24 Total Bilirubin 0.40 mg/dL (0.1-1.2) 03/20/22 17:09 AST 17 units/L (5-40) 03/20/22 17:09 ALT 9 units/L (7-56) 03/20/22 17:09 Alkaline Phosphatase 88 units/L (35-129) 03/20/22 17:09 Ammonia < 10.0 umol/L (25-60) L 03/20/22 17:09 Total Creatine Kinase 100 units/L (30-135) 03/20/22 17:09 Troponin T 0.203 ng/mL (0.00-0.029) H* 03/20/22 17:09 C-Reactive Protein 7.30 mg/dL (0.00-1.30) H 03/20/22 17:09 Total Protein 5.5 g/dL (6.3-8.2) L 03/20/22 17:09 Albumin 2.6 g/dL (3.9-5) L 03/20/22 17:09 Albumin/Globulin Ratio 0.9 % 03/20/22 17:09 Triglycerides 118 mg/dL (2-149) 03/20/22 17:09 Cholesterol 133 mg/dL (50-199) 03/20/22 17:09 LDL Cholesterol Direct 64 mg/dL (50-130) 03/20/22 17:09 HDL Cholesterol 41 mg/dL (40-59) 03/20/22 17:09 Cholesterol/HDL Ratio 3.24 % 03/20/22 17:09 TSH 3.590 mlU/mL (0.270-4.200) 03/20/22 17:09 Salicylates < 0.3 mg/dL (2.8-20.0) L 03/20/22 17:09 Acetaminophen 5.0 ug/mL (10.0-30.0) L 03/20/22 17:09 Hepatitis A IgM Ab Non-reactive (NonReactive) 03/20/22 23:31 Hep Bs Antigen Non-reactive (Negative) 03/20/22 23:31 Hep B Core IgM Ab Non-reactive (NonReactive) 03/20/22 23:31 Hepatitis C Antibody Non-reactive (NonReactive) 03/20/22 23:31 Blood Type O NEGATIVE 03/26/22 08:24 Antibody Screen Negative 03/26/22 08:24 Crossmatch See Detail 03/26/22 08:24 Owen/IV: Voiding Method Incontinent Active Medications - Current Medications Current Medications: Generic Name Dose Route Start Last Admin Trade Name Freq PRN Reason Stop Dose Admin Acetaminophen 650 mg 03/20/22 19:10 Acetaminophen 325 Mg Tab PO Q4H PRN Pain MILD(1-3)/Fever >100.5/PATTERSON Albuterol 2.5 mg 03/20/22 19:10 Albuterol 2.5 Mg/3 Ml Nebu IH Q4HRT PRN Shortness Of Breath Dextrose 0 ml 03/24/22 22:25 03/24/22 22:58 Dextrose 50% In Water (25gm) 50 Ml Syringe IV 50 ml Q30MIN PRN Administration Hypoglycemia Protocol Epoetin Raulito-epbx 20,000 unit 03/21/22 11:00 03/26/22 18:15 Epoetin Raulito-Epbx 20,000 Unit/1 Ml Vial IV 20,000 unit GARETH PRN Administration hemodialysis Hydralazine HCl 10 mg 03/26/22 21:13 03/26/22 21:42 Hydralazine 20 Mg/1 Ml Inj IV 10 mg Q6H PRN Administration Hypertension > 165/95 Hydromorphone HCl 0.5 mg 03/20/22 19:10 Hydromorphone 0.5 Mg/0.5 Ml Inj IV Q13H PRN Pain , Severe (7-10) Ceftriaxone Sodium 1 gm in 50 mls @ 100 mls/hr 03/23/22 09:00 03/27/22 09:23 Rocephin/Ns 1 Gm/50 Ml IV 03/29/22 10:59 100 mls/hr Q24H LEONOR Administration Protocol Sodium Chloride 100 mls @ 999 mls/hr 03/25/22 11:09 Nacl 0.9% IV GARETH PRN Hypotension Ondansetron HCl 4 mg 03/20/22 19:10 Ondansetron 4 Mg/2 Ml Inj IV Q8H PRN Nausea And Vomiting Oxycodone/Acetaminophen 1 tab 03/20/22 19:10 Oxycodone /Acetaminophen 5-325mg Tab PO Q6H PRN Pain, Moderate (4-6) Sodium Chloride 10 ml 03/20/22 22:00 03/26/22 21:44 Sodium Chloride 0.9% 10 Ml Flush Syringe IV 10 ml BID LEONOR Administration Sodium Chloride 10 ml 03/20/22 19:10 Sodium Chloride 0.9% 10 Ml Flush Syringe IV PRN PRN LINE FLUSH Nutrition/Malnutrition Assess - Dietary Evaluation Nutrition/Malnutrition Findings: Nutrition Notes Start: 03/21/22 12:46 Freq: Status: Active Protocol: Document 03/21/22 12:46 DEXTER (Rec: 03/21/22 13:14 DEXTER [id number]) Nutrition Notes Need for Assessment generated from: MD Order,operating cost clerk,MST, Education,Low BMI Initial or Follow up Assessment Current Diagnosis CKD (stage V CKD),Hypertension ,Malnutrition Other Pertinent Diagnosis ESRD+HD, Anemia, R-LE Ischemia /Dry Gangrene, PAD, ... Current Diet Renal Diet (D 03/20). Labs/Tests 03/21: BUN 52, Crea 7.6. Pertinent Medications 03/21: Nutritionally unremarkable. Height 5 ft Weight 40.3 kg [place] Body Weight (kg) 45.45 BMI 17.3 Intake Prior to Admission Poor Weight change and time frame Pt states having, unintentionally, loss between 2 and 13 lb recently. Weight Status Underweight Subjective/Other Information RD consult for Skin risk, risk of malnutrition, Low BMI, and nutrition educatioin assessments. No reports available on Pt's PO intake of meals at the time , will assess at F/U. I will prescribe dietary supplements to compensate for poor or insuficient PO intake of meals and to support for wound healing processes. Pt is on Nasal Cannula, O2 saturation @ 98%, according to Physical Assessment History notes. Pt presents R-Foot stage IV wound and Gangrene as sinificant skin risk factors of concern, according to Physical Assessment History notes and Admission Documents. Pt shows unintentional body weight loss and prolongued poor appetite as significant risk for malnutrition factors, according to Physical Assessment History notes. Pt's Low BMI seems to correspond to a natural body composition, exacerbated by a sudden loss of body weight and possibly chronic malnutrition , as is mentioned in the Physical Assessment History and the Progress notes. Pt needs total assistance with ADL activities, not a candidate for Nutrition Education. Percent of energy/protein needs met: Prescribed Renal Diet provides for energy/protein needs (2, 072 Kcal/77 g) during LOS; additionally, Dietary Supplements will compensate for possible poor or insufficient PO intake of meals and support wound healing processes with 1,275 Kcal and 57 g of protein. Burn Absent Trauma Absent GI Symptoms None Food Allergy No Skin Integrity/Comment R-Foot stage IV wound and Gangrene. 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 Etiology PAD As Evidenced by Signs and Symptoms R-LE Ischemia/stage IV wound/ Dry Gangrene. #1 Nutrition Diagnosis Malnutrition Etiology Possibly ESRD. As Evidenced by Signs and Symptoms Prolongued poor appetite PO intake of meals <50% for more than 5 days, unintentional body weight loss between 2 and 13 lb recently. Is patient on ventilator? No Is Patient Ambulatory and/or Out of Bed No REE-([facility]-confined to bed) [phone] Calculation Used for Recommendations [facility] Additional Notes Protein: 1.2-1.5 g/Kg ABW; 48- 60 g/day. Fluids: 1 ml/Kcal, or as per MD. Nutrition Intervention Change Diet Order: Continue Renal Diet. Add Supplement/Snack (indicate name/kcal Start 8 fl oz Nepro w/ /protein ) CARBSTEADY; TID. Provides kCal: 1,275 Provides Protein (gm) 57 Goal #1 Support, through dietary supplementation, wound healing processes during LOS. Goal #2 Compensate, through dietary supplementation, for possible poor or insufficient PO intake of meals during LOS. Goal #3 Adjust the dietary intervention to better serve Pt's needs and clinical conditions during LOS. Follow-Up By: 03/28/22 Additional Comments Continue monitoring food tolerance, %PO intake of meals and ONS, and BM.
[2022-03-27 11:38] LABS: Hematocrit 38.5 % (30.3-42.9); Hemoglobin 12.5 gm/dl (10.1-14.3)
[2022-03-27] MEDS ORDERED: SODIUM CHLORIDE 0.9% 100 ML IV PRN (11:55)
[2022-03-27 11:56] LABS: Calcium 10.1 mg/dL (8.4-10.2)
--- NOTE | 2022-03-27 11:57 | Progress Note ---
Assessment and Plan ESRD - HD in am Lytes - F/u labs Vitals - Stable, continue f/u off BP meds Anemia - S/p PRBC transfusion. Continue Epogen on HD. F/u H/H Subjective Date of service: 03/27/22 Interval history: No change, No new complaint Objective - Vital Signs Vital signs: Vital Signs - 12hr 03/26/22 03/27/22 03/27/22 23:58 00:28 00:58 Temperature 99.4 F 97.7 F 99.3 F Pulse Rate 98 H 100 H 95 H Respiratory 18 20 18 Rate Blood Pressure 114/46 119/42 121/43 O2 Sat by Pulse 98 99 96 Oximetry 03/27/22 03/27/22 03/27/22 01:00 01:28 01:58 Temperature 99.1 F 97.6 F Pulse Rate 94 H 95 H Respiratory 18 18 Rate Blood Pressure 126/46 127/55 O2 Sat by Pulse 98 100 100 Oximetry 03/27/22 03/27/22 03/27/22 02:28 02:33 02:52 Temperature 97.7 F 97.7 F 98.7 F Pulse Rate 94 H 94 H 93 H Respiratory 18 18 20 Rate Blood Pressure 121/58 121/58 118/52 O2 Sat by Pulse 98 99 100 Oximetry 03/27/22 03/27/22 03/27/22 03:07 03:37 04:07 Temperature 99.1 F 98.2 F 98.1 F Pulse Rate 100 H 98 H 95 H Respiratory 18 18 18 Rate Blood Pressure 125/62 125/65 143/62 O2 Sat by Pulse 100 98 100 Oximetry 03/27/22 03/27/22 03/27/22 04:31 04:37 05:07 Temperature 98.2 F 97.4 F L 98.6 F Pulse Rate 95 H 96 H 96 H Respiratory 16 18 18 Rate Blood Pressure 165/76 150/72 160/70 O2 Sat by Pulse 100 100 100 Oximetry 03/27/22 03/27/22 05:37 06:04 Temperature 99.1 F 98.2 F Pulse Rate 96 H 92 H Respiratory 18 18 Rate Blood Pressure 143/65 130/59 O2 Sat by Pulse 100 98 Oximetry - General Appearance General appearance: other (Awake & confused) EENT: PERRL Neck: no JVD Respiratory: Present: Clear to Ascultation Cardiology: regular, S1S2 Gastrointestinal: normal Neurologic: disoriented - Lab 03/27/22 10:44 03/26/22 08:24 Most recent lab results Calcium 9.7 mg/dL (8.4-10.2) 03/26/22 08:24 Phosphorus 3.90 mg/dL (2.5-4.5) 03/26/22 08:24 Magnesium 1.70 mg/dL (1.7-2.3) 03/26/22 08:24 Medications & Allergies - Medications Allergies/Adverse Reactions: Allergies No Known Allergies Allergy (Verified 03/20/22 19:20) Home Medications: Home Medications Medication Instructions Recorded Confirmed Last Taken Type No Known Home Medications [No 03/22/22 03/22/22 Unknown History Reported Home Medications] Active Medications: Generic Name Dose Route Start Last Admin Trade Name Freq PRN Reason Stop Dose Admin Acetaminophen 650 mg 03/20/22 19:10 Acetaminophen 325 Mg Tab PO Q4H PRN Pain MILD(1-3)/Fever >100.5/PATTERSON Albuterol 2.5 mg 03/20/22 19:10 Albuterol 2.5 Mg/3 Ml Nebu IH Q4HRT PRN Shortness Of Breath Dextrose 0 ml 03/24/22 22:25 03/24/22 22:58 Dextrose 50% In Water (25gm) 50 Ml Syringe IV 50 ml Q30MIN PRN Administration Hypoglycemia Protocol Epoetin Raulito-epbx 20,000 unit 03/21/22 11:00 03/26/22 18:15 Epoetin Raulito-Epbx 20,000 Unit/1 Ml Vial IV 20,000 unit GARETH PRN Administration hemodialysis Hydralazine HCl 10 mg 03/26/22 21:13 03/26/22 21:42 Hydralazine 20 Mg/1 Ml Inj IV 10 mg Q6H PRN Administration Hypertension > 165/95 Hydromorphone HCl 0.5 mg 03/20/22 19:10 Hydromorphone 0.5 Mg/0.5 Ml Inj IV Q13H PRN Pain , Severe (7-10) Ceftriaxone Sodium 1 gm in 50 mls @ 100 mls/hr 03/23/22 09:00 03/27/22 09:23 Rocephin/Ns 1 Gm/50 Ml IV 03/29/22 10:59 100 mls/hr Q24H LEONOR Administration Protocol Sodium Chloride 100 mls @ 999 mls/hr 03/25/22 11:09 Nacl 0.9% IV GARETH PRN Hypotension Ondansetron HCl 4 mg 03/20/22 19:10 Ondansetron 4 Mg/2 Ml Inj IV Q8H PRN Nausea And Vomiting Oxycodone/Acetaminophen 1 tab 03/20/22 19:10 Oxycodone /Acetaminophen 5-325mg Tab PO Q6H PRN Pain, Moderate (4-6) Sodium Chloride 10 ml 03/20/22 22:00 03/27/22 10:03 Sodium Chloride 0.9% 10 Ml Flush Syringe IV 10 ml BID LEONOR Administration Sodium Chloride 10 ml 03/20/22 19:10 Sodium Chloride 0.9% 10 Ml Flush Syringe IV PRN PRN LINE FLUSH
[2022-03-27] MEDS ORDERED: POTASSIUM CHLORIDE ER 20 MEQ TAB PO ONE (20:00)
[2022-03-27] MEDS ORDERED: MAGNESIUM SULFATE 2 GM/50 ML BAG IV ONE (20:01)
[2022-03-28] MEDS ORDERED: POTASSIUM CHLORIDE ER 20 MEQ TAB PO ONE (00:15)
[2022-03-28 05:58] LABS: Basophils # (Auto) 0.1 K/mm3 (0.0-0.1); Basophils % (Auto) 0.4 % (0.0-1.8); Eosinophils % (Auto) 0.2 % (0.0-4.3); Hematocrit 37.6 % (30.3-42.9); Hemoglobin 12.6 gm/dl (10.1-14.3); Lymphocytes # (Auto) 0.8 K/mm3 (1.2-5.4); Lymphocytes % (Auto) 4.6 % (13.4-35.0); Mean Corpuscular HGB Conc 33 % (30-34); Mean Corpuscular Volume 91 fl (79-97); Monocytes # (Auto) 1.1 K/mm3 (0.0-0.8); Monocytes % (Auto) 6.2 % (0.0-7.3); Platelet Count 149 K/mm3 (140-440); Red Blood Count 4.15 M/mm3 (3.65-5.03); Red Cell Distribution Width 16.8 % (13.2-15.2)
--- NOTE | 2022-03-28 09:26 | Progress Note ---
Assessment and Plan Assessment and plan: 6 YO Female with Vascular Dementia, Cerebral Atherosclerosis, ESRD on HD, Anemia of Chronic Disease, Malnutrition, Hyperparathyroidism, PAD, Debility presents to ED for evaluation hypotension with hemodialysis [employer]. On admission, patient was noted to be guarded with diminished cognition and unable to provide history. Patient history provided by son who reported that the. Patient is bedbound and nonambulatory and has a palliative performance score of 30% and requires 6/6 assistance with activities of daily living. Patient has decreased verbalization and is unable to make needs known or follow simple commands. As per son, the patient developed low blood pressure during dialysis today. Patient was found to have a systolic blood pressure in the 70s. EMS was notified and upon arrival the patient was found to be in distress and subsequently transported to [facility] for further care and evaluation of the aforementioned symptoms. The patient was seen and evaluated in the emergency department. All lab and imaging studies reviewed. Patient was found to have right lower limb ischemia complicated by dry gangrene, end-stage renal disease, hyponatremia. Patient admitted to medical floor due to increased risk of worsening symptoms and for medical stabilization. Nephrology team consulted in ED. Interventional radiology team consulted in ED. Right ischemic lower extremity Right lower extremity cellulitis/dry gangrene Sepsis. Patient meets criteria given the tachycardia, tachypnea and diagnosis of right lower extremity cellulitis Peripheral vascular disease ESRD on HD palliation and hospice care Vascular dementia Cerebral atherosclerosis Protein calorie malnutrition 03/21/2022. Continue IV antibiotics. Follow-up blood cultures. Await IR consultation. Continue hemodialysis per nephrology recommendations. Nephrology consultation pending. 03/22/2022. Arterial Doppler reveals bilateral distal crural peripheral vascular disease with abnormal monophasic waveforms in both forelegs. No occlusive disease. Based on her ultrasound, the patient appears to have popliteal disease and distal disease. Plain films essentially negative. Continue empiric IV antibiotics and wound ca re. Vascular to perform CTA of the abdomen and pelvis with lower extremity runoffs. Patient may require amputations given nonambulatory/bedbound status, contractures. 03/23/2022. CTA revealed moderate aortoiliac atherosclerosis with secondary moderate to severe obstruction along the right internal iliac artery and superior obstruction along the renal arteries. Moderate right superficial femoral atherosclerosis with secondary moderate to severe obstruction distally severe atherosclerosis is seen along the right lower leg with occlusion of all the arteries below the knee without distal reconstitution of flow. Mild obstructive moderate left superficial femoral atherosclerosis with occlusion of the majority of the left anterior tibial artery with reconstitution of flow at the ankle. There is occlusion of the left posterior tibial and peroneal arteries at their origins without distal reconstitution of flow. Await vascular surgery recommendations for revascularization. Continue hemodialysis per nephrology recommendations. Continue local wound care and IV antibiotics. 03/24/2022. Vascular surgery reports that given her contractures and severe dementia that she is not a candidate for revascularization. Options include palliation and hospice care versus above-knee amputation. Dr. Wells discussed with the son who is in agreement with palliation and hospice care. Consult case management for further evaluation 03/25/2022. Awaiting hospice placement. Continue supportive care. Follow-up H&H and transfuse for hemoglobin less than 7. 03/26/2022; patient has severe anemia hemoglobin 5.2, transfuse 2 unit PRBC stat, DC planning possible hospice placement 03/27/2022; hypokalemia, hypomagnesemia, replenished with potassium chloride and mag sulfate Monitor electrolytes History Interval history: Seen and examined the patient at bedside Hospitalist Physical - Constitutional Vitals: Temp Pulse Resp BP Pulse Ox 97.4 F L 94 H 20 157/98 90 03/27/22 22:24 03/28/22 04:23 03/28/22 04:23 03/28/22 04:23 03/28/22 08:37 General appearance: Present: severe distress, cachectic, disheveled, other (Aggressive and extremely demented) HEART Score - HEART Score Troponin: Troponin T 0.203 ng/mL (0.00-0.029) H* 03/20/22 17:09 Results - Labs CBC & Chem 7: 03/28/22 05:08 03/28/22 05:08 Labs: Laboratory Last Values WBC 16.9 K/mm3 (4.5-11.0) H 03/28/22 05:08 RBC 4.15 M/mm3 (3.65-5.03) 03/28/22 05:08 Hgb 12.6 gm/dl (10.1-14.3) 03/28/22 05:08 Hct 37.6 % (30.3-42.9) 03/28/22 05:08 MCV 91 fl (79-97) 03/28/22 05:08 MCH 30 pg (28-32) 03/28/22 05:08 MCHC 33 % (30-34) 03/28/22 05:08 RDW 16.8 % (13.2-15.2) H 03/28/22 05:08 Plt Count 149 K/mm3 (140-440) 03/28/22 05:08 Lymph % (Auto) 4.6 % (13.4-35.0) L 03/28/22 05:08 Posey % (Auto) 6.2 % (0.0-7.3) 03/28/22 05:08 Eos % (Auto) 0.2 % (0.0-4.3) 03/28/22 05:08 Baso % (Auto) 0.4 % (0.0-1.8) 03/28/22 05:08 Lymph # (Auto) 0.8 K/mm3 (1.2-5.4) L 03/28/22 05:08 Posey # (Auto) 1.1 K/mm3 (0.0-0.8) H 03/28/22 05:08 Eos # (Auto) 0.0 K/mm3 (0.0-0.4) 03/28/22 05:08 Baso # (Auto) 0.1 K/mm3 (0.0-0.1) 03/28/22 05:08 Seg Neutrophils % 88.6 % (40.0-70.0) H 03/28/22 05:08 Seg Neutrophils # 15.0 K/mm3 (1.8-7.7) H 03/28/22 05:08 ESR > 140.0 mm/Hr (0-20) 03/20/22 17:09 PT 13.5 Sec. (12.2-14.9) 03/20/22 17:09 INR 0.93 (0.87-1.13) 03/20/22 17:09 Sodium 141 mmol/L (137-145) 03/27/22 10:44 Potassium 3.8 mmol/L (3.6-5.0) 03/28/22 05:08 Chloride 101.1 mmol/L (98-107) 03/27/22 10:44 Carbon Dioxide 28 mmol/L (22-30) 03/27/22 10:44 Anion Gap 15 mmol/L 03/27/22 10:44 BUN 19 mg/dL (7-17) H 03/27/22 10:44 Creatinine 4.2 mg/dL (0.6-1.2) H 03/27/22 10:44 Estimated GFR 12 ml/min 03/27/22 10:44 BUN/Creatinine Ratio 5 % 03/27/22 10:44 Glucose 78 mg/dL (65-100) 03/27/22 10:44 POC Glucose 98 mg/dL (70-105) 03/28/22 07:58 Lactic Acid 1.00 mmol/L (0.7-2.0) 03/20/22 17:09 Calcium 10.1 mg/dL (8.4-10.2) 03/27/22 10:44 Phosphorus 3.50 mg/dL (2.5-4.5) 03/27/22 10:44 Magnesium 2.10 mg/dL (1.7-2.3) 03/28/22 05:08 Total Bilirubin 0.40 mg/dL (0.1-1.2) 03/20/22 17:09 AST 17 units/L (5-40) 03/20/22 17:09 ALT 9 units/L (7-56) 03/20/22 17:09 Alkaline Phosphatase 88 units/L (35-129) 03/20/22 17:09 Ammonia < 10.0 umol/L (25-60) L 03/20/22 17:09 Total Creatine Kinase 100 units/L (30-135) 03/20/22 17:09 Troponin T 0.203 ng/mL (0.00-0.029) H* 03/20/22 17:09 C-Reactive Protein 7.30 mg/dL (0.00-1.30) H 03/20/22 17:09 Total Protein 5.5 g/dL (6.3-8.2) L 03/20/22 17:09 Albumin 2.6 g/dL (3.9-5) L 03/20/22 17:09 Albumin/Globulin Ratio 0.9 % 03/20/22 17:09 Triglycerides 118 mg/dL (2-149) 03/20/22 17:09 Cholesterol 133 mg/dL (50-199) 03/20/22 17:09 LDL Cholesterol Direct 64 mg/dL (50-130) 03/20/22 17:09 HDL Cholesterol 41 mg/dL (40-59) 03/20/22 17:09 Cholesterol/HDL Ratio 3.24 % 03/20/22 17:09 TSH 3.590 mlU/mL (0.270-4.200) 03/20/22 17:09 Salicylates < 0.3 mg/dL (2.8-20.0) L 03/20/22 17:09 Acetaminophen 5.0 ug/mL (10.0-30.0) L 03/20/22 17:09 Hepatitis A IgM Ab Non-reactive (NonReactive) 03/20/22 23:31 Hep Bs Antigen Non-reactive (Negative) 03/20/22 23:31 Hep B Core IgM Ab Non-reactive (NonReactive) 03/20/22 23:31 Hepatitis C Antibody Non-reactive (NonReactive) 03/20/22 23:31 Blood Type O NEGATIVE 03/26/22 08:24 Antibody Screen Negative 03/26/22 08:24 Crossmatch See Detail 03/26/22 08:24 Owen/IV: Voiding Method Incontinent Active Medications - Current Medications Current Medications: Generic Name Dose Route Start Last Admin Trade Name Freq PRN Reason Stop Dose Admin Acetaminophen 650 mg 03/20/22 19:10 Acetaminophen 325 Mg Tab PO Q4H PRN Pain MILD(1-3)/Fever >100.5/PATTERSON Albuterol 2.5 mg 03/20/22 19:10 Albuterol 2.5 Mg/3 Ml Nebu IH Q4HRT PRN Shortness Of Breath Dextrose 0 ml 03/24/22 22:25 03/24/22 22:58 Dextrose 50% In Water (25gm) 50 Ml Syringe IV 50 ml Q30MIN PRN Administration Hypoglycemia Protocol Epoetin Raulito-epbx 20,000 unit 03/21/22 11:00 03/26/22 18:15 Epoetin Raulito-Epbx 20,000 Unit/1 Ml Vial IV 20,000 unit GARETH PRN Administration hemodialysis Hydralazine HCl 10 mg 03/26/22 21:13 03/26/22 21:42 Hydralazine 20 Mg/1 Ml Inj IV 10 mg Q6H PRN Administration Hypertension > 165/95 Hydromorphone HCl 0.5 mg 03/20/22 19:10 Hydromorphone 0.5 Mg/0.5 Ml Inj IV Q13H PRN Pain , Severe (7-10) Ceftriaxone Sodium 1 gm in 50 mls @ 100 mls/hr 03/23/22 09:00 03/27/22 09:23 Rocephin/Ns 1 Gm/50 Ml IV 03/29/22 10:59 100 mls/hr Q24H LEONOR Administration Protocol Sodium Chloride 100 mls @ 999 mls/hr 03/27/22 11:55 Nacl 0.9% IV GARETH PRN Hypotension Ondansetron HCl 4 mg 03/20/22 19:10 Ondansetron 4 Mg/2 Ml Inj IV Q8H PRN Nausea And Vomiting Oxycodone/Acetaminophen 1 tab 03/20/22 19:10 Oxycodone /Acetaminophen 5-325mg Tab PO Q6H PRN Pain, Moderate (4-6) Sodium Chloride 10 ml 03/20/22 22:00 03/28/22 00:36 Sodium Chloride 0.9% 10 Ml Flush Syringe IV 10 ml BID LEONOR Administration Sodium Chloride 10 ml 03/20/22 19:10 Sodium Chloride 0.9% 10 Ml Flush Syringe IV PRN PRN LINE FLUSH Nutrition/Malnutrition Assess - Dietary Evaluation Nutrition/Malnutrition Findings: Nutrition Notes Start: 03/21/22 12:46 Freq: Status: Active Protocol: Document 03/21/22 12:46 DEXTER (Rec: 03/21/22 13:14 DEXTER [id number]) Nutrition Notes Need for Assessment generated from: MD Order,tableau administrator,MST, Education,Low BMI Initial or Follow up Assessment Current Diagnosis CKD (stage V CKD),Hypertension ,Malnutrition Other Pertinent Diagnosis ESRD+HD, Anemia, R-LE Ischemia /Dry Gangrene, PAD, ... Current Diet Renal Diet (D 03/20). Labs/Tests 03/21: BUN 52, Crea 7.6. Pertinent Medications 03/21: Nutritionally unremarkable. Height 5 ft Weight 40.3 kg Dalton Body Weight (kg) 45.45 BMI 17.3 Intake Prior to Admission Poor Weight change and time frame Pt states having, unintentionally, loss between 2 and 13 lb recently. Weight Status Underweight Subjective/Other Information RD consult for Skin risk, risk of malnutrition, Low BMI, and nutrition educatioin assessments. No reports available on Pt's PO intake of meals at the time , will assess at F/U. I will prescribe dietary supplements to compensate for poor or insuficient PO intake of meals and to support for wound healing processes. Pt is on Nasal Cannula, O2 saturation @ 98%, according to Physical Assessment History notes. Pt presents R-Foot stage IV wound and Gangrene as sinificant skin risk factors of concern, according to Physical Assessment History notes and Admission Documents. Pt shows unintentional body weight loss and prolongued poor appetite as significant risk for malnutrition factors, according to Physical Assessment History notes. Pt's Low BMI seems to correspond to a natural body composition, exacerbated by a sudden loss of body weight and possibly chronic malnutrition , as is mentioned in the Physical Assessment History and the Progress notes. Pt needs total assistance with ADL activities, not a candidate for Nutrition Education. Percent of energy/protein needs met: Prescribed Renal Diet provides for energy/protein needs (2, 072 Kcal/77 g) during LOS; additionally, Dietary Supplements will compensate for possible poor or insufficient PO intake of meals and support wound healing processes with 1,275 Kcal and 57 g of protein. Burn Absent Trauma Absent GI Symptoms None Food Allergy No Skin Integrity/Comment R-Foot stage IV wound and Gangrene. Minimum of two criteria Yes Energy Intake (severe) < or equal to 50% Estimated Energy Requirement > or equal to 5 days Interpretation of Weight Loss (severe) >10% in 6 months Fluid Accumulation N/A Reduced Door Opener Strength N/A (non-severe) Protein-Calorie Malnutrition Severe #2 Nutrition Diagnosis Increased nutrient needs ( specify in comment below) Comments: Protein to support wound healing processes. Etiology PAD As Evidenced by Signs and Symptoms R-LE Ischemia/stage IV wound/ Dry Gangrene. #1 Nutrition Diagnosis Malnutrition Etiology Possibly ESRD. As Evidenced by Signs and Symptoms Prolongued poor appetite PO intake of meals <50% for more than 5 days, unintentional body weight loss between 2 and 13 lb recently. Is patient on ventilator? No Is Patient Ambulatory and/or Out of Bed No [facility] [phone] Calculation Used for Recommendations [facility] Additional Notes Protein: 1.2-1.5 g/Kg ABW; 48- 60 g/day. Fluids: 1 ml/Kcal, or as per MD. Nutrition Intervention Change Diet Order: Continue Renal Diet. Add Supplement/Snack (indicate name/kcal Start 8 fl oz Nepro w/ /protein ) CARBSTEADY; TID. Provides kCal: 1,275 Provides Protein (gm) 57 Goal #1 Support, through dietary supplementation, wound healing processes during LOS. Goal #2 Compensate, through dietary supplementation, for possible poor or insufficient PO intake of meals during LOS. Goal #3 Adjust the dietary intervention to better serve Pt's needs and clinical conditions during LOS. Follow-Up By: 03/28/22 Additional Comments Continue monitoring food tolerance, %PO intake of meals and ONS, and BM.
[2022-03-28] MEDS: cefTRIAXone/NS 1 GM/50 ML 1 GM/50 ML BAG IV SCH (09:46)
--- NOTE | 2022-03-28 12:06 | Progress Note ---
Assessment and Plan ESRD - Seen & stable on HD Lytes - F/u labs Vitals - Stable, continue f/u off BP meds Anemia - F/u H/H s/p PRBC transfusion Subjective Date of service: 03/28/22 Interval history: No new complaint Objective - Vital Signs Vital signs: Vital Signs - 12hr 03/28/22 03/28/22 03/28/22 01:00 04:23 07:25 Temperature 99.1 F Pulse Rate 94 H 94 H Respiratory 20 16 Rate Blood Pressure 166/80 Blood Pressure 157/98 [Left] O2 Sat by Pulse 90 90 97 Oximetry 03/28/22 03/28/22 08:37 10:00 Temperature Pulse Rate Respiratory Rate Blood Pressure Blood Pressure [Left] O2 Sat by Pulse 90 98 Oximetry - General Appearance General appearance: other (Awake. No change) EENT: PERRL Neck: no JVD Respiratory: Present: Other (Good air entry) Cardiology: regular, S1S2 Gastrointestinal: other (Soft) Neurologic: confused - Lab 03/28/22 05:08 03/28/22 05:08 Most recent lab results Calcium 10.1 mg/dL (8.4-10.2) 03/27/22 10:44 Phosphorus 3.50 mg/dL (2.5-4.5) 03/27/22 10:44 Magnesium 2.10 mg/dL (1.7-2.3) 03/28/22 05:08 Medications & Allergies - Medications Allergies/Adverse Reactions: Allergies No Known Allergies Allergy (Verified 03/20/22 19:20) Home Medications: Home Medications Medication Instructions Recorded Confirmed Last Taken Type No Known Home Medications [No 03/22/22 03/22/22 Unknown History Reported Home Medications] Active Medications: Generic Name Dose Route Start Last Admin Trade Name Freq PRN Reason Stop Dose Admin Acetaminophen 650 mg 03/20/22 19:10 Acetaminophen 325 Mg Tab PO Q4H PRN Pain MILD(1-3)/Fever >100.5/PATTERSON Albuterol 2.5 mg 03/20/22 19:10 Albuterol 2.5 Mg/3 Ml Nebu IH Q4HRT PRN Shortness Of Breath Dextrose 0 ml 03/24/22 22:25 03/24/22 22:58 Dextrose 50% In Water (25gm) 50 Ml Syringe IV 50 ml Q30MIN PRN Administration Hypoglycemia Protocol Epoetin Raulito-epbx 20,000 unit 03/21/22 11:00 03/26/22 18:15 Epoetin Raulito-Epbx 20,000 Unit/1 Ml Vial IV 20,000 unit GARETH PRN Administration hemodialysis Hydralazine HCl 10 mg 03/26/22 21:13 03/26/22 21:42 Hydralazine 20 Mg/1 Ml Inj IV 10 mg Q6H PRN Administration Hypertension > 165/95 Hydromorphone HCl 0.5 mg 03/20/22 19:10 Hydromorphone 0.5 Mg/0.5 Ml Inj IV Q13H PRN Pain , Severe (7-10) Ceftriaxone Sodium 1 gm in 50 mls @ 100 mls/hr 03/23/22 09:00 03/28/22 09:46 Rocephin/Ns 1 Gm/50 Ml IV 03/29/22 10:59 100 mls/hr Q24H LEONOR Administration Protocol Sodium Chloride 100 mls @ 999 mls/hr 03/27/22 11:55 Nacl 0.9% IV GARETH PRN Hypotension Ondansetron HCl 4 mg 03/20/22 19:10 Ondansetron 4 Mg/2 Ml Inj IV Q8H PRN Nausea And Vomiting Oxycodone/Acetaminophen 1 tab 03/20/22 19:10 Oxycodone /Acetaminophen 5-325mg Tab PO Q6H PRN Pain, Moderate (4-6) Sodium Chloride 10 ml 03/20/22 22:00 03/28/22 00:36 Sodium Chloride 0.9% 10 Ml Flush Syringe IV 10 ml BID LEONOR Administration Sodium Chloride 10 ml 03/20/22 19:10 Sodium Chloride 0.9% 10 Ml Flush Syringe IV PRN PRN LINE FLUSH
--- NOTE | 2022-03-28 15:49 | Progress Note ---
Hospitalist Physical - Constitutional Vitals: Temp Pulse Resp BP Pulse Ox 98.2 F 70 17 157/63 91 03/28/22 14:31 03/28/22 14:31 03/28/22 14:31 03/28/22 14:31 03/28/22 14:31 General appearance: Present: severe distress, cachectic, disheveled, other (Aggressive and extremely demented) HEART Score - HEART Score Troponin: Troponin T 0.203 ng/mL (0.00-0.029) H* 03/20/22 17:09 Results - Labs CBC & Chem 7: 03/28/22 05:08 03/28/22 05:08 Labs: Laboratory Last Values WBC 16.9 K/mm3 (4.5-11.0) H 03/28/22 05:08 RBC 4.15 M/mm3 (3.65-5.03) 03/28/22 05:08 Hgb 12.6 gm/dl (10.1-14.3) 03/28/22 05:08 Hct 37.6 % (30.3-42.9) 03/28/22 05:08 MCV 91 fl (79-97) 03/28/22 05:08 MCH 30 pg (28-32) 03/28/22 05:08 MCHC 33 % (30-34) 03/28/22 05:08 RDW 16.8 % (13.2-15.2) H 03/28/22 05:08 Plt Count 149 K/mm3 (140-440) 03/28/22 05:08 Lymph % (Auto) 4.6 % (13.4-35.0) L 03/28/22 05:08 [place] % (Auto) 6.2 % (0.0-7.3) 03/28/22 05:08 Eos % (Auto) 0.2 % (0.0-4.3) 03/28/22 05:08 Baso % (Auto) 0.4 % (0.0-1.8) 03/28/22 05:08 Lymph # (Auto) 0.8 K/mm3 (1.2-5.4) L 03/28/22 05:08 [place] # (Auto) 1.1 K/mm3 (0.0-0.8) H 03/28/22 05:08 Eos # (Auto) 0.0 K/mm3 (0.0-0.4) 03/28/22 05:08 Baso # (Auto) 0.1 K/mm3 (0.0-0.1) 03/28/22 05:08 Seg Neutrophils % 88.6 % (40.0-70.0) H 03/28/22 05:08 Seg Neutrophils # 15.0 K/mm3 (1.8-7.7) H 03/28/22 05:08 ESR > 140.0 mm/Hr (0-20) 03/20/22 17:09 PT 13.5 Sec. (12.2-14.9) 03/20/22 17:09 INR 0.93 (0.87-1.13) 03/20/22 17:09 Sodium 141 mmol/L (137-145) 03/27/22 10:44 Potassium 3.8 mmol/L (3.6-5.0) 03/28/22 05:08 Chloride 101.1 mmol/L (98-107) 03/27/22 10:44 Carbon Dioxide 28 mmol/L (22-30) 03/27/22 10:44 Anion Gap 15 mmol/L 03/27/22 10:44 BUN 19 mg/dL (7-17) H 03/27/22 10:44 Creatinine 4.2 mg/dL (0.6-1.2) H 03/27/22 10:44 Estimated GFR 12 ml/min 03/27/22 10:44 BUN/Creatinine Ratio 5 % 03/27/22 10:44 Glucose 78 mg/dL (65-100) 03/27/22 10:44 POC Glucose 111 mg/dL (70-105) H 03/28/22 11:35 Lactic Acid 1.00 mmol/L (0.7-2.0) 03/20/22 17:09 Calcium 10.1 mg/dL (8.4-10.2) 03/27/22 10:44 Phosphorus 3.50 mg/dL (2.5-4.5) 03/27/22 10:44 Magnesium 2.10 mg/dL (1.7-2.3) 03/28/22 05:08 Total Bilirubin 0.40 mg/dL (0.1-1.2) 03/20/22 17:09 AST 17 units/L (5-40) 03/20/22 17:09 ALT 9 units/L (7-56) 03/20/22 17:09 Alkaline Phosphatase 88 units/L (35-129) 03/20/22 17:09 Ammonia < 10.0 umol/L (25-60) L 03/20/22 17:09 Total Creatine Kinase 100 units/L (30-135) 03/20/22 17:09 Troponin T 0.203 ng/mL (0.00-0.029) H* 03/20/22 17:09 C-Reactive Protein 7.30 mg/dL (0.00-1.30) H 03/20/22 17:09 Total Protein 5.5 g/dL (6.3-8.2) L 03/20/22 17:09 Albumin 2.6 g/dL (3.9-5) L 03/20/22 17:09 Albumin/Globulin Ratio 0.9 % 03/20/22 17:09 Triglycerides 118 mg/dL (2-149) 03/20/22 17:09 Cholesterol 133 mg/dL (50-199) 03/20/22 17:09 LDL Cholesterol Direct 64 mg/dL (50-130) 03/20/22 17:09 HDL Cholesterol 41 mg/dL (40-59) 03/20/22 17:09 Cholesterol/HDL Ratio 3.24 % 03/20/22 17:09 TSH 3.590 mlU/mL (0.270-4.200) 03/20/22 17:09 Salicylates < 0.3 mg/dL (2.8-20.0) L 03/20/22 17:09 Acetaminophen 5.0 ug/mL (10.0-30.0) L 03/20/22 17:09 Hepatitis A IgM Ab Non-reactive (NonReactive) 03/20/22 23:31 Hep Bs Antigen Non-reactive (Negative) 03/20/22 23:31 Hep B Core IgM Ab Non-reactive (NonReactive) 03/20/22 23:31 Hepatitis C Antibody Non-reactive (NonReactive) 03/20/22 23:31 Blood Type O NEGATIVE 03/26/22 08:24 Antibody Screen Negative 03/26/22 08:24 Crossmatch See Detail 03/26/22 08:24 Owen/IV: Voiding Method Incontinent Active Medications - Current Medications Current Medications: Generic Name Dose Route Start Last Admin Trade Name Freq PRN Reason Stop Dose Admin Acetaminophen 650 mg 03/20/22 19:10 Acetaminophen 325 Mg Tab PO Q4H PRN Pain MILD(1-3)/Fever >100.5/PATTERSON Albuterol 2.5 mg 03/20/22 19:10 Albuterol 2.5 Mg/3 Ml Nebu IH Q4HRT PRN Shortness Of Breath Dextrose 0 ml 03/24/22 22:25 03/24/22 22:58 Dextrose 50% In Water (25gm) 50 Ml Syringe IV 50 ml Q30MIN PRN Administration Hypoglycemia Protocol Epoetin Raulito-epbx 20,000 unit 03/21/22 11:00 03/26/22 18:15 Epoetin Raulito-Epbx 20,000 Unit/1 Ml Vial IV 20,000 unit GARETH PRN Administration hemodialysis Hydralazine HCl 10 mg 03/26/22 21:13 03/26/22 21:42 Hydralazine 20 Mg/1 Ml Inj IV 10 mg Q6H PRN Administration Hypertension > 165/95 Hydromorphone HCl 0.5 mg 03/20/22 19:10 Hydromorphone 0.5 Mg/0.5 Ml Inj IV Q13H PRN Pain , Severe (7-10) Ceftriaxone Sodium 1 gm in 50 mls @ 100 mls/hr 03/23/22 09:00 03/28/22 09:46 Rocephin/Ns 1 Gm/50 Ml IV 03/29/22 10:59 100 mls/hr Q24H LEONOR Administration Protocol Sodium Chloride 100 mls @ 999 mls/hr 03/27/22 11:55 Nacl 0.9% IV GARETH PRN Hypotension Ondansetron HCl 4 mg 03/20/22 19:10 Ondansetron 4 Mg/2 Ml Inj IV Q8H PRN Nausea And Vomiting Oxycodone/Acetaminophen 1 tab 03/20/22 19:10 Oxycodone /Acetaminophen 5-325mg Tab PO Q6H PRN Pain, Moderate (4-6) Sodium Chloride 10 ml 03/20/22 22:00 03/28/22 00:36 Sodium Chloride 0.9% 10 Ml Flush Syringe IV 10 ml BID LEONOR Administration Sodium Chloride 10 ml 03/20/22 19:10 Sodium Chloride 0.9% 10 Ml Flush Syringe IV PRN PRN LINE FLUSH Nutrition/Malnutrition Assess - Dietary Evaluation Nutrition/Malnutrition Findings: Nutrition Notes Start: 03/21/22 12:46 Freq: Status: Active Protocol: Document 03/21/22 12:46 DEXTER (Rec: 03/21/22 13:14 DEXTER [id number]) Nutrition Notes Need for Assessment generated from: MD Order,motion picture critic,MST, Education,Low BMI Initial or Follow up Assessment Current Diagnosis CKD (stage V CKD),Hypertension ,Malnutrition Other Pertinent Diagnosis ESRD+HD, Anemia, R-LE Ischemia /Dry Gangrene, PAD, ... Current Diet Renal Diet (D 03/20). Labs/Tests 03/21: BUN 52, Crea 7.6. Pertinent Medications 03/21: Nutritionally unremarkable. Height 5 ft Weight 40.3 kg [place] Body Weight (kg) 45.45 BMI 17.3 Intake Prior to Admission Poor Weight change and time frame Pt states having, unintentionally, loss between 2 and 13 lb recently. Weight Status Underweight Subjective/Other Information RD consult for Skin risk, risk of malnutrition, Low BMI, and nutrition educatioin assessments. No reports available on Pt's PO intake of meals at the time , will assess at F/U. I will prescribe dietary supplements to compensate for poor or insuficient PO intake of meals and to support for wound healing processes. Pt is on Nasal Cannula, O2 saturation @ 98%, according to Physical Assessment History notes. Pt presents R-Foot stage IV wound and Gangrene as sinificant skin risk factors of concern, according to Physical Assessment History notes and Admission Documents. Pt shows unintentional body weight loss and prolongued poor appetite as significant risk for malnutrition factors, according to Physical Assessment History notes. Pt's Low BMI seems to correspond to a natural body composition, exacerbated by a sudden loss of body weight and possibly chronic malnutrition , as is mentioned in the Physical Assessment History and the Progress notes. Pt needs total assistance with ADL activities, not a candidate for Nutrition Education. Percent of energy/protein needs met: Prescribed Renal Diet provides for energy/protein needs (2, 072 Kcal/77 g) during LOS; additionally, Dietary Supplements will compensate for possible poor or insufficient PO intake of meals and support wound healing processes with 1,275 Kcal and 57 g of protein. Burn Absent Trauma Absent GI Symptoms None Food Allergy No Skin Integrity/Comment R-Foot stage IV wound and Gangrene. 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 Etiology PAD As Evidenced by Signs and Symptoms R-LE Ischemia/stage IV wound/ Dry Gangrene. #1 Nutrition Diagnosis Malnutrition Etiology Possibly ESRD. As Evidenced by Signs and Symptoms Prolongued poor appetite PO intake of meals <50% for more than 5 days, unintentional body weight loss between 2 and 13 lb recently. Is patient on ventilator? No Is Patient Ambulatory and/or Out of Bed No REE-([facility]-confined to bed) [phone] Calculation Used for Recommendations [facility] Additional Notes Protein: 1.2-1.5 g/Kg ABW; 48- 60 g/day. Fluids: 1 ml/Kcal, or as per MD. Nutrition Intervention Change Diet Order: Continue Renal Diet. Add Supplement/Snack (indicate name/kcal Start 8 fl oz Nepro w/ /protein ) CARBSTEADY; TID. Provides kCal: 1,275 Provides Protein (gm) 57 Goal #1 Support, through dietary supplementation, wound healing processes during LOS. Goal #2 Compensate, through dietary supplementation, for possible poor or insufficient PO intake of meals during LOS. Goal #3 Adjust the dietary intervention to better serve Pt's needs and clinical conditions during LOS. Follow-Up By: 03/28/22 Additional Comments Continue monitoring food tolerance, %PO intake of meals and ONS, and BM.
--- NOTE | 2022-03-28 15:53 | Discharge Summary ---
Providers - Providers Date of Admission: 03/20/22 19:10 Date of discharge: 03/29/22 Attending physician: ASHOK MUNIZ 03/20/22 15:43 Consult to Physician [CONS] Urgent Comment: Consulting Provider: EDDIE ELDER Physician Instructions: Reason For Exam: infected wound Consult to Physician [CONS] Urgent Comment: Consulting Provider: PATRICA ORTEGA Physician Instructions: Reason For Exam: esrd 03/20/22 19:02 Consult to Interventional Radiology [CONS] Routine Consulting Provider: GEORGE ESCALONA Reason For Exam: PAD Notified:: in am 03/21/22 04:49 Consult to Wound/ET Nurse [CONS] Routine Reason For Exam: wound eval 03/21/22 11:44 Consult to Dietitian/Nutrition [CONS] Routine Physician Instructions: Reason For Exam: Reason for Consult: Diet education 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 On admission, patient was noted to be guarded with diminished cognition and unable to provide history. Patient history provided by son who reported that the. Patient is bedbound and nonambulatory and has a palliative performance score of 30% and re quires 6/6 assistance with activities of daily living. Patient has decreased verbalization and is unable to make needs known or follow simple commands. As per son, the patient developed low blood pressure during dialysis today. Patient was found to have a systolic blood pressure in the 70s. EMS was notified and upon arrival the patient was found to be in distress and subsequently transported to [facility] for further care and evaluation of the aforementioned symptoms. The patient was seen and evaluated in the emergency department. All lab and imaging studies reviewed. Patient was found to have right lower limb ischemia complicated by dry gangrene, end-stage renal disease, hyponatremia. Patient admitted to medical floor due to increased risk of worsening symptoms and for medical stabilization. Nephrology team consulted in ED. Interventional radiology team consulted in ED. Right ischemic lower extremity Right lower extremity cellulitis/dry gangrene Sepsis. Patient meets criteria given the tachycardia, tachypnea and diagnosis of right lower extremity cellulitis Peripheral vascular disease ESRD on HD palliation and hospice care Vascular dementia Cerebral atherosclerosis Protein calorie malnutrition 03/21/2022. Continue IV antibiotics. Follow-up blood cultures. Await IR consultation. Continue hemodialysis per nephrology recommendations. Nephrology consultation pending. 03/22/2022. Arterial Doppler reveals bilateral distal crural peripheral vascular disease with abnormal monophasic waveforms in both forelegs. No occlusive disease. Based on her ultrasound, the patient appears to have popliteal disease and distal disease. Plain films essentially negative. Continue empiric IV antibiotics and wound care. Vascular to perform CTA of the abdomen and pelvis with lower extremity runoffs. Patient may require amputations given nonambulatory/bedbound status, contractures. 03/23/2022. CTA revealed moderate aortoiliac atherosclerosis with secondary moderate to severe obstruction along the right internal iliac artery and superior obstruction along the renal arteries. Moderate right superficial femoral atherosclerosis with secondary moderate to severe obstruction distally severe atherosclerosis is seen along the right lower leg with occlusion of all the arteries below the knee without distal reconstitution of flow. Mild obstructive moderate left superficial femoral atherosclerosis with occlusion of the majority of the left anterior tibial artery with reconstitution of flow at the ankle. There is occlusion of the left posterior tibial and peroneal arter ies at their origins without distal reconstitution of flow. Await vascular surgery recommendations for revascularization. Continue hemodialysis per nephrology recommendations. Continue local wound care and IV antibiotics. 03/24/2022. Vascular surgery reports that given her contractures and severe dementia that she is not a candidate for revascularization. Options include palliation and hospice care versus above-knee amputation. Dr. Wells discussed with the son who is in agreement with palliation and hospice care. Consult case management for further evaluation 03/25/2022. Awaiting hospice placement. Continue supportive care. Follow-up H&H and transfuse for hemoglobin less than 7. 03/26/2022; patient has severe anemia hemoglobin 5.2, transfuse 2 unit PRBC stat, DC planning possible hospice placement 03/27/2022; hypokalemia, hypomagnesemia, replenished with potassium chloride and mag sulfate Monitor electrolytes Exam - Constitutional Vitals: Temp Pulse Resp BP Pulse Ox 98.2 F 70 17 157/63 91 03/28/22 14:31 03/28/22 14:31 03/28/22 14:31 03/28/22 14:31 03/28/22 14:31 Plan Activity: advance as tolerated, fall precautions Diet: renal Additional Instructions: Follow renal. Hemodialysis per schedule. Follow-up primary care physician in 1 week. Private ID in 1 to 2 weeks. If you have worsening symptoms contact MD or go to the nearest emergency room as needed Follow up with: PRIMARY CARE,MD [Primary Care Provider] - 7 Days Prescriptions: levoFLOXacin [Levaquin] 250 mg PO QDAY #10 tablet oxyCODONE /ACETAMINOPHEN [Percocet 5/325 mg] 1 tab PO Q6H PRN #20 tablet PRN Reason: Pain, Moderate (4-6) Pantoprazole [Protonix TAB] 20 mg PO DAILY #30 DOXYCYCLINE Hyclate [Vibramycin CAP] 100 mg PO Q12HR #20 capsule
[2022-03-28] MEDS: hydrALAZINE 20 MG/1 ML INJ IV PRN (18:20)
[2022-03-29 06:00] LABS: Calcium 10.4 mg/dL (8.4-10.2)
--- NOTE | 2022-03-29 08:18 | Progress Note ---
Assessment and Plan Assessment and plan: 76 YO Female with Vascular Dementia, Cerebral Atherosclerosis, ESRD on HD, Anemia of Chronic Disease, Malnutrition, Hyperparathyroidism, PAD, Debility presents to ED for evaluation hypotension with hemodialysis [employer]AT[employer]. On admission, patient was noted to be guarded with diminished cognition and unable to provide history. Patient history provided by son who reported that the. Patient is bedbound and nonambulatory and has a palliative performance score of 30% and requires 6/6 assistance with activities of daily living. Patient has decreased verbalization and is unable to make needs known or follow simple commands. As per son, the patient developed low blood pressure during dialysis today. Patient was found to have a systolic blood pressure in the 70s. EMS was notified and upon arrival the patient was found to be in distress and subsequently transported to [facility] for further care and evaluation of the aforementioned symptoms. The patient was seen and evaluated in the emergency department. All lab and imaging studies reviewed. Patient was found to have right lower limb ischemia complicated by dry gangrene, end-stage renal disease, hyponatremia. Patient admitted to medical floor due to increased risk of worsening symptoms and for medical stabilization. Nephrology is following patient's family initially requested hospice, no intervention of patient's right lower extremity gangrene. However he requested hemodialysis to be continued, and hospice evaluation was canceled. Patient will be discharged home with some with home health Right ischemic lower extremity Right lower extremity cellulitis/dry gangrene Sepsis. Patient meets criteria given the tachycardia, tachypnea and diagnosis of right lower extremity cellulitis Peripheral vascular disease ESRD on HD palliation and hospice care Vascular dementia Cerebral atherosclerosis Protein calorie malnutrition 03/21/2022. Continue IV antibiotics. Follow-up blood cultures. Await IR consultation. Continue hemodialysis per nephrology recommendations. Nephrology consultation pending. 03/22/2022. Arterial Doppler reveals bilateral distal crural peripheral vascular disease with abnormal monophasic waveforms in both forelegs. No occlusive disease. Based on her ultrasound, the patient appears to have popliteal disease and distal disease. Plain films essentially negative. Continue empiric IV antibiotics and wound ca re. Vascular to perform CTA of the abdomen and pelvis with lower extremity runoffs. Patient may require amputations given nonambulatory/bedbound status, contractures. 03/23/2022. CTA revealed moderate aortoiliac atherosclerosis with secondary moderate to severe obstruction along the right internal iliac artery and superior obstruction along the renal arteries. Moderate right superficial femoral atherosclerosis with secondary moderate to severe obstruction distally severe atherosclerosis is seen along the right lower leg with occlusion of all the arteries below the knee without distal reconstitution of flow. Mild obstructive moderate left superficial femoral atherosclerosis with occlusion of the majority of the left anterior tibial artery with reconstitution of flow at the ankle. There is occlusion of the left posterior tibial and peroneal arteries at their origins without distal reconstitution of flow. Await vascular surgery recommendations for revascularization. Continue hemodialysis per nephrology recommendations. Continue local wound care and IV antibiotics. 03/24/2022. Vascular surgery reports that given her contractures and severe dementia that she is not a candidate for revascularization. Options include palliation and hospice care versus above-knee amputation. Dr. Wells discussed with the son who is in agreement with palliation and hospice care. Consult case management for further evaluation 03/25/2022. Awaiting hospice placement. Continue supportive care. Follow-up H&H and transfuse for hemoglobin less than 7. 03/26/2022; patient has severe anemia hemoglobin 5.2, transfuse 2 unit PRBC stat, DC planning possible hospice placement 03/27/2022; hypokalemia, hypomagnesemia, replenished with potassium chloride and mag sulfate Monitor electrolytes 03/28/2020; initially planning to discharge the patient after hemodialysis as requested by patient's son and case management However when the patient went for dialysis patient had AV graft malfunction, dialysis was canceled, vascular consulted for evaluation Discharge plans were held History Interval history: Preparing for patient's discharge yesterday after hemodialysis as requested by son and case management However HD team found AV malfunctioning, could not do the dialysis, vascular consulted for evaluation and management Discharge held, Patient is n.p.o. from midnight Hospitalist Physical - Constitutional Vitals: Temp Pulse Resp BP Pulse Ox 98.5 F 67 16 133/69 91 03/29/22 05:33 03/29/22 05:33 03/29/22 05:33 03/29/22 05:33 03/29/22 05:33 General appearance: Present: severe distress, cachectic, disheveled, other (Aggressive and extremely demented) HEART Score - HEART Score Troponin: Troponin T 0.203 ng/mL (0.00-0.029) H* 03/20/22 17:09 Results - Labs CBC & Chem 7: 03/28/22 05:08 03/29/22 04:49 Labs: Laboratory Last Values WBC 16.9 K/mm3 (4.5-11.0) H 03/28/22 05:08 RBC 4.15 M/mm3 (3.65-5.03) 03/28/22 05:08 Hgb 12.6 gm/dl (10.1-14.3) 03/28/22 05:08 Hct 37.6 % (30.3-42.9) 03/28/22 05:08 MCV 91 fl (79-97) 03/28/22 05:08 MCH 30 pg (28-32) 03/28/22 05:08 MCHC 33 % (30-34) 03/28/22 05:08 RDW 16.8 % (13.2-15.2) H 03/28/22 05:08 Plt Count 149 K/mm3 (140-440) 03/28/22 05:08 Lymph % (Auto) 4.6 % (13.4-35.0) L 03/28/22 05:08 Ashley % (Auto) 6.2 % (0.0-7.3) 03/28/22 05:08 Eos % (Auto) 0.2 % (0.0-4.3) 03/28/22 05:08 Baso % (Auto) 0.4 % (0.0-1.8) 03/28/22 05:08 Lymph # (Auto) 0.8 K/mm3 (1.2-5.4) L 03/28/22 05:08 Ashley # (Auto) 1.1 K/mm3 (0.0-0.8) H 03/28/22 05:08 Eos # (Auto) 0.0 K/mm3 (0.0-0.4) 03/28/22 05:08 Baso # (Auto) 0.1 K/mm3 (0.0-0.1) 03/28/22 05:08 Seg Neutrophils % 88.6 % (40.0-70.0) H 03/28/22 05:08 Seg Neutrophils # 15.0 K/mm3 (1.8-7.7) H 03/28/22 05:08 ESR > 140.0 mm/Hr (0-20) 03/20/22 17:09 PT 13.5 Sec. (12.2-14.9) 03/20/22 17:09 INR 0.93 (0.87-1.13) 03/20/22 17:09 Sodium 139 mmol/L (137-145) 03/29/22 04:49 Potassium 3.9 mmol/L (3.6-5.0) 03/29/22 04:49 Chloride 99.9 mmol/L (98-107) 03/29/22 04:49 Carbon Dioxide 27 mmol/L (22-30) 03/29/22 04:49 Anion Gap 16 mmol/L 03/29/22 04:49 BUN 43 mg/dL (7-17) H 03/29/22 04:49 Creatinine 6.2 mg/dL (0.6-1.2) H 03/29/22 04:49 Estimated GFR 8 ml/min 03/29/22 04:49 BUN/Creatinine Ratio 7 % 03/29/22 04:49 Glucose 81 mg/dL (65-100) 03/29/22 04:49 POC Glucose 80 mg/dL (70-105) 03/29/22 08:03 Lactic Acid 1.00 mmol/L (0.7-2.0) 03/20/22 17:09 Calcium 10.4 mg/dL (8.4-10.2) H 03/29/22 04:49 Phosphorus 3.50 mg/dL (2.5-4.5) 03/27/22 10:44 Magnesium 2.10 mg/dL (1.7-2.3) 03/28/22 05:08 Total Bilirubin 0.40 mg/dL (0.1-1.2) 03/20/22 17:09 AST 17 units/L (5-40) 03/20/22 17:09 ALT 9 units/L (7-56) 03/20/22 17:09 Alkaline Phosphatase 88 units/L (35-129) 03/20/22 17:09 Ammonia < 10.0 umol/L (25-60) L 03/20/22 17:09 Total Creatine Kinase 100 units/L (30-135) 03/20/22 17:09 Troponin T 0.203 ng/mL (0.00-0.029) H* 03/20/22 17:09 C-Reactive Protein 7.30 mg/dL (0.00-1.30) H 03/20/22 17:09 Total Protein 5.5 g/dL (6.3-8.2) L 03/20/22 17:09 Albumin 2.6 g/dL (3.9-5) L 03/20/22 17:09 Albumin/Globulin Ratio 0.9 % 03/20/22 17:09 Triglycerides 118 mg/dL (2-149) 03/20/22 17:09 Cholesterol 133 mg/dL (50-199) 03/20/22 17:09 LDL Cholesterol Direct 64 mg/dL (50-130) 03/20/22 17:09 HDL Cholesterol 41 mg/dL (40-59) 03/20/22 17:09 Cholesterol/HDL Ratio 3.24 % 03/20/22 17:09 TSH 3.590 mlU/mL (0.270-4.200) 03/20/22 17:09 Salicylates < 0.3 mg/dL (2.8-20.0) L 03/20/22 17:09 Acetaminophen 5.0 ug/mL (10.0-30.0) L 03/20/22 17:09 Coronavirus (PCR) Negative (Negative) 03/29/22 06:25 Hepatitis A IgM Ab Non-reactive (NonReactive) 03/20/22 23:31 Hep Bs Antigen Non-reactive (Negative) 03/20/22 23:31 Hep B Core IgM Ab Non-reactive (NonReactive) 03/20/22 23:31 Hepatitis C Antibody Non-reactive (NonReactive) 03/20/22 23:31 Blood Type O NEGATIVE 03/26/22 08:24 Antibody Screen Negative 03/26/22 08:24 Crossmatch See Detail 03/26/22 08:24 Owen/IV: Voiding Method Incontinent Active Medications - Current Medications Current Medications: Generic Name Dose Route Start Last Admin Trade Name Freq PRN Reason Stop Dose Admin Acetaminophen 650 mg 03/20/22 19:10 Acetaminophen 325 Mg Tab PO Q4H PRN Pain MILD(1-3)/Fever >100.5/PATTERSON Albuterol 2.5 mg 03/20/22 19:10 Albuterol 2.5 Mg/3 Ml Nebu IH Q4HRT PRN Shortness Of Breath Dextrose 0 ml 03/24/22 22:25 03/24/22 22:58 Dextrose 50% In Water (25gm) 50 Ml Syringe IV 50 ml Q30MIN PRN Administration Hypoglycemia Protocol Epoetin Raulito-epbx 20,000 unit 03/21/22 11:00 03/26/22 18:15 Epoetin Raulito-Epbx 20,000 Unit/1 Ml Vial IV 20,000 unit GARETH PRN Administration hemodialysis Hydralazine HCl 10 mg 03/26/22 21:13 03/28/22 18:20 Hydralazine 20 Mg/1 Ml Inj IV 10 mg Q6H PRN Administration Hypertension > 165/95 Hydromorphone HCl 0.5 mg 03/20/22 19:10 Hydromorphone 0.5 Mg/0.5 Ml Inj IV Q13H PRN Pain , Severe (7-10) Ceftriaxone Sodium 1 gm in 50 mls @ 100 mls/hr 03/23/22 09:00 03/28/22 09:46 Rocephin/Ns 1 Gm/50 Ml IV 03/29/22 10:59 100 mls/hr Q24H LEONOR Administration Protocol Sodium Chloride 100 mls @ 999 mls/hr 03/27/22 11:55 Nacl 0.9% IV GARETH PRN Hypotension Ondansetron HCl 4 mg 03/20/22 19:10 Ondansetron 4 Mg/2 Ml Inj IV Q8H PRN Nausea And Vomiting Oxycodone/Acetaminophen 1 tab 03/20/22 19:10 Oxycodone /Acetaminophen 5-325mg Tab PO Q6H PRN Pain, Moderate (4-6) Sodium Chloride 10 ml 03/20/22 22:00 03/28/22 23:28 Sodium Chloride 0.9% 10 Ml Flush Syringe IV 10 ml BID LEONOR Administration Sodium Chloride 10 ml 03/20/22 19:10 Sodium Chloride 0.9% 10 Ml Flush Syringe IV PRN PRN LINE FLUSH Nutrition/Malnutrition Assess - Dietary Evaluation Nutrition/Malnutrition Findings: Nutrition Notes Start: 03/21/22 12:46 Freq: Status: Active Protocol: Document 03/28/22 19:09 DEXTER (Rec: 03/28/22 19:33 DEXTER [id number]) Nutrition Notes Initial or Follow up Reassessment Current Diagnosis CKD (stage V CKD),Sepsis, Hypertension,Malnutrition Other Pertinent Diagnosis ESRD+HD, Anemia, R-LE Ischemia /Dry Gangrene, PAD, PVD, ... Current Diet Renal Diet+D Suppl (D 03/20), NPO (from 03/29 00:01). Labs/Tests 03/28: BUN 19, Crea 4.2. Pertinent Medications 03/28: Nutritonally unremartkable. Height 5 ft Weight 37.2 kg Masterson Body Weight (kg) 45.45 BMI 16.0 Weight change and time frame 3.1 Kg body weight loss in 1 week reported. Weight Status Underweight Subjective/Other Information RD consult for routine F/U on dietary advancement. Pt's PO intake of meals has been Negligible (0%) Pt refusing to eat, according to ADL notes. Pt is on Room Air, O2 saturation @ 90%, according to Physical Assessment History notes. Pt presents an unspecified area of concern for skin risk at this time, according to Physical Assessment History notes. Pt has been awaiting Hospice placement, but family finaly rejected and will be discharged home, according to Progress notes. Percent of energy/protein needs met: Prescribed Renal Diet provides for energy/protein needs (2, 072 Kcal/77 g) during LOS; additionally, Dietary Supplements will compensate for possible poor or insufficient PO intake of meals and support wound healing processes with 1,275 Kcal and 57 g of protein. Burn Absent Trauma Absent GI Symptoms None Food Allergy No Skin Integrity/Comment R-Foot stage IV wound and Gangrene. Current % PO Negligible Minimum of two criteria Yes Energy Intake (severe) < or equal to 50% Estimated Energy Requirement > or equal to 5 days Interpretation of Weight Loss (severe) >10% in 6 months Fluid Accumulation N/A Reduced System Support Developer Strength N/A (non-severe) Protein-Calorie Malnutrition Severe #2 Nutrition Diagnosis Increased nutrient needs ( specify in comment below) Comments: Protein to support wound healing processes. Diagnosis Progress(for reassessment Continues documentation) #1 Nutrition Diagnosis Malnutrition Comments: Pt's PO intake of meals has been Negligible (0%) Pt refusing to eat, according to ADL notes. Diagnosis Progress(for reassessment Continues documentation) Is patient on ventilator? No Is Patient Ambulatory and/or Out of Bed No REE-([place] Jeor-confined to bed) [phone] Calculation Used for Recommendations [place] Additional Notes Protein: 1.2-1.5 g/Kg ABW; 48- 60 g/day. Fluids: 1 ml/Kcal, or as per MD. Nutrition Intervention Change Diet Order: Continue Renal Diet. Add Supplement/Snack (indicate name/kcal Start Ensure High Protein; TID /protein ) Provides kCal: 480 Provides Protein (gm) 48 Goal #1 Support, through dietary supplementation, wound healing processes during LOS. Goal #2 Compensate, through dietary supplementation, for possible poor or insufficient PO intake of meals during LOS. Goal #3 Adjust the dietary intervention to better serve Pt's needs and clinical conditions during LOS. Follow-Up By: 04/04/22 Additional Comments Continue monitoring food tolerance, %PO intake of meals and ONS, and BM.
--- NOTE | 2022-03-29 08:56 | Event Note ---
Date: 03/29/22 Evaluated the patient for possible diagnostic fistulagram with thrombectomy. Patient with palpable thrill. Spoke with dialysis nurse, Debbi, and she will attempt to cannulate for dialysis today. If she is able to successfully cannulate the graft, will cancel the procedure and the patient can be discharged from a vascular surgery standpoint, after dialysis.
[2022-03-29] MEDS ORDERED: SODIUM CHLORIDE 0.9% 100 ML IV PRN (10:23)
[2022-03-29] MEDS: EPOETIN ALFA-EPBX 20,000 UNIT/1 ML VIAL IV PRN (11:29)
[2022-03-29 14:41] VITALS: BP 125/66
--- NOTE | 2022-03-29 15:43 | Progress Note ---
Assessment and Plan ESRD - Tolerated HD via Rt arm AVG Lytes - Stable. F/u labs Vitals - Stable, continue f/u off BP meds Anemia - Resolved with stable H/H s/p PRBC transfusion Pt for d/c today. Continue outpt HD per pre-admission schedule Subjective Date of service: 03/29/22 Interval history: Pt unable to get full dialysis yesterday b/c Nurse could not cannulate the AVGraft but pt seen today by Vasc Surg & noticed +Bruit. HD was therefore done with good flow via the AVG Objective - Vital Signs Vital signs: Vital Signs - 12hr 03/29/22 03/29/22 03/29/22 05:33 08:46 09:10 Temperature 98.5 F 97.0 F L Pulse Rate 67 87 Respiratory 16 20 Rate Blood Pressure 135/71 Blood Pressure 133/69 [Left] O2 Sat by Pulse 91 96 Oximetry O2 Sat by Pulse 96 Oximetry [ Anterior Bilateral Throughout] 03/29/22 03/29/22 03/29/22 09:20 09:30 09:45 Temperature Pulse Rate 87 92 H 95 H Respiratory Rate Blood Pressure 149/68 115/57 120/62 Blood Pressure [Left] O2 Sat by Pulse Oximetry O2 Sat by Pulse Oximetry [ Anterior Bilateral Throughout] 03/29/22 03/29/22 03/29/22 10:00 10:15 10:30 Temperature Pulse Rate 92 H 391 H 98 H Respiratory Rate Blood Pressure 126/65 143/67 146/58 Blood Pressure [Left] O2 Sat by Pulse Oximetry O2 Sat by Pulse Oximetry [ Anterior Bilateral Throughout] 03/29/22 03/29/22 03/29/22 10:45 11:00 11:15 Temperature Pulse Rate 95 H 90 72 Respiratory Rate Blood Pressure 116/54 119/38 127/61 Blood Pressure [Left] O2 Sat by Pulse Oximetry O2 Sat by Pulse Oximetry [ Anterior Bilateral Throughout] 03/29/22 03/29/22 03/29/22 11:30 11:45 12:00 Temperature Pulse Rate 81 93 H 95 H Respiratory Rate Blood Pressure 117/14 93/56 130/63 Blood Pressure [Left] O2 Sat by Pulse Oximetry O2 Sat by Pulse Oximetry [ Anterior Bilateral Throughout] 03/29/22 03/29/22 03/29/22 12:15 12:30 13:00 Temperature 98.2 F Pulse Rate 96 H 97 H 97 H Respiratory 16 Rate Blood Pressure 121/61 125/66 125/66 Blood Pressure [Left] O2 Sat by Pulse Oximetry O2 Sat by Pulse 96 Oximetry [ Anterior Bilateral Throughout] - General Appearance General appearance: other (Awake & responsive) EENT: PERRL, hearing intact Neck: no JVD Respiratory: Present: Clear to Ascultation Cardiology: regular, S1S2 Gastrointestinal: normal Integumentary: warm and dry Neurologic: other (Verbally responsive & appropriate, less confused) Psychiatric: cooperative - Lab 03/28/22 05:08 03/29/22 04:49 Most recent lab results Calcium 10.4 mg/dL (8.4-10.2) H 03/29/22 04:49 Phosphorus 3.50 mg/dL (2.5-4.5) 03/27/22 10:44 Magnesium 2.10 mg/dL (1.7-2.3) 03/28/22 05:08 Medications & Allergies - Medications Allergies/Adverse Reactions: Allergies No Known Allergies Allergy (Verified 03/20/22 19:20) Home Medications: Home Medications Medication Instructions Recorded Confirmed Last Taken Type DOXYCYCLINE Hyclate [Vibramycin 100 mg PO Q12HR #20 capsule 03/28/22 Unknown Rx CAP] Pantoprazole [Protonix TAB] 20 mg PO DAILY #30 03/28/22 Unknown Rx levoFLOXacin [Levaquin] 250 mg PO QDAY #10 tablet 03/28/22 Unknown Rx oxyCODONE /ACETAMINOPHEN [Percocet 1 tab PO Q6H PRN #20 tablet 03/28/22 Unknown Rx 5/325 mg] Active Medications: Generic Name Dose Route Start Last Admin Trade Name Freq PRN Reason Stop Dose Admin Acetaminophen 650 mg 03/20/22 19:10 Acetaminophen 325 Mg Tab PO Q4H PRN Pain MILD(1-3)/Fever >100.5/PATTERSON Albuterol 2.5 mg 03/20/22 19:10 Albuterol 2.5 Mg/3 Ml Nebu IH Q4HRT PRN Shortness Of Breath Dextrose 0 ml 03/24/22 22:25 03/24/22 22:58 Dextrose 50% In Water (25gm) 50 Ml Syringe IV 50 ml Q30MIN PRN Administration Hypoglycemia Protocol Epoetin Raulito-epbx 20,000 unit 03/21/22 11:00 03/29/22 11:29 Epoetin Raulito-Epbx 20,000 Unit/1 Ml Vial IV 20,000 unit GARETH PRN Administration hemodialysis Hydralazine HCl 10 mg 03/26/22 21:13 03/28/22 18:20 Hydralazine 20 Mg/1 Ml Inj IV 10 mg Q6H PRN Administration Hypertension > 165/95 Hydromorphone HCl 0.5 mg 03/20/22 19:10 Hydromorphone 0.5 Mg/0.5 Ml Inj IV Q13H PRN Pain , Severe (7-10) Sodium Chloride 100 mls @ 999 mls/hr 03/29/22 10:23 Nacl 0.9% IV GARETH PRN Hypotension Ondansetron HCl 4 mg 03/20/22 19:10 Ondansetron 4 Mg/2 Ml Inj IV Q8H PRN Nausea And Vomiting Oxycodone/Acetaminophen 1 tab 03/20/22 19:10 Oxycodone /Acetaminophen 5-325mg Tab PO Q6H PRN Pain, Moderate (4-6) Sodium Chloride 10 ml 03/20/22 22:00 03/28/22 23:28 Sodium Chloride 0.9% 10 Ml Flush Syringe IV 10 ml BID LEONOR Administration Sodium Chloride 10 ml 03/20/22 19:10 Sodium Chloride 0.9% 10 Ml Flush Syringe IV PRN PRN LINE FLUSH
== END 2022-03-29 17:45 | disposition home health service (06) | DRG 871 ==
LOC: ED 14:33 → 3A 19:10
PROVIDERS: ADMIT Internal Medicine; ATTEND Internal Medicine
PROC: 5A1D70Z Performance of Urinary Filtration, Intermittent, Less than 6 Hours Per Day (ICD-10-PCS; 2022-03-21)
PROC: 5A1D70Z Performance of Urinary Filtration, Intermittent, Less than 6 Hours Per Day (ICD-10-PCS; 2022-03-23)
PROC: 5A1D70Z Performance of Urinary Filtration, Intermittent, Less than 6 Hours Per Day (ICD-10-PCS; 2022-03-26)
PROC: 30233N1 Transfusion of Nonautologous Red Blood Cells into Peripheral Vein, Percutaneous Approach (ICD-10-PCS; 2022-03-26)
PROC: 5A1D70Z Performance of Urinary Filtration, Intermittent, Less than 6 Hours Per Day (ICD-10-PCS; principal; 2022-03-29)
DX: A41.9 Sepsis, unspecified organism (principal); N18.6 End stage renal disease; E43 Unspecified severe protein-calorie malnutrition; I96 Gangrene, not elsewhere classified; Z68.1 Body mass index [BMI] 19.9 or less, adult; N25.81 Secondary hyperparathyroidism of renal origin; E87.1 Hypo-osmolality and hyponatremia; L03.115 Cellulitis of right lower limb; I99.8 Other disorder of circulatory system; Z20.822 Contact with and (suspected) exposure to COVID-19; F01.50 Vascular dementia, unspecified severity, without behavioral disturbance, psychotic disturbance, mood disturbance, and anxiety; I67.2 Cerebral atherosclerosis; D63.8 Anemia in other chronic diseases classified elsewhere; R53.81 Other malaise; Z74.01 Bed confinement status; Z82.49 Family history of ischemic heart disease and other diseases of the circulatory system; E87.70 Fluid overload, unspecified
CPT/HCPCS: 36415; 70450; 71045; 75635; 80048; 80053; 80061; 80074; 80320; 82140; 82550; 82947; 82962; 83735; 84100; 84132; 84443; 84484; 85014; 85018; 85025; 85610; 85652; 86140; 86850; 86900; 86901; 86920; 87040; 93005; 93925; 94760; G0378; J3490; G0480; J0360; J0696; J0885; J2060; J3370; J3475; J7030; J7040; P9016; Q9967; U0003